=== PATIENT | female | born 1945 | race Hispanic/Latino ===

== ENCOUNTER 2018-08-26 23:28 | Inpatient (IN) | payer MEDICARE ==
[~2018-08-26] VITALS: Ht 152.4 cm; Wt 86.6 kg
[~2018-08-26 23:28] MED LIST: ASPIRIN81 M1 PO; HUMULIN R100 UNIT/2; HYDROCHLOROTHIA25 MG PO; LISINOPRIL-HCT1 EAC2; LISINOPRIL5 MG PO; MECLIZINE HCL12.5 MG PO; METFORMIN HCL1000 MG PO; NOVOLIN N100 UNIT/1 SQ; ONDANSETRON HCL4 MG PO; PRAVASTATIN SOD20 MG PO
--- OUTSIDE RECORDS SUMMARY | 2018-08-26 23:30 | XMS REPORT ---
Author Author [facility] Address Unknown Phone Unavailable Care Team Providers Care Pipe Wrapping Machine Operator Name Role Phone Unavailable Unavailable Problems This patient has no known problems. Allergies, Adverse Reactions, Alerts This patient has no known allergies or adverse reactions. Medications This patient has no known medications. Encounters Start Date/Time End Date/Time Encounter Type Admission Type Attending [facility] Care Department Encounter ID 2018-02-21 00:00:00 2018-02-21 00:00:00 Outpatient [facility] [id number] 2017-11-13 00:00:00 2017-11-13 00:00:00 Outpatient [facility] [id number] 2017-11-13 00:00:00 2017-11-13 00:00:00 Outpatient [facility] [id number] 2017-11-02 13:10:04 2017-11-02 13:10:04 Outpatient [facility] [id number] 2017-11-02 00:00:00 2017-11-02 00:00:00 Outpatient [facility] [id number] 2017-10-31 00:00:00 2017-10-31 00:00:00 Outpatient [facility] [id number] 2017-10-04 08:34:33 2017-10-04 08:34:33 Outpatient [facility] [id number] 2017-08-04 16:00:12 2017-08-04 16:00:12 Outpatient [facility] [id number] 2017-08-04 14:48:53 2017-08-04 14:48:53 Outpatient [facility] [id number] 2017-08-01 14:47:07 2017-08-01 14:47:07 Outpatient [facility] [id number] 2017-06-13 07:26:45 2017-06-13 07:26:45 Outpatient [facility] [id number] 2017-06-05 00:00:00 2017-06-05 00:00:00 Outpatient [facility] [id number] 2017-05-24 14:46:34 2017-05-24 14:46:34 Outpatient [facility] [id number] 2017-05-15 08:37:45 2017-05-15 08:37:45 Outpatient [facility] [id number] 2017-05-04 14:36:07 2017-05-04 14:36:07 Outpatient [facility] [id number]
[2018-08-26 23:57] LABS: BASOPHILS % 0.2 % (0.0-1.0); EOSINOPHILS # (AUTO) 0.1 (0.0-0.4); EOSINOPHILS % 0.6 % (0.0-6.0); HEMATOCRIT 37.4 % (34.2-44.1); HEMOGLOBIN 12.4 g/dL (12.0-16.0); LYMPHOCYTES # (AUTO) 2.2 (1.0-3.2); LYMPHOCYTES % 10.4 % (18.0-39.1); MEAN CORPUSCULAR HEMOGLOBIN 27.4 pg (28-32); MEAN CORPUSCULAR HGB CONC 33.2 g/dL (31-35); MEAN CORPUSCULAR VOLUME 82.6 fL (81-99); MONOCYTES # (AUTO) 1.4 (0.2-0.8); MONOCYTES % 6.7 % (4.4-11.3); NEUTROPHILS % 81.5 % (38.7-80.0); PLATELET COUNT 267 x10e3/uL (140-360); RED BLOOD COUNT 4.53 x10e6/uL (3.6-5.1); RED CELL DISTRIBUTION WIDTH 14.4 % (11.7-14.4)
[2018-08-27] VITALS (11 sets, daily range): BP systolic 94–187; BP diastolic 54–75
[2018-08-27] MEDS ORDERED: SODIUM CHLORIDE 0.9% 1000ML 1,000 ML IV ONE (00:15)
[2018-08-27] MEDS ORDERED: ONDANSETRON HCL INJ 2MG/ML 2ML 2 MG/ML VIAL IV STA (00:15)
[2018-08-27] MEDS ORDERED: SODIUM CHLORIDE 0.9% 1000ML 1,000 ML ONE (00:19)
[2018-08-27 00:22] LABS: ALBUMIN 3.5 g/dL (3.5-5.0); ALBUMIN/GLOBULIN RATIO 0.7 (0.8-2.0); ANION GAP 15.1 mmol/L (8-16); CREATININE, SERUM 1.23 mg/dL (0.57-1.11); POTASSIUM 4.1 mmol/L (3.5-5.1)
[2018-08-27 00:31] LABS: CALCIUM 9.6 mg/dL (8.4-10.2)
[2018-08-27] MEDS ORDERED: SODIUM CHLORIDE 0.9% 50ML 50 ML ONE (00:57)
[2018-08-27] MEDS ORDERED: IOPAMIDOL 370 MG/ML 200 ML INFUS..BTL INJ ONE (00:58)
[2018-08-27] MEDS ORDERED: CEFTRIAXONE SOD 1 GM/NS 50 ML 50 ML IV SCH (01:15)
[2018-08-27 01:53] LABS: BILIRUBIN,URINE NEGATIVE (NEGATIVE); CLARITY,URINE CLEAR (CLEAR); COLOR,URINE YELLOW (YELLOW); KETONES,URINE NEGATIVE (NEGATIVE); LEUKOCYTE ESTERASE ,URINE TRACE (NEGATIVE); NITRITE,URINE NEGATIVE (NEGATIVE); PROTEIN,URINE DIPSTICK NEGATIVE (NEGATIVE); URINE UROBILINOGEN 0.2 mg/dL (0.2 - 1)
--- NOTE | 2018-08-27 02:06 | Diagnostic Imaging Report ---
EXAM: CT Abdomen and Pelvis WITH contrast INDICATION: ^diarrhea, abd pain COMPARISON: None. TECHNIQUE: Abdomen and pelvis were scanned utilizing a multidetector helical scanner from the lung base to the pubic symphysis after administration of IV contrast. Coronal and sagittal reformations were obtained. Routine protocol was performed. Scan was performed when during portal venous phase. IV CONTRAST: 100 mL of Isovue-370 ORAL CONTRAST: Water RADIATION DOSE: Total DLP: 675 mGy*cm Estimated effective dose: (DLP x 0.015 x size factor) mSv COMPLICATIONS: None FINDINGS: LINES and TUBES: None. LOWER THORAX: Unremarkable HEPATOBILIARY: No focal hepatic lesions. No biliary ductal dilation. GALLBLADDER: No radio-opaque stones or sludge. No wall thickening. SPLEEN: No splenomegaly. PANCREAS: No focal masses or ductal dilatation. ADRENALS: No adrenal nodules KIDNEYS/URETERS: Kidneys enhance symmetrically. No hydronephrosis. No cystic or solid mass lesions. No stones. Bilateral extrarenal pelvis. GI TRACT: No abnormal distention, wall thickening, or evidence of bowel obstruction. Diffuse diverticulosis throughout the sigmoid colon with associated moderate inflammatory changes surrounding the distal sigmoid and wall thickening and enhancement consistent with acute diverticulitis. This is better seen on coronal image 48. Appendix is normal. PELVIC ORGANS/BLADDER: Unremarkable. LYMPH NODES: No lymphadenopathy. VESSELS: Moderate stenosis of the proximal SMA and mild stenosis of the proximal celiac trunk due to calcified plaques. Mild scattered atherosclerotic calcifications of the abdominal aorta without aneurysm. PERITONEUM / RETROPERITONEUM: No free air or fluid. BONES: Mild degenerative changes of the lower thoracic spine. SOFT TISSUES: Unremarkable. IMPRESSION: Diverticulosis of the sigmoid colon with associated acute diverticulitis. No perforation or abscess. Signed by: Dr. Terri Giles M.D. on 08/27/2018 2:03 AM
[2018-08-27 02:08] LABS: BACTERIA,URINE FEW /HPF; EPITHELIAL CELLS,URINE FEW /LPF; MUCUS,URINE FEW (RARE); WBC,URINE (MAN) 21-50 /HPF (0-5)
[2018-08-27] MEDS ORDERED: CIPROFLOXACIN 400 MG/D5W 200ML 200 ML IV SCH (02:15)
[2018-08-27] MEDS ORDERED: ONDANSETRON HCL INJ 2MG/ML 2ML 2 MG/ML VIAL IV PRN (02:15)
[2018-08-27] MEDS ORDERED: METRONIDAZOLE 500MG/NS 100ML 100 ML IV SCH (02:15)
[2018-08-27] MEDS ORDERED: ATORVASTATIN CA40 MG PO (02:43)
[2018-08-27] MEDS ORDERED: TYLENOL # 31 EA PO (02:45)
[2018-08-27] MEDS ORDERED: BENZONATATE100 MG PO (02:45)
[2018-08-27] MEDS ORDERED: GLIMEPIRIDE4 MG PO (02:45)
[2018-08-27] MEDS ORDERED: HUMULIN N100 UNITS/ SQ ×2 (02:46)
--- NOTE | 2018-08-27 02:50 | NUR ---
Pt received from ER. Pt A&O and in no apparent distress. Pt daughter at bedside. Pt on room air and tele. All safety measures ensured, bed alarm on, and pt call del rosario near. Pt encouraged to use call del rosario for assistance.
[2018-08-27] MEDS ORDERED: SODIUM CHLORIDE 0.9% 250ML 250 ML ONE (03:05)
--- NOTE | 2018-08-27 06:51 | NUR ---
H&P cc; N/V/D and fever HPI: 73yoF, PCP ??, with hx diverticulitis, now with N/V/D and fever, found to have acute diverticulitis, acute pancreatitis and UTI. no abdominal pain. PMH: diverticulosis, DM2 PShx; allergies; see emr fh/SH: no illicits/etoh; . meds; see MAR ROS: no cp/sob/NELSON/vision changes/skin rash/back pain v/s; revd PE tired appearing anicteric ns1s2 mod bs soft nd; minimal tenderness left lower abdomen skin dry n. affect a&ox3 kelley labs/meds; revd A/P: 73yoF Acute diverticulitis Acute pancreatitis PELON DM2 Morbid obesity BMI 35.4 UTI PLAN NPO IV abx IVF lipids/hba1c SCD/pepcid dispo; will need colonoscopy in 6-8 weeks Kris Clement MD, Phd.
[2018-08-27] MEDS ORDERED: DEXTROSE 50% SYRINGE 50 ML IV PRN (07:00)
--- NOTE | 2018-08-27 07:19 | NUR ---
Bedside report and walking rounds complete.
[2018-08-27] MEDS: SODIUM CHLORIDE 0.9% 1000ML 1,000 ML IV SCH ×2 (08:24→18:11)
[2018-08-27] MEDS: FAMOTIDINE 20 MG/2 ML VIAL IV SCH ×2 (08:44→17:53)
[2018-08-27] MEDS: INSULIN REGULAR, HUMAN 100 UNIT/1 ML 3ML VIAL SQ SCH ×4 (08:56→21:32)
[2018-08-27 09:19] LABS: CHOL/HDL RATIO 2.8 (3.0-3.6)
[2018-08-27] MEDS: METRONIDAZOLE 500MG/NS 100ML 100 ML IV SCH ×3 (12:07→21:31)
--- NOTE | 2018-08-27 18:11 | NUR ---
Pt in bed, no c/o pain. A&O x4, resp WNL. New IV to L hand, patent, no swelling or redness to insertion site. IV fluids being administered. Able to ambulate with walker provided by home. Tele monitor in place. Call light within reach, bed in lowest position.
--- NOTE | 2018-08-27 19:15 | NUR ---
Patient complain of headache. Dr Clement notified new orders received.
[2018-08-27] MEDS: ACETAMINOPHEN 1000 MG/100 ML IV PRN (19:47)
[2018-08-28] MEDS: SODIUM CHLORIDE 0.9% 1000ML 1,000 ML IV SCH ×3 (03:09→23:00)
[2018-08-28] MEDS: CIPROFLOXACIN 400 MG/D5W 200ML 200 ML IV SCH ×2 (03:09→11:42)
[2018-08-28 04:38] VITALS: BP 137/62
[2018-08-28] MEDS: ACETAMINOPHEN 1000 MG/100 ML IV PRN (04:40)
[2018-08-28] MEDS: METRONIDAZOLE 500MG/NS 100ML 100 ML IV SCH ×3 (05:28→21:49)
[2018-08-28 05:34] LABS: BASOPHILS % 0.2 % (0.0-1.0); EOSINOPHILS # (AUTO) 0.2 (0.0-0.4); EOSINOPHILS % 1.5 % (0.0-6.0); HEMOGLOBIN 10.6 g/dL (12.0-16.0); LYMPHOCYTES # (AUTO) 1.9 (1.0-3.2); LYMPHOCYTES % 17.4 % (18.0-39.1); MEAN CORPUSCULAR HEMOGLOBIN 27.5 pg (28-32); MEAN CORPUSCULAR HGB CONC 33.1 g/dL (31-35); MEAN CORPUSCULAR VOLUME 83.1 fL (81-99); MONOCYTES # (AUTO) 0.8 (0.2-0.8); MONOCYTES % 7.4 % (4.4-11.3); NEUTROPHILS # (AUTO) 7.7 (2.1-6.9); NEUTROPHILS % 72.8 % (38.7-80.0); PLATELET COUNT 193 x10e3/uL (140-360); RED BLOOD COUNT 3.85 x10e6/uL (3.6-5.1); RED CELL DISTRIBUTION WIDTH 14.6 % (11.7-14.4)
[2018-08-28 05:58] LABS: ANION GAP 9.7 mmol/L (8-16); CALCIUM 8.3 mg/dL (8.4-10.2); CREATININE, SERUM 1.01 mg/dL (0.57-1.11); MAGNESIUM 1.7 MG/DL (1.3-2.1); POTASSIUM 3.7 mmol/L (3.5-5.1)
--- NOTE | 2018-08-28 06:21 | NUR ---
DR. CHANCE NOTIFIED OF HGB RESULT NO NEW ORDERS.
[2018-08-28 07:25] VITALS: BP 144/64
[2018-08-28] MEDS: FAMOTIDINE 20 MG/2 ML VIAL IV SCH ×2 (07:48→17:11)
--- NOTE | 2018-08-28 08:02 | NUR ---
IM- progress note O/N; no events ROS: no cp/sob/NELSON/vision changes/skin rash/back pain v/s; revd PE tired appearing anicteric ns1s2 mod bs soft nd; minimal tenderness left lower abdomen skin dry n. affect a&ox3 kelley labs/meds; revd A/P: 73yoF Acute diverticulitis Acute pancreatitis PELON DM2 Morbid obesity BMI 35.4 UTI PLAN NPO IV abx IVF lipids/hba1c SCD/pepcid dispo; will need colonoscopy in 6-8 weeks 08/28/18 cont care; advance to CLD. Kris Clement MD, Phd.
[2018-08-28] MEDS: INSULIN REGULAR, HUMAN 100 UNIT/1 ML 3ML VIAL SQ SCH ×4 (08:05→20:45)
--- NOTE | 2018-08-28 08:48 | NUR ---
Pt at bedside, advanced diet, tolerating well. C/o pain / to ABD. IV patent, no s/s of infiltration. Able to ambulate with assistance and use of a cane. A&O x3. Resp WNL. Call light within reach, bed in lowest position.
[2018-08-28 09:55] VITALS: BP 144/64
[2018-08-28 11:14] VITALS: BP 146/65
[2018-08-28 15:26] VITALS: BP 152/73
--- NOTE | 2018-08-28 18:52 | NUR ---
Received report from previous nurse. Call light within reach. Patient in bed. Family at bedside
[2018-08-28 19:25] VITALS: BP 147/66
[2018-08-29] VITALS (8 sets, daily range): BP systolic 132–187; BP diastolic 62–71
[2018-08-29] MEDS: METRONIDAZOLE 500MG/NS 100ML 100 ML IV SCH ×3 (06:14→22:20)
--- NOTE | 2018-08-29 07:03 | NUR ---
Gave report to oncoming nurse. Call light within reach. Patient in the bathroom. daughter at bedside
[2018-08-29] MEDS: INSULIN REGULAR, HUMAN 100 UNIT/1 ML 3ML VIAL SQ SCH ×4 (08:05→21:30)
[2018-08-29] MEDS: FAMOTIDINE 20 MG/2 ML VIAL IV SCH ×2 (08:10→16:51)
[2018-08-29] MEDS ORDERED: DOCUSATE SODIUM 100 MG CAP PO PRN (08:30)
[2018-08-29 08:39] LABS: BASOPHILS % 0.2 % (0.0-1.0); EOSINOPHILS # (AUTO) 0.2 (0.0-0.4); EOSINOPHILS % 1.3 % (0.0-6.0); HEMATOCRIT 33.7 % (34.2-44.1); LYMPHOCYTES # (AUTO) 2.6 (1.0-3.2); LYMPHOCYTES % 21.2 % (18.0-39.1); MEAN CORPUSCULAR HGB CONC 32.6 g/dL (31-35); MEAN CORPUSCULAR VOLUME 82.8 fL (81-99); MONOCYTES # (AUTO) 0.8 (0.2-0.8); MONOCYTES % 6.8 % (4.4-11.3); NEUTROPHILS # (AUTO) 8.7 (2.1-6.9); NEUTROPHILS % 69.9 % (38.7-80.0); PLATELET COUNT 242 x10e3/uL (140-360); RED BLOOD COUNT 4.07 x10e6/uL (3.6-5.1); RED CELL DISTRIBUTION WIDTH 14.5 % (11.7-14.4)
[2018-08-29] MEDS: LABETALOL HCL 5 MG/ML 20ML VIAL IV PRN (09:00)
[2018-08-29] MEDS: SODIUM CHLORIDE 0.9% 1000ML 1,000 ML IV SCH ×2 (09:00→19:00)
[2018-08-29] MEDS: CIPROFLOXACIN 400 MG/D5W 200ML 200 ML IV SCH (09:00)
[2018-08-29 09:04] LABS: ANION GAP 10.7 mmol/L (8-16); BLOOD UREA NITROGEN 7 mg/dL (7-26); BUN/CREATININE RATIO 8 (6-25); CALCIUM 8.6 mg/dL (8.4-10.2); CARBON DIOXIDE 23 mmol/L (22-29); CHLORIDE 102 mmol/L (98-107); CREATININE, SERUM 0.86 mg/dL (0.57-1.11); EST GLOMERULAR FILTRATION RATE > 60 ML/MIN (60-); GLUCOSE 201 mg/dL (74-118); MAGNESIUM 1.4 MG/DL (1.3-2.1); POTASSIUM 3.7 mmol/L (3.5-5.1); SODIUM 132 mmol/L (136-145)
--- NOTE | 2018-08-29 18:49 | NUR ---
walking rounds made with shift superintendent caustic cresylate nurse, patient aware of change and in no distress. call del rosario within reach and bed in lowest position.
--- NOTE | 2018-08-29 19:16 | NUR ---
Received patient in bed watching tv with family at bedside. Resp even and unlabored. Denies n/v or pain at this time. Call light within reach and instructed to call for assistance.
--- NOTE | 2018-08-29 20:26 | NUR ---
Report called to Summer ROSAS. AAOX3. No resp distress. Denies n/v or pain at this time. All belongings with patient. No complaints.
--- NOTE | 2018-08-29 20:39 | NUR ---
RECEIVED PT FROM OBSERVATION VIA WHEEL CHAIR.PT AAO X 3.RESPIRATIONS EVEN/NON LABORED.NO S/S OF DISTRESS NOTED.PT DENIES ANY PAIN AT THIS TIME.DAUGHTER AT BEDSIDE.INSTRUCTED PT TO CALL FOR ASSISTANCE NEEDED BY USING CALL LIGHT.PT VERBALIZED UNDERSTANDING.CALL LIGHT WITHIN EASY REACH.
--- NOTE | 2018-08-29 21:58 | NUR ---
IM- progress note O/N; no events ROS: no cp/sob/NELSON/vision changes/skin rash/back pain v/s; revd PE tired appearing anicteric ns1s2 mod bs soft nd; minimal tenderness left lower abdomen skin dry n. affect a&ox3 kelley labs/meds; revd A/P: 73yoF Acute diverticulitis Acute pancreatitis PELON DM2 Morbid obesity BMI 35.4 UTI PLAN NPO IV abx IVF lipids/hba1c SCD/pepcid dispo; will need colonoscopy in 6-8 weeks 08/28/18 cont care; advance to CLD. 08/29 at 715am: Cultures negative; PT consult; CLD; check labs; Kris Clement MD, Phd.
[2018-08-30] VITALS (7 sets, daily range): BP systolic 137–189; BP diastolic 58–77
[2018-08-30] MEDS: SODIUM CHLORIDE 0.9% 1000ML 1,000 ML IV SCH ×2 (05:59→17:29)
[2018-08-30] MEDS: METRONIDAZOLE 500MG/NS 100ML 100 ML IV SCH ×3 (06:06→21:40)
[2018-08-30] MEDS: METOPROLOL TARTRATE 25 MG TAB PO SCH ×2 (06:55→17:15)
--- NOTE | 2018-08-30 07:15 | NUR ---
pt alert resp even and unlabored at this time no distress noted, pt able to make needs known. call light in reach.
--- NOTE | 2018-08-30 07:31 | NUR ---
REPORT GIVEN TO ONCOMING NURSE,WALKING ROUNDS MADE.PT RESTING IN BED WITH NO S/S OF DISTRESS.
[2018-08-30 07:50] LABS: BASOPHILS % 0.3 % (0.0-1.0); EOSINOPHILS # (AUTO) 0.2 (0.0-0.4); EOSINOPHILS % 2.4 % (0.0-6.0); HEMATOCRIT 31.1 % (34.2-44.1); HEMOGLOBIN 10.1 g/dL (12.0-16.0); LYMPHOCYTES # (AUTO) 2.6 (1.0-3.2); LYMPHOCYTES % 27.7 % (18.0-39.1); MEAN CORPUSCULAR HEMOGLOBIN 27.2 pg (28-32); MEAN CORPUSCULAR HGB CONC 32.5 g/dL (31-35); MEAN CORPUSCULAR VOLUME 83.8 fL (81-99); MONOCYTES # (AUTO) 0.7 (0.2-0.8); MONOCYTES % 7.9 % (4.4-11.3); NEUTROPHILS # (AUTO) 5.7 (2.1-6.9); NEUTROPHILS % 61.3 % (38.7-80.0); PLATELET COUNT 248 x10e3/uL (140-360); RED BLOOD COUNT 3.71 x10e6/uL (3.6-5.1); RED CELL DISTRIBUTION WIDTH 14.5 % (11.7-14.4)
[2018-08-30 08:11] LABS: ANION GAP 10.8 mmol/L (8-16); BLOOD UREA NITROGEN 6 mg/dL (7-26); BUN/CREATININE RATIO 7 (6-25); CALCIUM 8.7 mg/dL (8.4-10.2); CARBON DIOXIDE 23 mmol/L (22-29); CHLORIDE 105 mmol/L (98-107); CREATININE, SERUM 0.83 mg/dL (0.57-1.11); EST GLOMERULAR FILTRATION RATE > 60 ML/MIN (60-); GLUCOSE 133 mg/dL (74-118); POTASSIUM 3.8 mmol/L (3.5-5.1); SODIUM 135 mmol/L (136-145)
[2018-08-30] MEDS ORDERED: NON-FORMULARY MEDICATION (Lisinopril 10 MG) PO SCH (09:00)
[2018-08-30] MEDS: INSULIN REGULAR, HUMAN 100 UNIT/1 ML 3ML VIAL SQ SCH ×4 (09:24→21:05)
[2018-08-30] MEDS: FAMOTIDINE 20 MG/2 ML VIAL IV SCH ×2 (09:34→17:11)
[2018-08-30] MEDS: CIPROFLOXACIN 400 MG/D5W 200ML 200 ML IV SCH (09:34)
[2018-08-30] MEDS: LISINOPRIL 10 MG TAB PO SCH (09:35)
--- NOTE | 2018-08-30 11:02 | NUR ---
IM- progress note O/N; no events ROS: no cp/sob/NELSON/vision changes/skin rash/back pain v/s; revd PE tired appearing anicteric ns1s2 mod bs soft nd; minimal tenderness left lower abdomen skin dry n. affect a&ox3 kelley labs/meds; revd A/P: 73yoF Acute diverticulitis Acute pancreatitis PELON DM2 Morbid obesity BMI 35.4 UTI PLAN NPO IV abx IVF lipids/hba1c SCD/pepcid dispo; will need colonoscopy in 6-8 weeks 08/28/18 cont care; advance to CLD. 08/29 at 715am: Cultures negative; PT consult; CLD; check labs; 08/30 check labs; Full liq diet; adjust medications for BP. Kris Clement MD, Phd.
[2018-08-30] MEDS: LABETALOL HCL 5 MG/ML 20ML VIAL IV PRN (17:15)
--- NOTE | 2018-08-30 19:22 | NUR ---
report given to to oncoming nurse, for continued care.
[2018-08-30] MEDS ORDERED: NON-FORMULARY MEDICATION (Atorvastatin Calcium 40 MG) PO SCH (21:00)
[2018-08-30] MEDS: ATORVASTATIN 40 MG TAB PO SCH (21:05)
[2018-08-31] VITALS (8 sets, daily range): BP systolic 136–191; BP diastolic 60–76
[2018-08-31] MEDS: SODIUM CHLORIDE 0.9% 1000ML 1,000 ML IV SCH ×3 (01:00→21:23)
[2018-08-31] MEDS: METRONIDAZOLE 500MG/NS 100ML 100 ML IV SCH ×3 (06:00→21:23)
--- NOTE | 2018-08-31 07:00 | NUR ---
RECEIVED AM REPORT FROM NURSE. PT IS AWAKE SITTING IN BEDSIDE CHAIR, NO S/S OF DISTRESS. CALL LIGHT WITHIN REACH. FAMILY AT THE BEDSIDE.
[2018-08-31] MEDS: CIPROFLOXACIN 400 MG/D5W 200ML 200 ML IV SCH (09:20)
[2018-08-31] MEDS: METOPROLOL TARTRATE 25 MG TAB PO SCH ×2 (09:20→18:03)
[2018-08-31] MEDS: LISINOPRIL 10 MG TAB PO SCH (09:20)
[2018-08-31] MEDS: FAMOTIDINE 20 MG/2 ML VIAL IV SCH (09:20)
[2018-08-31] MEDS: INSULIN REGULAR, HUMAN 100 UNIT/1 ML 3ML VIAL SQ SCH ×4 (10:30→21:22)
--- NOTE | 2018-08-31 12:12 | NUR ---
IMM letter delivered and explained to pt. She verbalized understanding. Signed copy placed in chart. Copy to pt's transition of care folder. CM business card left for any questions/concerns. CM information also written on white board.
[2018-08-31] MEDS ORDERED: ONDANSETRON HCL 4 MG ORAL DISINTEGRATING TAB PO PRN (16:30)
[2018-08-31] MEDS: FAMOTIDINE 20 MG TAB PO SCH (18:03)
--- NOTE | 2018-08-31 18:07 | NUR ---
PT IS SITTING IN THE RECLINER, NO S/S OF DISTRESS. DAUGHTER IS AT THE BEDSIDE.
[2018-08-31] MEDS: ATORVASTATIN 40 MG TAB PO SCH (21:23)
[2018-08-31] MEDS: BENZONATATE 100 MG CAP PO PRN (22:11)
[2018-09-01 00:17] VITALS: BP 158/71
[2018-09-01 04:00] VITALS: BP 170/70
[2018-09-01] MEDS: METRONIDAZOLE 500MG/NS 100ML 100 ML IV SCH (05:23)
--- NOTE | 2018-09-01 06:56 | NUR ---
Report given to oncoming nurse,walking round done.
--- NOTE | 2018-09-01 07:00 | NUR ---
RECEIVED AM REPORT FROM RN. PT IS AWAKE SITTING IN BEDSIDE CHAIR, NO S/S OF DISTRESS. DAUGHTER IS AT THE BEDSIDE. CALL LIGHT IS WITHIN REACH.
[2018-09-01 08:05] VITALS: BP 180/77
[2018-09-01] MEDS: FAMOTIDINE 20 MG TAB PO SCH (08:37)
[2018-09-01 08:38] VITALS: BP 180/77
[2018-09-01] MEDS: METOPROLOL TARTRATE 25 MG TAB PO SCH (08:38)
[2018-09-01] MEDS: LISINOPRIL 10 MG TAB PO SCH (08:38)
[2018-09-01] MEDS: SODIUM CHLORIDE 0.9% 1000ML 1,000 ML IV SCH (09:30)
--- NOTE | 2018-09-01 10:09 | NUR ---
dos: 08/31/18 AT 8PM IM- progress note O/N; no events ROS: no cp/sob/NELSON/vision changes/skin rash/back pain v/s; revd PE tired appearing anicteric ns1s2 mod bs soft nd; minimal tenderness left lower abdomen skin dry n. affect a&ox3 kelley labs/meds; revd A/P: 73yoF Acute diverticulitis Acute pancreatitis PELON DM2 Morbid obesity BMI 35.4 UTI PLAN NPO IV abx IVF lipids/hba1c SCD/pepcid dispo; will need colonoscopy in 6-8 weeks 08/28/18 cont care; advance to CLD. 08/29 at 715am: Cultures negative; PT consult; CLD; check labs; 08/30 check labs; Full liq diet; adjust medications for BP. 08/31 improving; cont care; advance diet Kris Clement MD, Phd.
--- NOTE | 2018-09-01 10:09 | NUR ---
D/C summary Principal Dx; Acute diverticulitis Acute pancreatitis PELON UTI with pseudomonas secondary Dx: DM2 Morbid obesity BMI 35.4 PLAN NPO IV abx IVF lipids/hba1c SCD/pepcid dispo; will need colonoscopy in 6-8 weeks 08/28/18 cont care; advance to CLD. 08/29 at 715am: Cultures negative; PT consult; CLD; check labs; 08/30 check labs; Full liq diet; adjust medications for BP. 08/31 improving; cont care; advance diet 09/01 control BP; pseudomonas UTI- sen to keflex and cipro d/c home f/u pcp 1 week Must have Colonoscopy in 6 - 8 weeks stable d/c>35mins Kris Clement MD, Phd.
[2018-09-01] MEDS ORDERED: KEFLEX500 MG PO (10:13)
[2018-09-01] MEDS ORDERED: FAMOTIDINE20 MG PO (10:13)
[2018-09-01] MEDS ORDERED: HYDRALAZINE HCL25 MG PO (10:13)
[2018-09-01] MEDS: CIPROFLOXACIN 400 MG/D5W 200ML 200 ML IV SCH (10:20)
[2018-09-01] MEDS ORDERED: CIPRO500 MG PO (10:26)
[2018-09-01] MEDS ORDERED: FLAGYL500 MG PO (10:26)
[2018-09-01] MEDS: INSULIN REGULAR, HUMAN 100 UNIT/1 ML 3ML VIAL SQ SCH ×2 (10:32→12:00)
[2018-09-01] MEDS ORDERED: HYDRALAZINE HCL 20 MG/ML VIAL IV NR ×2 (10:45→14:00)
[2018-09-01 12:00] VITALS: BP 178/73
[2018-09-01] MEDS: HYDRALAZINE HCL 25 MG TAB PO SCH ×2 (12:00→14:18)
[2018-09-01] MEDS: BENZONATATE 100 MG CAP PO PRN (13:55)
--- NOTE | 2018-09-01 14:18 | NUR ---
BLOOD PRESSURE IS STILL ELEVATED (174/71), CONTACTED DR. CHANCE AND RECEIVED X1 ORDER FOR HYDRALAZINE 5MG IVP. WILL RE-ASSESS BP IN 30 MIN. PT PENDING DISCHARGE UNTIL BP DECREASES.
--- NOTE | 2018-09-01 14:32 | NUR ---
Nutrition Screen Note RD Recommendation for Physician: Advance diet as tolerated to an 1800 ADA diet Plan of Care: RD following, monitoring for tolerance and adequacy Nutrition reason for involvement: LOS Primary Diagnose(s):Diverticulitis PMH: T2DM, Ht: 60in Wt:191lb BMI:37.3 kg/m2 IBW:100lb RD Assessment: (09/01/2018) Chart reviewed. Labs and meds reviewed. Initial encounter with patient. Pt denies any known food allergies, but typically avoids meat. Pt denies any difficulty chewing or swallowing, nausea, vomiting, or diarrhea. Good Po intake since diet was initiated. No wt changes. Current Diet: GI soft Malnutrition Evaluation (09/01/2018) The patient does not meet criteria for a specified degree of malnutrition at this time. Will re-evaluate at follow-up as appropriate. Diet Education Needs Assessment: Diet education not indicated. Nutrition Care Level: low Signed: Kevin Anders RD, LD, [facility]
--- NOTE | 2018-09-01 14:56 | NUR ---
RECHECKED PT'S BP: 147/67
== END 2018-09-01 15:31 | disposition home or self-care (01) | DRG 391 ==
LOC: ER 23:28 → ERHOLD 08-27 02:32 → IMCU 08-27 02:56 → OBSVTOIN 08-27 06:58 → MED/SURG2 08-29 21:03
PROVIDERS: ADMIT Internal Medicine; ATTEND Internal Medicine
DX: K57.92 Diverticulitis of intestine, part unspecified, without perforation or abscess without bleeding (principal); K85.90 Acute pancreatitis without necrosis or infection, unspecified; N39.0 Urinary tract infection, site not specified; N17.9 Acute kidney failure, unspecified; E11.9 Type 2 diabetes mellitus without complications; E66.01 Morbid (severe) obesity due to excess calories; Z68.35 Body mass index [BMI] 35.0-35.9, adult
CPT/HCPCS: 36415; 74177; 80048; 80053; 80061; 81001; 82150; 82948; 83036; 83690; 83735; 85025; 87086; 87186; 96361; 96372; 96374; 97139; 99284; J0360; J0696; J2405; J7030; J7050; Q9967

== ENCOUNTER 2018-09-02 15:44 | Emergency (ER) | payer MEDICARE ==
[~2018-09-02] VITALS: Ht 152.4 cm; Wt 86.6 kg
[~2018-09-02 15:44] MED LIST changes: +ATORVASTATIN CA40 MG PO; +BENZONATATE100 MG PO; +CIPRO500 MG PO; +FAMOTIDINE20 MG PO; +FLAGYL500 MG PO; +GLIMEPIRIDE4 MG PO; +HUMULIN N100 UNITS/ SQ; +HYDRALAZINE HCL25 MG PO; +KEFLEX500 MG PO; +TYLENOL # 31 EA PO
[2018-09-02] MEDS ORDERED: LORAZEPAM INJ 2 MG/ML VIAL IV NR (16:15)
[2018-09-02 16:25] LABS: BASOPHILS % 0.2 % (0.0-1.0); EOSINOPHILS # (AUTO) 0.1 (0.0-0.4); EOSINOPHILS % 0.4 % (0.0-6.0); HEMATOCRIT 34.8 % (34.2-44.1); HEMOGLOBIN 11.7 g/dL (12.0-16.0); LYMPHOCYTES # (AUTO) 2.5 (1.0-3.2); LYMPHOCYTES % 17.8 % (18.0-39.1); MEAN CORPUSCULAR HEMOGLOBIN 27.5 pg (28-32); MEAN CORPUSCULAR HGB CONC 33.6 g/dL (31-35); MEAN CORPUSCULAR VOLUME 81.7 fL (81-99); MONOCYTES % 7.4 % (4.4-11.3); NEUTROPHILS # (AUTO) 10.1 (2.1-6.9); NEUTROPHILS % 73.6 % (38.7-80.0); PLATELET COUNT 315 x10e3/uL (140-360); RED BLOOD COUNT 4.26 x10e6/uL (3.6-5.1)
--- NOTE | 2018-09-02 16:45 | Diagnostic Imaging Report ---
History:Headaches Comparison studies: None Technique: Axial images were obtained from the skull base to the vertex. Coronal and sagittal images reconstructed from the axial data. Dose modulation, iterative reconstruction, and/or weight based adjustment of the mA/kV was utilized to reduce the radiation dose to as low as reasonably achievable. Intravenous contrast: None Findings: Scalp/skull: No abnormalities. Extra-axial spaces: No masses. No fluid collections. Brain sulci: Mildly prominent. Ventricles: Mild compensatory dilatation. No hydrocephalus. Parenchyma: Confluent hypodensities throughout the deep and subcortical supratentorial white matter are small vessel ischemic changes. No masses, hemorrhage, acute or chronic cortical vascular insults. Sellar/suprasellar region: No abnormalities. Craniocervical junction: Patent foramen magnum. No Chiari one malformation. Incidental findings: Atherosclerotic calcifications in the carotid siphons . Diffuse chronic inflammatory opacification of the right sphenoid sinus. Impression: No acute abnormalities. Chronic findings: 1. Mild generalized volume loss. 2. Moderate supratentorial white matter small vessel ischemic changes. Signed by: Dr. Reuben Gavin M.D. on 09/02/2018 4:42 PM
[2018-09-02 16:46] LABS: ANION GAP 16.3 mmol/L (8-16); CALCIUM 9.2 mg/dL (8.4-10.2); CREATININE, SERUM 1.01 mg/dL (0.57-1.11); POTASSIUM 3.3 mmol/L (3.5-5.1)
[2018-09-02 17:28] LABS: BILIRUBIN,URINE NEGATIVE (NEGATIVE); CLARITY,URINE SL CLOUDY (CLEAR); COLOR,URINE YELLOW (YELLOW); KETONES,URINE TRACE (NEGATIVE); LEUKOCYTE ESTERASE ,URINE MODERATE (NEGATIVE); NITRITE,URINE NEGATIVE (NEGATIVE); PROTEIN,URINE DIPSTICK NEGATIVE (NEGATIVE); URINE UROBILINOGEN 0.2 mg/dL (0.2 - 1)
[2018-09-02] MEDS ORDERED: ONDANSETRON HCL 4 MG ORAL DISINTEGRATING TAB PO ONE (17:30)
[2018-09-02] MEDS ORDERED: LORAZEPAM 1 MG TAB PO NR (17:30)
[2018-09-02] MEDS ORDERED: ONDANSETRON HCL 4 MG ORAL DISINTEGRATING TAB PO NR (17:30)
[2018-09-02 17:33] LABS: BACTERIA,URINE FEW /HPF; EPITHELIAL CELLS,URINE MANY /LPF; RBC,URINE 0-5 /HPF (0-5); WBC,URINE (MAN) 0-5 /HPF (0-5)
[2018-09-02 18:59] VITALS: BP 142/84
== END 2018-09-02 19:20 | disposition home or self-care (01) ==
LOC: ER 15:44
DX: R06.00 Dyspnea, unspecified (principal); G44.211 Episodic tension-type headache, intractable; F41.1 Generalized anxiety disorder; I10 Essential (primary) hypertension; E11.9 Type 2 diabetes mellitus without complications
CPT/HCPCS: 36415; 70450; 80048; 81001; 85025; 99284; Q0162

== ENCOUNTER 2019-02-20 23:33 | Inpatient (IN) | payer MEDICARE ==
[~2019-02-20] VITALS: Ht 152.4 cm; Wt 86.6 kg
[2019-02-20] MEDS ORDERED: ONDANSETRON HCL INJ 2MG/ML 2ML 2 MG/ML VIAL IV STA (23:44)
[2019-02-20] MEDS ORDERED: SODIUM CHLORIDE 0.9% 1000ML 1,000 ML IV ONE (23:45)
[2019-02-20] MEDS ORDERED: DIATRIZOATE MEGL/DIATRIZOA SOD 30 ML BTL PO ONE (23:57)
[2019-02-21 00:39] LABS: BASOPHILS % 0.2 % (0.0-1.0); EOSINOPHILS # (AUTO) 0.1 (0.0-0.4); EOSINOPHILS % 0.5 % (0.0-6.0); HEMATOCRIT 35.5 % (34.2-44.1); HEMOGLOBIN 11.6 g/dL (12.0-16.0); LYMPHOCYTES # (AUTO) 2.5 (1.0-3.2); LYMPHOCYTES % 19.8 % (18.0-39.1); MEAN CORPUSCULAR HEMOGLOBIN 26.9 pg (28-32); MEAN CORPUSCULAR HGB CONC 32.7 g/dL (31-35); MEAN CORPUSCULAR VOLUME 82.4 fL (81-99); MONOCYTES # (AUTO) 0.8 (0.2-0.8); MONOCYTES % 6.7 % (4.4-11.3); NEUTROPHILS % 72.3 % (38.7-80.0); PLATELET COUNT 288 x10e3/uL (140-360); RED BLOOD COUNT 4.31 x10e6/uL (3.6-5.1); RED CELL DISTRIBUTION WIDTH 13.5 % (11.7-14.4)
[2019-02-21 00:47] LABS: AMYLASE 245 U/L (25-125); LIPASE 366 U/L (8-78)
[2019-02-21 00:57] LABS: ALBUMIN 3.5 g/dL (3.5-5.0); ALBUMIN/GLOBULIN RATIO 0.7 (0.8-2.0); ANION GAP 15.3 mmol/L (8-16); CALCIUM 9.3 mg/dL (8.4-10.2); CREATININE, SERUM 1.25 mg/dL (0.57-1.11); POTASSIUM 4.3 mmol/L (3.5-5.1)
[2019-02-21 00:59] LABS: BILIRUBIN,URINE NEGATIVE (NEGATIVE); CLARITY,URINE SL CLOUDY (CLEAR); COLOR,URINE YELLOW (YELLOW); KETONES,URINE NEGATIVE (NEGATIVE); LEUKOCYTE ESTERASE ,URINE TRACE (NEGATIVE); NITRITE,URINE NEGATIVE (NEGATIVE); PROTEIN,URINE DIPSTICK TRACE (NEGATIVE); URINE UROBILINOGEN 0.2 mg/dL (0.2 - 1)
[2019-02-21 01:13] LABS: BACTERIA,URINE MODERATE /HPF; EPITHELIAL CELLS,URINE MODERATE /LPF
--- NOTE | 2019-02-21 02:09 | Diagnostic Imaging Report ---
EXAM: CT Abdomen and Pelvis WITH contrast INDICATION: Left-sided abdominal pain, diarrhea. COMPARISON: CT abdomen/pelvis 08/27/2018. TECHNIQUE: Abdomen and pelvis were scanned utilizing a multidetector helical scanner from the lung base to the pubic symphysis after administration of IV contrast. Coronal and sagittal reformations were obtained. Routine protocol was performed. Scan was performed when during portal venous phase. IV CONTRAST: 100 mL of Isovue-370 ORAL CONTRAST: Gastrografin RADIATION DOSE: Total DLP: 721.1 mGy*cm Estimated effective dose: (DLP x 0.015 x size factor) mSv COMPLICATIONS: None FINDINGS: LINES and TUBES: None. LOWER THORAX: Unremarkable HEPATOBILIARY: Diffuse mild hepatic steatosis. No focal hepatic lesions. There is intra- and extra- hepatic biliary dilation likely post cholecystectomy reservoir effect. GALLBLADDER: Status post cholecystectomy. SPLEEN: No splenomegaly. PANCREAS: No focal masses or ductal dilatation. ADRENALS: No adrenal nodules KIDNEYS/URETERS: No evidence of mass, hydronephrosis, or stone. GI TRACT: No evidence of bowel obstruction. There is sigmoid diverticulosis with mild wall thickening and surrounding inflammatory changes (coronal image 41). Degree of inflammatory changes are decreased compared to CT on 08/27/2018. Appendix is normal. There is wall thickening within a short segment of small bowel in the jejunum, as seen on series 2, image 55. There is a possible jejunojejunal intussusception on series 2, image 50. PELVIC ORGANS/BLADDER: Unremarkable. LYMPH NODES: No lymphadenopathy. VESSELS: Mild scattered atherosclerotic calcifications of the abdominal aorta without aneurysm. PERITONEUM / RETROPERITONEUM: No free air or fluid. BONES: No acute osseous abnormality. Mild degenerative changes of the visualized spine. SOFT TISSUES: Unremarkable. IMPRESSION: Acute sigmoid diverticulitis with mild inflammatory changes. No evidence of perforation or abscess. Mild wall thickening within a short segment jejunal loop could represent focal enteritis. Possible small jejunojejunal intussusception. Signed by: Dr. Juan De MD on 02/21/2019 2:04 AM
--- NOTE | 2019-02-21 02:20 | NUR ---
SEE CHART FOR NURSES NOTES.
[2019-02-21] MEDS ORDERED: HYDROMORPHONE 1MG/1ML INJ IV PRN (02:30)
[2019-02-21] MEDS ORDERED: HYDRALAZINE HCL 20 MG/ML VIAL IV PRN (02:30)
[2019-02-21] MEDS ORDERED: ONDANSETRON HCL INJ 2MG/ML 2ML 2 MG/ML VIAL IV PRN (02:30)
[2019-02-21] MEDS ORDERED: DEXTROSE 50% SYRINGE 50 ML IV PRN (02:30)
--- NOTE | 2019-02-21 03:15 | NUR ---
Pt admitted to room 201 via stretcher, able to transfer to bed with minimal assist. Alert and orient to name, hospital, time, and diagnosis: Pancreatitis, Vomiting, and Diverticulitis. Pt c/o x1 day n/v/d. c/o mild lower abd pain, refuses pain medication at this time. Last vomiting is more than 3 hours. Brown loose stools noted. Skin warm, dry, and intact. 22g IV right FA, flushed and started NS @125ml/hr. Oriented to room. Call del rosario within reach. Bed low and locked. Daughter at bedside. Will continue to monitor.
[2019-02-21] MEDS ORDERED: TRAZODONE HCL50 MG PO (03:31)
--- NOTE | 2019-02-21 03:36 | NUR ---
H&P cc; abdominal pain HPI: 73yoF, PCP ??, developed abdominal pain, N/V/D. No fever. PMH: diverticulosis, DM2, acute pancreatitis, UTI with pseudomonas, PELON PShx; unknown allergies; see emr fh/SH: no illicits/etoh; . meds; see MAR ROS: no cp/sob/NELSON/vision changes/skin rash/back pain v/s; revd PE tired appearing anicteric ns1s2 mod bs soft nd; Moderate tenderness lower abdomen; no guarding. skin dry n. affect a&ox3 kelley labs/meds; revd A/P: 73yoF Acute diverticulitis Acute pancreatitis Hyponatremia UTI PELON DM2 Morbid obesity BMI 35.4 ??Intussusception?? PLAN NPO; IV abx; IVF; GI consult lipids/hba1c SCD/pepcid dispo; will need colonoscopy in 6-8 weeks Kris Clement MD, Phd.
[2019-02-21] MEDS: LEVOFLOXACIN 500MG/D5W 100ML IV SCH (03:45)
[2019-02-21] MEDS: SODIUM CHLORIDE 0.9% 1000ML 1,000 ML IV SCH ×3 (03:45→18:03)
[2019-02-21 05:57] LABS: CHOL/HDL RATIO 3.6 (3.0-3.6)
[2019-02-21] MEDS: METRONIDAZOLE 500MG/NS 100ML IV SCH ×4 (06:30→23:10)
--- NOTE | 2019-02-21 07:00 | NUR ---
BEDSIDE SHIFT REPORT RECEIVED FROM THE REVENUE CYCLE ADMINISTRATOR RN. EDUCATED PT ABOUT FALL PRECAUTIONS. CALL LIGHT WITH IN EASY REACH. INSTRUCTED PT TO USE CALL LIGHT FOR ALL THE NEEDS. PT VERBALIZED UNDERSTANDING. BED ALARM IS ON. BED IS LOW AND LOCKED. SIDE RAILS X2. PT DAUGHTER AT BEDSIDE. PT DENIES NEEDS AT THIS TIME.
[2019-02-21] MEDS: INSULIN REGULAR, HUMAN 100 UNIT/1 ML 3ML VIAL SQ SCH ×4 (07:30→20:38)
[2019-02-21 08:01] VITALS: BP 140/68
[2019-02-21 08:24] VITALS: BP 160/68
[2019-02-21] MEDS: PANTOPRAZOLE 40 MG 10ML VIAL IV SCH (09:32)
--- NOTE | 2019-02-21 10:00 | NUR ---
PAGED DR. CHANCE REGARDING PT HOME MEDS. WAITING FOR THE RESPONSE.
--- NOTE | 2019-02-21 11:35 | NUR ---
PAGED DR. CHANCE AND REPORTED PT BLOOD SUGAR.
--- NOTE | 2019-02-21 11:50 | NUR ---
OKAY TO START CLEAR LIQUIDS PER DR. CHANCE. 8 FL OZ APPLE JUICE GIVEN. PT IS ALERT. NO DISTRESS NOTED. PT DAUGHTER AT BEDSIDE.
[2019-02-21 11:58] VITALS: BP 144/62
[2019-02-21] MEDS ORDERED: SODIUM CHLORIDE 0.9% 50ML 50 ML ONE (14:07)
[2019-02-21] MEDS ORDERED: IOPAMIDOL 370 MG/ML 200 ML INFUS..BTL INJ ONE (14:07)
[2019-02-21] MEDS: HYDRALAZINE HCL 25 MG TAB PO SCH ×2 (16:00→21:45)
[2019-02-21 16:16] VITALS: BP 149/65
--- NOTE | 2019-02-21 19:00 | NUR ---
BEDSIDE SHIFT REPORT GIVEN TO THE SPINNERET PERSON RN. PT DENIED FURTHER NEEDS
[2019-02-21 20:00] VITALS: BP 128/58
[2019-02-21 21:00] VITALS: BP 128/58
[2019-02-22] VITALS (8 sets, daily range): BP systolic 121–164; BP diastolic 56–73
[2019-02-22] MEDS: LEVOFLOXACIN 500MG/D5W 100ML IV SCH (03:00)
[2019-02-22] MEDS: SODIUM CHLORIDE 0.9% 1000ML 1,000 ML IV SCH ×3 (03:00→21:16)
[2019-02-22 05:12] LABS: BASOPHILS % 0.4 % (0.0-1.0); EOSINOPHILS # (AUTO) 0.1 (0.0-0.4); EOSINOPHILS % 1.3 % (0.0-6.0); HEMATOCRIT 30.5 % (34.2-44.1); LYMPHOCYTES # (AUTO) 2.3 (1.0-3.2); LYMPHOCYTES % 27.9 % (18.0-39.1); MEAN CORPUSCULAR HGB CONC 32.8 g/dL (31-35); MEAN CORPUSCULAR VOLUME 82.4 fL (81-99); MONOCYTES # (AUTO) 0.7 (0.2-0.8); MONOCYTES % 8.8 % (4.4-11.3); NEUTROPHILS # (AUTO) 5.1 (2.1-6.9); NEUTROPHILS % 61.2 % (38.7-80.0); PLATELET COUNT 242 x10e3/uL (140-360); RED CELL DISTRIBUTION WIDTH 13.8 % (11.7-14.4)
[2019-02-22] MEDS: METRONIDAZOLE 500MG/NS 100ML IV SCH ×4 (05:31→23:47)
[2019-02-22 05:35] LABS: ALANINE AMINOTRANSFERASE 12 IU/L (0-55); ALBUMIN 2.7 g/dL (3.5-5.0); ALBUMIN/GLOBULIN RATIO 0.7 (0.8-2.0); ALKALINE PHOSPHATASE 67 IU/L (40-150); AMYLASE 51 U/L (25-125); BLOOD UREA NITROGEN 7 mg/dL (7-26); BUN/CREATININE RATIO 8 (6-25); CALCIUM 8.3 mg/dL (8.4-10.2); CARBON DIOXIDE 21 mmol/L (22-29); CHLORIDE 101 mmol/L (98-107); EST GLOMERULAR FILTRATION RATE > 60 ML/MIN (60-); GLUCOSE 108 mg/dL (74-118); LIPASE 15 U/L (8-78); SODIUM 130 mmol/L (136-145)
--- NOTE | 2019-02-22 07:12 | NUR ---
pt alert resp even and unlabored no c/o SOB at this time no distress noted, pt easily aroused, no c/o pain when asked,family member at bedside, call light in reach.
[2019-02-22] MEDS: HYDRALAZINE HCL 25 MG TAB PO SCH ×3 (08:32→21:15)
[2019-02-22] MEDS: PANTOPRAZOLE 40 MG 10ML VIAL IV SCH (08:33)
[2019-02-22] MEDS: INSULIN REGULAR, HUMAN 100 UNIT/1 ML 3ML VIAL SQ SCH ×4 (08:37→21:00)
--- NOTE | 2019-02-22 15:46 | Progress Note ---
DATE: Medicine Progress Note I am covering for Dr. Kris Clement. SUBJECTIVE: The patient was admitted for underlying diverticulitis, nausea and vomiting. She is currently doing much better. She is on full liquid diet. White count has improved. She is afebrile with no other complaints. PHYSICAL EXAMINATION: VITAL SIGNS: Temperature is 97.6, pulse 71, respirations 20, blood pressure 145/63, pulse ox 96% on room air. GENERAL: Not in acute distress. Alert and oriented x3. Cooperative on examination. HEENT: Head; normocephalic, atraumatic. Eyes; pupils are equal, round, and reactive to light bilaterally. Extraocular movements are intact bilaterally. Throat; no evidence of erythema or exudates in the posterior pharynx. Has poor dentition. NECK: Supple. Good range of motion. PULMONARY: Clear to auscultation bilaterally. No wheezing, no rales, no rhonchi, no crackles appreciated. CARDIOVASCULAR: Positive S1 and S2. No murmurs, rubs, or gallops appreciated. ABDOMEN: Soft, nondistended, and nontender to palpation. Bowel sounds present. MUSCULOSKELETAL: Strength is 5/5 throughout. No evidence of any muscle deficits on examination. No weakness appreciated. NEUROLOGIC: Cranial nerves II through XII grossly intact. No evidence of any neurological deficits on exam. SKIN: Intact. Warm to touch. Good cap refill. PSYCHIATRIC: Normal affect and mood. EXTREMITIES: No edema. Good range of motion throughout. LABORATORY FINDINGS: Show white count was 8.2, hemoglobin 10, hematocrit 31, platelets of 242. Chemistry; sodium 130, potassium 4, chloride 101, bicarb 21, anion gap of 12, BUN 7, creatinine 0.7, glucose is 108, calcium is 8.3. LFTs within normal range. Albumin was 2.7. Amylase is 51, lipase is 15. Urinalysis noted. MICROBIOLOGY: None. IMAGING DATA: CT abdomen and pelvis shows acute sigmoid diverticulitis with mild inflammatory changes. No evidence of perforation or abscess. There is mild wall thickening within a short segment of jejunal loops, could represent focal enteritis. Possible small jejunojejunal intussusception. IMPRESSION: 1. Acute diverticulitis. 2. Acute pancreatitis-resolved. 3. Acute kidney injury secondary to dehydration. 4. Type 2 diabetes. 5. Mild hyponatremia. PLAN: At this time, diet has been advanced to full liquids. Continue advancement to regular diet if tolerated. Continue with IV antibiotics. GI was consulted for evaluation and treatment. Decrease IV fluids to 75 mL/h. Lipase level is back to normal. Get repeat labs in the morning. Await final recommendations by GI. Put on Lovenox for DVT prophylaxis. MD GURU Recio/MANJINDER /[id number]
[2019-02-22] MEDS ORDERED: ENOXAPARIN 30 MG/0.3 ML SYR SC SCH (17:00)
--- NOTE | 2019-02-22 19:43 | NUR ---
Report given to oncoming nurse. pt stable at this time.
--- NOTE | 2019-02-22 21:15 | NUR ---
PATIENT IS RESTING IN BED BOTH EYES CLOSED, NO SIGNS OF DISTRESS NOTED. FLUIDS AND ANTIBIOTICS ARE RUNNING AT ORDERED RATE, AND PATIENT VOICES NO PAIN AT THIS TIME. BED IS IN LOW POSITION, BOTH SIDE RAILS ARE UP, CALL LIGHT WITHIN EASY REACH, WILL CONTINUE TO MONITOR.
[2019-02-23 00:31] VITALS: BP 141/66
[2019-02-23] MEDS: LEVOFLOXACIN 500MG/D5W 100ML IV SCH (03:20)
[2019-02-23 04:00] VITALS: BP 168/73
[2019-02-23 05:33] LABS: BASOPHILS % 0.4 % (0.0-1.0); EOSINOPHILS # (AUTO) 0.1 (0.0-0.4); EOSINOPHILS % 1.2 % (0.0-6.0); HEMATOCRIT 30.4 % (34.2-44.1); HEMOGLOBIN 9.9 g/dL (12.0-16.0); LYMPHOCYTES # (AUTO) 2.2 (1.0-3.2); LYMPHOCYTES % 28.8 % (18.0-39.1); MEAN CORPUSCULAR HEMOGLOBIN 26.7 pg (28-32); MEAN CORPUSCULAR HGB CONC 32.6 g/dL (31-35); MEAN CORPUSCULAR VOLUME 81.9 fL (81-99); MONOCYTES # (AUTO) 0.6 (0.2-0.8); MONOCYTES % 8.1 % (4.4-11.3); NEUTROPHILS # (AUTO) 4.6 (2.1-6.9); PLATELET COUNT 246 x10e3/uL (140-360); RED BLOOD COUNT 3.71 x10e6/uL (3.6-5.1); RED CELL DISTRIBUTION WIDTH 13.9 % (11.7-14.4)
[2019-02-23 05:56] LABS: ANION GAP 10.8 mmol/L (8-16); BLOOD UREA NITROGEN 7 mg/dL (7-26); BUN/CREATININE RATIO 8 (6-25); CALCIUM 8.4 mg/dL (8.4-10.2); CARBON DIOXIDE 21 mmol/L (22-29); CHLORIDE 102 mmol/L (98-107); CREATININE, SERUM 0.85 mg/dL (0.57-1.11); EST GLOMERULAR FILTRATION RATE > 60 ML/MIN (60-); GLUCOSE 155 mg/dL (74-118); POTASSIUM 3.8 mmol/L (3.5-5.1); SODIUM 130 mmol/L (136-145)
[2019-02-23] MEDS: METRONIDAZOLE 500MG/NS 100ML IV SCH ×2 (06:52→13:15)
--- NOTE | 2019-02-23 06:55 | NUR ---
Received patient lying in bed with eyes open. Denies pain at this time. Respiration even and unlabored without SOB. Call light in reach.
[2019-02-23] MEDS: INSULIN REGULAR, HUMAN 100 UNIT/1 ML 3ML VIAL SQ SCH ×2 (08:15→11:56)
[2019-02-23 08:25] VITALS: BP 184/77
[2019-02-23 08:52] VITALS: BP 184/77
[2019-02-23] MEDS: HYDRALAZINE HCL 25 MG TAB PO SCH ×2 (09:11→14:49)
[2019-02-23] MEDS: PANTOPRAZOLE 40 MG 10ML VIAL IV SCH (09:11)
[2019-02-23] MEDS: SODIUM CHLORIDE 0.9% 1000ML 1,000 ML IV SCH (09:17)
[2019-02-23 12:02] VITALS: BP 171/75
[2019-02-23] MEDS ORDERED: LISINOPRIL 20 MG TAB PO NR (14:30)
--- NOTE | 2019-02-23 15:20 | NUR ---
Transported patient to private vehicle via wheelchair at this time. All personal belongings are carried by the daughter.
[2019-02-23 16:34] VITALS: BP 154/65
--- NOTE | 2019-02-23 17:13 | NUR ---
Nutrition Screen Note RD Recommendation for Physician: Continue diet as ordered Plan of Care: RD following, monitoring for tolerance and adequacy Nutrition reason for involvement: Nutrition Risk Trigger - MST Primary Diagnose(s): Diverticulitis, Pancreatitis, COPD PMH: T2DM Ht: 60in Wt:191lb BMI:37.3 kg/m2 IBW:100lb +/-10% RD Assessment: (02/23/2019) Chart reviewed. Labs and meds reviewed. Initial encounter with patient. Pt is well known. Pt is eating well and denies any N,V,D nor has any difficulty chewing or swallowing. No wt changes. Current Diet: ADA Malnutrition Evaluation (02/23/2019) The patient does not meet criteria for a specified degree of malnutrition at this time. Will re-evaluate at follow-up as appropriate. Diet Education Needs Assessment: Diet education not indicated. Nutrition Care Level: Low Signed: Kevin Anders RD, LD, [facility]
--- NOTE | 2019-02-23 17:44 | NUR ---
PIV to left FA discontinued, catheter tip intact, no bleeding noted. Patient is to be discharge to home today.
--- NOTE | 2019-02-24 11:44 | Discharge Summary ---
FINAL DISCHARGE DIAGNOSES: 1. Acute diverticulitis. 2. Acute pancreatitis, resolved. 3. Acute kidney injury secondary to dehydration, resolved. 4. Type 2 diabetes. 5. Mild hyponatremia, resolved. HEALTH MANAGEMENT CONSULTANT: FUENTES. PHYSICAL EXAMINATION: VITAL SIGNS: Temperature is 97.3, pulse 85, respiratory rate is 18, blood pressure stable, and oxygen saturation 98% on room air. LABORATORY FINDINGS: Show white count 7.5, hemoglobin 9.9, hematocrit 30, and platelets of 246. Chemistry; sodium 130, potassium 3.8, chloride 102, bicarb 21, anion gap of 10, BUN is 7, creatinine is 0.85, glucose 155, calcium is 8.4, LDL is 86, and lipase is now 50. Urinalysis, seemed cloudy, leukocyte esterase trace, wbc's 6-10, some moderate bacteria. Microbiology, none was sent. IMAGING STUDIES: CT of the abdomen and pelvis show acute sigmoid diverticulitis with mild inflammatory changes, no evidence of perforation or abscess. There is mild wall thickening within short segment of jejunal loop, could represent focal enteritis. They comment there is a jejunojejunal intussusception. I discussed this with GI and it is also written in his note that the patient can be discharged with outpatient follow with small bowel follow-through at a later date as currently she is asymptomatic and has no issues. HOSPITAL COURSE: This lady is a 73-year-old female, who came into the ED with complaints of abdominal pain, nausea, and decreased oral intake. CT imaging was consistent with acute sigmoid diverticulitis. She was also found to have mild elevation of lipase level, being treated for acute pancreatitis. She was also dehydrated and being treated for acute kidney injury. At this time, GI was consulted for further management and care. Recommended IV antibiotic therapy, clear liquids, advance to regular food when she tolerates it well. As her lipase level is back to normal, she does need a full workup as an outpatient in terms of having a colonoscopy and an EGD for further management and care, post diverticulitis treatment. She also had a questionable small jejunojejunal intussusception, but according to GI, this is less likely and the patient is asymptomatic and recommends outpatient SBS (small bowel series) at a later date as an outpatient in his office. She was advised to follow up in his office in 1-2 weeks' time. On discharge, the patient was doing well with no other complaints. On the day of discharge, vital signs were stable, labs reviewed and stable. The patient is seen and evaluated, examined thoroughly on the day of discharge, no other complaints. The patient verbalized understanding and agrees with plan of care to follow up accordingly as an outpatient with primary care physician in 1 week and GI specialist in 1-2 weeks' time. MEDICATIONS: See med reconciliation form including Flagyl and Levaquin for 10 more days and lisinopril was increased to 20 mg b.i.d. DISPOSITION: Home. CONDITION: Stable. DIET: Heart-healthy. In the event of any worsening symptoms, the patient was advised to come back to the ED for further evaluation. Discharge summary took greater than 35 minutes. MD GURU Recio/MANJINDER /[id number]
== END 2019-02-23 17:47 | disposition home or self-care (01) | DRG 391 ==
LOC: ER 23:33 → ERHOLD 02-21 02:25 → MED/SURG2 02-21 03:12
PROVIDERS: ADMIT Internal Medicine; ATTEND Internal Medicine
DX: K57.32 Diverticulitis of large intestine without perforation or abscess without bleeding (principal); K85.90 Acute pancreatitis without necrosis or infection, unspecified; E87.1 Hypo-osmolality and hyponatremia; N39.0 Urinary tract infection, site not specified; N17.9 Acute kidney failure, unspecified; E11.9 Type 2 diabetes mellitus without complications; Z68.35 Body mass index [BMI] 35.0-35.9, adult; E86.0 Dehydration; Z79.4 Long term (current) use of insulin
CPT/HCPCS: 36415; 74177; 80048; 80053; 80061; 81001; 82150; 82948; 83036; 83690; 85025; 99284; J1650; J1956; J2405; J7030; Q9967

== ENCOUNTER 2019-06-07 12:31 | Observation (INO) | payer MEDICARE ==
[~2019-06-07] VITALS: Ht 152.4 cm; Wt 86.6 kg
[~2019-06-07 12:31] MED LIST changes: +TRAZODONE HCL50 MG PO
[2019-06-07] MEDS ORDERED: SODIUM CHLORIDE 0.9% 1000ML 1,000 ML IV STA (13:07)
[2019-06-07 14:46] LABS: BASOPHILS % 0.1 % (0.0-1.0); EOSINOPHILS % 0.1 % (0.0-6.0); HEMATOCRIT 38.1 % (34.2-44.1); HEMOGLOBIN 12.2 g/dL (12.0-16.0); LYMPHOCYTES # (AUTO) 1.5 (1.0-3.2); LYMPHOCYTES % 10.5 % (18.0-39.1); MEAN CORPUSCULAR HEMOGLOBIN 26.9 pg (28-32); MEAN CORPUSCULAR VOLUME 83.9 fL (81-99); MONOCYTES # (AUTO) 0.8 (0.2-0.8); MONOCYTES % 5.7 % (4.4-11.3); NEUTROPHILS # (AUTO) 11.5 (2.1-6.9); NEUTROPHILS % 83.1 % (38.7-80.0); PLATELET COUNT 253 x10e3/uL (140-360); RED BLOOD COUNT 4.54 x10e6/uL (3.6-5.1); RED CELL DISTRIBUTION WIDTH 14.2 % (11.7-14.4)
--- NOTE | 2019-06-07 14:52 | Diagnostic Imaging Report ---
EXAMINATION: CHEST 2 VIEWS INDICATION: Chest pain COMPARISON: None FINDINGS: LINES/TUBES:None LUNGS:The lungs are well-inflated. No focal consolidation or pulmonary edema. PLEURA:No pleural effusion or pneumothorax. MEDIASTINUM:The cardiomediastinal silhouette appears normal in size and shape. Atherosclerotic calcifications of the thoracic aorta. BONES/SOFT TISSUES:No acute osseous injury. ABDOMEN:No free air under the diaphragm. IMPRESSION: No focal pneumonia or pulmonary edema. Signed by: Maira Elkins MD on 06/07/2019 2:49 PM
[2019-06-07 14:54] LABS: ALBUMIN 3.4 g/dL (3.5-5.0); ALBUMIN/GLOBULIN RATIO 0.7 (0.8-2.0); ANION GAP 10.9 mmol/L (8-16); CALCIUM 9.4 mg/dL (8.4-10.2); CREATININE, SERUM 1.3 mg/dL (0.57-1.11); POTASSIUM 4.9 mmol/L (3.5-5.1)
[2019-06-07 15:00] LABS: CREATINE KINASE MB 0.7 ng/mL (0-5.0)
--- NOTE | 2019-06-07 15:03 | Diagnostic Imaging Report ---
Examination: CT head without contrast Clinical Indication: Weakness. Technique: Transaxial noncontrast images from the skull base through the vertex were obtained. Sagittal and coronal reformatted images were done. Dose modulation, iterative reconstruction, and/or weight based adjustment of the mA/kV was utilized to reduce the radiation dose to as low as reasonably achievable. Comparison: Head CT performed September 03, 1999. Findings: Scalp: No abnormalities. Bones: Intact. No fractures. No blastic or lytic lesions. Brain sulci: Mild volume loss for patient's age. Ventricles: No hydrocephalus. . Extra-axial space: No abnormalities. Parenchyma: Again demonstrated are patchy and confluent areas of low-attenuation within subcortical and periventricular white matter, nonspecific, but could represent microvascular ischemic disease. No masses, hemorrhage, or acute or chronic cortical based vascular insults. Suprasellar region: No abnormalities. Craniocervical junction: The foramen magnum is patent. No Chiari one malformation. Incidental findings: Atherosclerotic calcification of the cavernous and supraclinoid internal carotid arteries. Unchanged sphenoid sinusitis. Impression: 1. No acute intracranial finding. No change from prior head CT dated 09/02/2018. 2. Unchanged chronic microvascular ischemic change and volume loss. Signed by: Dr. Comfort Fitzgerald M.D. on 06/07/2019 3:00 PM
[2019-06-07 15:54] LABS: CLARITY,URINE HAZY (CLEAR); COLOR,URINE YELLOW (YELLOW)
[2019-06-07 15:55] LABS: BILIRUBIN,URINE NEGATIVE (NEGATIVE); KETONES,URINE 1+ (NEGATIVE); LEUKOCYTE ESTERASE ,URINE TRACE (NEGATIVE); NITRITE,URINE POSITIVE (NEGATIVE); PROTEIN,URINE DIPSTICK 1+ (NEGATIVE); URINE UROBILINOGEN 0.2 mg/dL (0.2 - 1)
[2019-06-07 16:10] LABS: BACTERIA,URINE MANY /HPF; WBC,URINE (MAN) 0-5 /HPF (0-5)
[2019-06-07] MEDS ORDERED: SODIUM CHLORIDE FLUSH 10 ML SYR INJ PRN (16:15)
[2019-06-07 19:15] VITALS: BP 157/69
--- NOTE | 2019-06-07 19:20 | NUR ---
patient is a new admit that arrived from the ER. patient is awake and talking. patient has been assisted into the bed. bed is in the lowest position and call light is within reach. will continue to monitor patient.
[2019-06-07 20:00] VITALS: BP 157/69
[2019-06-07] MEDS: SODIUM CHLORIDE 0.9% 1000ML 1,000 ML IV SCH (21:02)
[2019-06-07] MEDS ORDERED: ACETAMINOPHEN 325 MG TAB PO PRN (21:15)
[2019-06-07] MEDS ORDERED: DEXTROSE 50% SYRINGE 50 ML IV PRN (21:15)
--- NOTE | 2019-06-07 22:00 | Consultation ---
DATE OF CONSULTATION: 06/07/2019 Cardiology Consultation. REQUESTING PHYSICIAN: Dr. Kris Clement MD REASON FOR CONSULTATION: Dizziness and left bundle-branch block. HISTORY OF PRESENT ILLNESS: This is a 73-year-old women with history of hypertension, diabetes mellitus, and chronic bronchitis who presents with complaints of dizziness. The patient reports that she had been fasting in preparation for her physician appointment this morning. She was taking a shower when she began to feel dizzy and leaned against the side of the shower. She was unable to support her way and slid down to the ground. She denied any loss of consciousness, denies any vision changes, chest pain or palpitations. She denies any edema, orthopnea, PND, or shortness of breath. REVIEW OF SYSTEMS: Negative except as per HPI. PAST MEDICAL HISTORY: 1. Hypertension. 2. Diabetes mellitus. 3. Chronic bronchitis. PAST SURGICAL HISTORY: 1. Cholecystectomy. 2. section. ALLERGIES: ASPIRIN. MEDICATIONS: Please see medication list. SOCIAL HISTORY: Denies tobacco, alcohol, or illicit drugs. FAMILY HISTORY: Brother with coronary artery disease with angioplasty per description. PHYSICAL EXAMINATION: VITAL SIGNS: Temperature 97.8 degrees, pulse 87, respiratory rate 16, blood pressure 148/62, oxygen saturation 98%. GENERAL: Well-developed, well-nourished woman, in no acute distress. Obese. HEENT: Normocephalic, atraumatic. Pupils equal. No scleral icterus. NECK: Supple. No thyromegaly or cervical lymphadenopathy. No carotid bruits. LUNGS: Clear to auscultation bilaterally. No wheezes or crackles. CARDIOVASCULAR: Normal rate. Regular rhythm. No murmur. Normal S1, S2. ABDOMEN: Soft, nontender. EXTREMITIES: No edema. NEUROLOGIC: Nonfocal exam. LABORATORY DATA: WBC 13.79, hemoglobin 12.2, hematocrit 38.1, platelets 253. Sodium 132, potassium 4.9, chloride 99, CO2 27, BUN 14, and creatinine 1.3. EKG, sinus rhythm with sinus arrhythmia, left bundle-branch block. Chest x-ray, no focal pneumonia or pulmonary edema. IMPRESSION: 1. Dizziness. 2. Left bundle-branch block. 3. Hypertension. 4. Diabetes mellitus. RECOMMENDATIONS: Check orthostatic vitals. Monitor the patient on telemetry. Obtain echocardiogram. Trend cardiac enzymes to rule out myocardial infarction. The patient will need ischemic evaluation given her left bundle-branch block, but this can be done as an outpatient if the above testing is unremarkable. Thank you for this consult. We will continue to follow. Akilah Mitchell MD ABS/MODL /[id number]
[2019-06-07] MEDS: CEFTRIAXONE SOD 1 GM/NS 50 ML 50 ML IV SCH (22:01)
[2019-06-08] VITALS (8 sets, daily range): BP systolic 114–146; BP diastolic 53–63
[2019-06-08 00:27] LABS: CREATINE KINASE MB 0.6 ng/mL (0-5.0)
[2019-06-08] MEDS: SODIUM CHLORIDE 0.9% 1000ML 1,000 ML IV SCH ×2 (05:09→15:20)
[2019-06-08 05:38] LABS: BASOPHILS % 0.2 % (0.0-1.0); EOSINOPHILS # (AUTO) 0.1 (0.0-0.4); EOSINOPHILS % 1.1 % (0.0-6.0); HEMATOCRIT 33.1 % (34.2-44.1); HEMOGLOBIN 10.5 g/dL (12.0-16.0); LYMPHOCYTES % 30.2 % (18.0-39.1); MEAN CORPUSCULAR HGB CONC 31.7 g/dL (31-35); MEAN CORPUSCULAR VOLUME 85.1 fL (81-99); MONOCYTES % 10.3 % (4.4-11.3); NEUTROPHILS # (AUTO) 5.8 (2.1-6.9); NEUTROPHILS % 57.9 % (38.7-80.0); PLATELET COUNT 239 x10e3/uL (140-360); RED BLOOD COUNT 3.89 x10e6/uL (3.6-5.1); RED CELL DISTRIBUTION WIDTH 14.3 % (11.7-14.4)
[2019-06-08 05:56] LABS: ALANINE AMINOTRANSFERASE 14 IU/L (0-55); ALBUMIN 2.7 g/dL (3.5-5.0); ALBUMIN/GLOBULIN RATIO 0.7 (0.8-2.0); ALKALINE PHOSPHATASE 93 IU/L (40-150); ANION GAP 7.1 mmol/L (8-16); BLOOD UREA NITROGEN 11 mg/dL (7-26); BUN/CREATININE RATIO 12 (6-25); CALCIUM 8.5 mg/dL (8.4-10.2); CARBON DIOXIDE 25 mmol/L (22-29); CHLORIDE 105 mmol/L (98-107); CREATININE, SERUM 0.91 mg/dL (0.57-1.11); EST GLOMERULAR FILTRATION RATE > 60 ML/MIN (60-); GLUCOSE 130 mg/dL (74-118); POTASSIUM 4.1 mmol/L (3.5-5.1); SODIUM 133 mmol/L (136-145)
--- NOTE | 2019-06-08 07:18 | NUR ---
report given to day nurse. patient is resting comfortably in bed. bed is in lowest position and call light is within reach.
[2019-06-08] MEDS: INSULIN REGULAR, HUMAN 100 UNIT/1 ML 3ML VIAL SQ SCH ×4 (07:30→21:00)
[2019-06-08 07:48] LABS: CREATINE KINASE MB 0.8 ng/mL (0-5.0)
[2019-06-08] MEDS ORDERED: LISINOPRIL 20 MG TAB PO SCH (09:00)
[2019-06-08] MEDS: HYDRALAZINE HCL 25 MG TAB PO SCH ×3 (10:01→21:29)
--- NOTE | 2019-06-08 10:46 | NUR ---
H&P cc; abdominal pain HPI: 73yoF, PCP , developed fatigue and almost passed out, found to have LBBB. PMH: diverticulosis, DM2, acute pancreatitis, UTI with pseudomonas, PELON, diverticulitis, hyponatremia, HTN, gait dysfunction using walker. PShx; unknown allergies; see emr fh/SH: no illicits/etoh; . meds; see MAR ROS: no cp/sob/NELSON/vision changes/skin rash/back pain v/s; revd PE tired appearing anicteric ns1s2 mod bs soft nd; skin dry n. affect a&ox3 kelley labs/meds; revd A/P: 73yoF Presyncope- echo and U/S carotids normal; PT eval Malaise/Fatigue- f/u carotid; PT consult. LBBB- ischemic w-up outpt PELON-ivf UTI- iv abx DM2- check hba1c/Lipids Abnormal gait- uses walker; PT consult Morbid obesity- caloric restriction important BMI 37.3 Prop: lovenox DIspo: reduce fluids; d/c planning; Kris Clement MD, Phd.
[2019-06-08] MEDS ORDERED: ENOXAPARIN SOD INJ 40 MG/0.4 ML SYR SC SCH (17:00)
--- NOTE | 2019-06-08 18:47 | NUR ---
patient ambulating to restroom with walker, no distress noted, Dr Clement had rounds , no new orders
--- NOTE | 2019-06-08 19:28 | Progress Note ---
DATE: 06/08/2019 Cardiology Progress Note SUBJECTIVE: The patient denies chest pain or shortness of breath. She denies any further dizziness. OBJECTIVE: VITAL SIGNS: Temperature 98.4 degrees, pulse 75, respiratory rate 18, blood pressure 130/59, and oxygen saturation 98% on room air. GENERAL: Awake, alert, in no acute distress. LUNGS: Clear to auscultation bilaterally. No wheezes or crackles. CARDIOVASCULAR: Normal rate, regular rhythm. No murmur. Normal S1, S2. ABDOMEN: Soft, nontender. EXTREMITIES: No edema. CARDIAC MEDICATIONS: None. LABORATORY DATA: WBC 10.08, hemoglobin 10.5, hematocrit 33.1, platelets 239. Sodium 133, potassium 4.1, chloride 105, CO2 of 25, BUN 11, creatinine 0.91. Telemetry was personally reviewed and interpreted revealing normal sinus rhythm. IMPRESSION: 1. Dizziness. 2. Left bundle-branch block. 3. Hypertension. 4. Diabetes mellitus. RECOMMENDATIONS: Monitor the patient on telemetry. No arrhythmias have been seen thus far. No evidence of myocardial infarction. Echocardiogram with normal LV systolic function. Carotid Doppler without hemodynamically significant stenosis. She will require ischemic evaluation for her left bundle-branch block, but this can be done as an outpatient. The patient is to be otherwise discharged. Thank you for this consult. We will continue to follow. Akilah Mitchell MD ABS/MODL /[id number]
--- NOTE | 2019-06-08 19:40 | NUR ---
RECEIVED REPORT FROM DAY NURSE. PATIENT IS RESTING COMFORTABLY IN BED. BED IS IN LOWEST POSITION AND CALL LIGHT IS WITHIN REACH. WILL CONTINUE TO MONITOR PATIENT.
[2019-06-08] MEDS: CEFTRIAXONE SOD 1 GM/NS 50 ML 50 ML IV SCH (21:29)
[2019-06-09] VITALS: BP 155/70
[2019-06-09 04:00] VITALS: BP 158/71
[2019-06-09] MEDS ORDERED: KEFLEX500 MG PO (04:34)
--- NOTE | 2019-06-09 04:36 | NUR ---
D/C summary Principal Dx: Presyncope- echo and U/S carotids normal; PT eval Malaise/Fatigue- f/u carotid; PT consult. LBBB- ischemic w-up outpt PELON-ivf UTI- iv abx Secondary dx: DM2- check hba1c/Lipids Abnormal gait- uses walker; PT consult Morbid obesity- caloric restriction important BMI 37.3 Prop: lovenox DIspo: reduce fluids; d/c planning; d/c home with PT f/u pcp 1 week and 2-4 days stable d/c>35mins Kris Clement MD, Phd.
[2019-06-09] MEDS: SODIUM CHLORIDE 0.9% 1000ML 1,000 ML IV SCH ×2 (06:00→08:55)
--- NOTE | 2019-06-09 07:01 | NUR ---
REPORT GIVEN TO DAY NURSE. PATIENT IS RESTING COMFORTABLY IN BED. BED IS IN LOWEST POSITION AND CALL LIGHT IS WITHIN REACH.
[2019-06-09] MEDS: INSULIN REGULAR, HUMAN 100 UNIT/1 ML 3ML VIAL SQ SCH ×2 (07:30→11:30)
--- NOTE | 2019-06-09 07:30 | NUR ---
Received patient, a/ox3, no distress, OOB on chair, call light within reach, no distress, will monitor.
[2019-06-09 07:56] VITALS: BP 132/59
[2019-06-09] MEDS: HYDRALAZINE HCL 25 MG TAB PO SCH (08:36)
[2019-06-09 08:38] VITALS: BP 132/59
--- NOTE | 2019-06-09 10:25 | NUR ---
ORDERS REC'D FOR HOME HEALTH SKILLED NURSE AND PT/OT MET WITH PT AND GAVE HER LIST OF 3 HOME HEALTH COMPANIES IN NETWORK WITH [facility] PH: [phone] FAX: [phone] COPY OF CHOICE LETTER WITH PHONE NUMBER FOR [facility] AND MY BUSINESS CARD GIVEN TO PT FAXED CLINICALS TO ABOVE NUMBER; CONFIRMATION REC'D VERIFIED WITH PT ADDRESS AND PHONE NUMBER ARE CORRECT
[2019-06-09 11:38] VITALS: BP 141/66
--- NOTE | 2019-06-09 12:01 | NUR ---
Patient a/ox3, cleared for discharge, provided with discharge summary and prescriptions provided, contacts provided for f/u appointment. IV line removed, cath tip in place, dressing applied, home health set up by CM and confirmed.
== END 2019-06-09 12:05 | disposition home or self-care (01) ==
LOC: ER 12:31 → ERHOLD 16:05 → MED/SURG2 18:37
PROVIDERS: ADMIT Internal Medicine; ATTEND Internal Medicine
DX: R42 Dizziness and giddiness (principal); I44.7 Left bundle-branch block, unspecified; R55 Syncope and collapse; N28.9 Disorder of kidney and ureter, unspecified; N30.01 Acute cystitis with hematuria; Z88.8 Allergy status to other drugs, medicaments and biological substances; I10 Essential (primary) hypertension; E11.9 Type 2 diabetes mellitus without complications; J42 Unspecified chronic bronchitis; Z90.49 Acquired absence of other specified parts of digestive tract; N17.9 Acute kidney failure, unspecified; R26.9 Unspecified abnormalities of gait and mobility; E66.01 Morbid (severe) obesity due to excess calories; Z68.37 Body mass index [BMI] 37.0-37.9, adult; Z79.84 Long term (current) use of oral hypoglycemic drugs
CPT/HCPCS: 36415 ×3; 70450; 71046; 80053 ×2; 81001; 82550 ×2; 82553 ×2; 82948 ×3; 83880; 84484 ×2; 85025 ×2; 87040; 93005; 93306; 93880; 97116; 97162; 97530; 99284; G0378 ×3; J0696 ×2; J1650; J1817; J7030 ×2

== ENCOUNTER 2019-12-30 06:18 | Emergency (ER) | payer MEDICARE ==
[~2019-12-30] VITALS: Ht 152.4 cm; Wt 86.6 kg
[2019-12-30] MEDS ORDERED: SODIUM CHLORIDE 0.9% 1000ML 1,000 ML IV STA (06:21)
--- NOTE | 2019-12-30 06:25 | Emergency Department Note ---
History of Present Illnes History of Present Illness History of Present Illness This is a 74 year old female presents to the ED for one day h/o weakness. Denies myalgias, CP, Fevers, dyspnea or cough . Historian: Patient Arrival Mode: Car Onset (how long ago): day(s) (1) Severity: moderate Duration (how long): day(s) (1) Progression: worsening Chronicity: new Context: Denies recent illness, Denies recent surgery, Denies recent immobilization, Denies recent travel, Denies trauma/injury, Denies new medications, Denies hx of DVT/PE, Denies non-compliance w/ medications, Denies other Relieving factors: none Exacerbating factors: none Associated symptoms: Reports weakness (LO WADE DO) History of Present Illness ALSO DIZZINESS (COLLEEN MASTERS MD) Past Medical/Family History Physician Review I have reviewed the patient's past medical and family history. Any updates have been documented here. (LO WADE DO) Past Medical History Recent Fever: No Clinical Suspicion of Infectio: No New/Unexplained Change in Ment: No Past Medical History: Hypertension, Diabetes, Hyperlipedemia Other Medical History: DIVERTICULITIS GOUT PANCREATITIS Past Surgical History: Cholecysctectomy, Tubal Ligation, Other Surgery: C-SECTIONS (LO WADE DO) Social History Smoking Cessation: Never Smoker Alcohol Use: None Any Illegal Drug Use: No (LO WADE DO) Other Last Tetanus: UTD (LO WADE DO) Review of Systems Review of Systems Constitutional: Reports weakness EENTM: Reports no symptoms Cardiovascular: Denies chest pain Respiratory: Denies dyspnea Gastrointestinal: Reports no symptoms Genitourinary: Reports no symptoms Musculoskeletal: Reports no symptoms Integumentary: Reports no symptoms Neurological: Reports no symptoms Psychological: Reports no symptoms Endocrine: Reports no symptoms Hematological/Lymphatic: Reports no symptoms (LO WADE DO) Constitutional: Reports as per HPI EENTM: Reports no symptoms Cardiovascular: Reports no symptoms Respiratory: Reports no symptoms Gastrointestinal: Reports no symptoms Genitourinary: Reports no symptoms Musculoskeletal: Reports no symptoms Integumentary: Reports no symptoms Neurological: Reports as per HPI Psychological: Reports no symptoms Endocrine: Reports no symptoms Hematological/Lymphatic: Reports no symptoms (COLLEEN MASTERS MD) Physical Exam Related Data Allergies: Coded Allergies: aspirin (Verified Allergy, Severe, 12/30/19) RASH caffeine (Verified Allergy, Severe, 12/30/19) RASH Vital signs reviewed: Yes (LO WADE DO) Vital signs reviewed: Yes (COLLEEN MASTERS MD) Physical Exam CONSTITUTIONAL Constitutional: Present ill appearing HENT EYES NECK PULMONARY CARDIOVASCULAR Cardiovascular: Present heart sounds normal, Present tachycardia GASTROINTESTINAL GENITOURINARY SKIN MUSCULOSKELETAL NEUROLOGICAL PSYCHOLOGICAL (LO WADE DO) Constitutional: Present well-developed, Present well-nourished HENT: Present normocephalic, Present atraumatic, Present oropharynx clear/moist, Present nose normal HENT L/R: Present left ext ear normal, Present right ext ear normal Eyes: Reports PERRL, Reports conjunctivae normal Neck: Present ROM normal, Present supple; Absent thyromegaly, Absent tracheal deviation, Absent stridor, Absent JVD, Absent cervical adenopathy, Absent carotid bruit, Absent other Pulmonary: Present effort normal, Present breath sounds normal; Absent respiratory distress, Absent rales, Absent rhonchi, Absent chest tenderness, Absent other Cardiovascular: Present regular rhythm, Present heart sounds normal, Present capillary refill normal, Present normal rate; Absent irregular rhythm, Absent intact distal pulses, Absent tachycardia, Absent bradycardia, Absent murmur, Absent gallop, Absent friction rub, Absent palpable pulses, Absent strong pulses, Absent weak pulses, Absent LLE edema, Absent RLE edema, Absent other Abdominal: Present soft, Present nontender, Present bowel sounds normal; Absent distension, Absent tender, Absent guarding, Absent mass, Absent rebound, Absent hernia, Absent left CVA tenderness, Absent right CVA tenderness, Absent other Genitourinary: Present exam deferred Skin: Present warm, Present dry; Absent erythema, Absent pale, Absent rash, Absent jaundiced, Absent bruising, Absent lesion, Absent other Musculoskeletal: Present ROM normal Neurological: Present alert, Present oriented x 3, Present no gross motor or sensory deficits Psychological: Present mood/affect normal, Present judgement normal (COLLEEN MASTERS MD) Results Laboratory Lab results reviewed: Yes (COLLEEN MASTERS MD) Imaging Imaging results reviewed: Yes (COLLEEN MASTERS MD) Procedures 12 Lead ECG Interpretation ECG Interpretation : ECG: ECG 1 Propagator: Interpreted by ED physician Date: Dec 30, 2019 Time: 06:44 Prior ECG tracings: reviewed Rhythm: sinus rhythm Rate: normal BPM: 92 QRS axis: normal Conduction: left bundle branch block ST segments normal: Yes T waves normal: Yes Clinical Impression: abnormal ECG (LO WADE DO) ECG Interpretation : ECG: ECG 1 Propagator: Interpreted by ED physician (COLLEEN MASTERS MD) Assessment & Plan Medical Decision Making MDM Diff Dx : Sepsis, COVID -19 uri, PNA, UTI, ACS, CVA (LO WADE DO) Reassessment Reassessment time: 10:13 Reassessment BETTER, WANTS TO GOHOME, DISCUSSED WITH THE PATIENT ALL THE RISKA (COLLEEN MASTERS MD) Assessment & Plan Final Impression: (1) Dizziness (2) LBBB (left bundle branch block) (COLLEEN MASTERS MD) Depart Disposition: HOME, SELF-[facility] Meds Active Scripts Cephalexin Monohydrate (KEFLEX) 500 Mg Capsule, 500 MG PO Q12H, #10 Prov:AMAIRANI CHANCE MD 06/09/19 Hydralazine Hcl (HYDRALAZINE HCL) 25 Mg Tab, 50 MG PO TID for 30 Days, TAB Prov:AMAIRANI CHANCE MD 09/01/18 Famotidine (FAMOTIDINE) 20 Mg Tab, 20 MG PO BIDAC for 30 Days, TAB Prov:AMAIRANI CHANCE MD 09/01/18 Reported Medications Trazodone Hcl (TRAZODONE HCL) 50 Mg Tablet, 50 MG PO HS, #30 TAB 02/21/19 Insulin Human Nph (HUMULIN N) 100 Units/Ml Ml, 70 UNITS SQ DAILY 08/27/18 Insulin Human Nph (HUMULIN N) 100 Units/Ml Ml, 50 UNITS SQ HS 08/27/18 Glimepiride (GLIMEPIRIDE) 4 Mg Tablet, 4 MG PO DAILY 08/27/18 Benzonatate (BENZONATATE) 100 Mg Capsule, 100 MG PO Q12H PRN for COUGH 08/27/18 Atorvastatin Calcium (ATORVASTATIN CALCIUM) 40 Mg Tablet, 40 MG PO HS, #30 TAB 08/27/18 Metformin Hcl (METFORMIN HCL) 1,000 Mg Tablet, 1000 MG PO BID 01/28/12 Lisinopril (LISINOPRIL) 5 Mg Tablet, 20 MG PO BID 01/28/12 Medications in the ED Sodium Chloride 1,000 ml @ 0 mls/hr Q0M STAT IV ; Start 12/30/19 at 06:21; Stop 12/30/19 at 06:23; Status DC (LO WADE DO) LO WADE DO Dec 30, 2019 06:25 COLLEEN MASTERS MD Dec 30, 2019 10:14
--- OUTSIDE RECORDS SUMMARY | 2019-12-30 06:36 | XMS REPORT | Clinical Summary ---
Author Author [facility] Organization [facility] Address Unknown Phone Unavailable Care Team Providers Care Sterile Tech Name Role Phone Sabra Foley MD PCP Pcp, No PCP Unavailable Allergies No Known Allergies Medications End Date Status Medication Sig Dispensed Refills Start Date Active blood glucose Use as 1 Kit 0 meterIndications: DM directed. 6 (diabetes mellitus) Active insulin NPH (NOVOLIN N Inject 70 110 mL 3 NPH U-100 INSULIN) 100 units under 8 unit/mL injection the skin in the morning and 60 units in the evening after meal. Active lisinopril-hydrochlorothi Take 1 tablet 90 tablet 1 azide (ZESTORETIC) by mouth 8 20-12.5 mg per daily. tabletIndications: Essential hypertension Active atorvastatin (LIPITOR) 40 Take 1 tablet 90 tablet 1 mg tabletIndications: by mouth at 8 Hyperlipidemia, bedtime unspecified nightly. hyperlipidemia type Active blood glucose test strips Check blood 200 Each glucose 2 8 times daily. Active lancets 28 gauge by 200 Each MISCELLANEOUS 8 route 2 times daily. Active INSULIN SYRINGE 1mL Use to inject 300 Syringe 03/28 30GX5/16" (MONOJECT medication 2 8 ULTRACOMFORT INSULIN SYR times daily. 1ML 30GX5/16") Use a new syringe-needleIndications syringe each : Inadequately controlled time. diabetes mellitus Active ergocalciferol (VITAMIN Take 1 12 capsule 0 D2) 50,000 unit capsule by 8 capsuleIndications: mouth weekly. Vitamin D deficiency Active metFORMIN (GLUCOPHAGE) Take 2 360 tablet 1 500 mg tabletIndications: tablets by 8 Inadequately controlled mouth 2 times diabetes mellitus daily (with meals). Active insulin aspart U-100 Inject 4 6 mL 0 11/02 (NOVOLOG FLEXPEN U-100 Units under 8 INSULIN) 100 unit/mL the skin penIndications: daily before Uncontrolled type 2 lunch. diabetes mellitus without complication, with long-term current use of insulin Active pen needle, diabetic Inject under 1 Box 11 (TRUEPLUS PEN NEEDLE) 31 the skin 8 gauge x 3/16" daily. needlesIndications: Uncontrolled type 2 diabetes mellitus without complication, with long-term current use of insulin Active Problems Problem Noted Date History of colonoscopy 03/201711/29/2017 Overview: No further colonoscopy desired by rizwan urban. Inadequately controlled diabetes mellitus 08/30/2016 History of diverticulitis 07/07/2016 Essential hypertension: on meds /poor control: low sa lt diet and exercise05/24/2016 f/u with PCP in 2 wk 05/13 Poorly controlled diabetes mellitus 10/01/2015 Fall 03/04/2014 NS (nuclear sclerosis) 11/29/2013 Diabetes mellitus type 2 without retinopathy 014 Hyperopia with astigmatism and presbyopia 11/29/2013 Uncontrolled type II diabetes mellitus 05/12/2009 Hyperlipidemia LDL goal < 100 12/23/2008 Screening 12/23/2008 HTN (hypertension) 03/25/2008 Family history of diabetes mellitus 02/05/2008 Elevated LFT's 02/05/2008 Diverticulitis 09/05/2007 Diverticuloses 09/05/2007 Immunizations Name Administration Dates Next Due Herpes Zoster Vaccine In 07/07/2016 Clinic Influenza Vaccine 02/25/2016, 02/12/2015, , 01/20/2009 Influenza Vaccine, 04/19/2017 (Deferred: Rizwan urban already had this Seasonal, Injectable immunization - 01/10/17), 1 PPV 23 Pneumococcal 12/23/2008 Polysaccaride Pneumococcal 13-valent 02/25/2016 conj 0.5 mL injection Tdap Tetanus, diphtheria, 05/15/2014 acellular pertussis Vaccine Family History Medical History Relation Name Comments Stroke Brother Stroke Brother Diabetes Mother Heart Mother NO CANCER Hypertension Mother Relation Name Status Comments Brother Alive Brother Alive Brother Alive Brother Alive Brother (Age 70) Brother (Age 70) Brother Brother Father pneumonia (Age 45) Mother dm (Age 72) Social History Date Tobacco Use Types Packs/Day Years Used Never Smoker Smokeless Tobacco: Never Used Tobacco Cessation: Counseling Given: Yes Drinks/Week oz/Week Comments Alcohol Use 0 Standard drinks or equivalent 0.0 No Food Insecurity Answer Date Recorded Within the past 12 months, you worried that your Never didier e 11/02/2017 food would run out before you got money to buy more. Within the past 12 months, the food you bought Never true 11/02/2017 just didn't last and you didn't have mo usha to get more. Sex Assigned at Date Recorded Not on file Industry Job Start Date Occupation Not on file Not on file Not on file Travel End Travel History Travel Start No recent travel history available. Last Filed Vital Signs Not on file Plan of Treatment Health Maintenance Due Date Last Done Comments Colorectal Cancer Scrn 04/07/2018 04/07/2017, Annual (FIT/FOBT) Age 50 04/07/2016, to 75 03/07/2008 DM Retinal Exam (Yearly) 04/19/2018 04/19/2017, 04/07/2016, 07/15/2013, Additional history exists Breast Cancer Scrn 05/04/2018 05/04/2017, (Yearly) 03/08/2016, 08/05/2013, Additional history exists DM HGBA1C (Yearly) 10/04/2018 10/04/2017, 05/15/2017, 01/03/2017, Additional history exists DM Foot Exam (Yearly) 11/02/2018 11/02/2017, 04/19/2017, 05/24/2016, Additional history exists IMM Pneumococcal Age 65 Completed 12/23/2008 and Up Goals Goal Patient Associated Recent Progress Patient-Stat Aut hor Goal Type Problems ed? Eat Healthy Lifestyle No Ted, Dakota Yates, ALISON Eat Healthy-Reduce portion Lifestyle No Jesus Manuel thibodeaux, sizes and Follow meal plan Dakota Yates RN Results Not on fileafter 12/29/2018 Advance Directives Patient Information Technology Specialist Explanation Type Date Recorded Advance Directives 07/15/2013 7:49 AM and Living Will Advance Directives 07/15/2013 8:15 AM and Living Will
--- OUTSIDE RECORDS SUMMARY | 2019-12-30 06:36 | XMS REPORT | Continuity of Care Document ---
Author Author Amado Malcolm Unified Inbox Stacy VIDA [facility] Organization [facility] Address Unknown Phone Unavailable Care Team Providers Care Cryogenics Engineer Name Role Phone Montage Talent Information Jianshu Unavailable Un available Problems Problem Status Onset Date Classification Date Reported Comments Source DX: K57.30=DIVERTICULOSIS OF LARGE INTES Active 06/03/2019 [facility] R05 - COUGH Active 02/15/2019 [facility] Encounter for screening mammogram for ma lignant neoplasm of breast 03/07/2018 09/19/2018 [facility] Z12.31 - ENCNTR SCREEN MAMMOGRAM FOR MA Active 02/06/2018 [facility] Encounter for preprocedural cardiovascular examination 12/16/2017 06/30/2018 [facility] V72.83 - PRE-OP EXAM NEC Active 12/08/2017 [facility] Medications No Data Provided for This Section Allergies, Adverse Reactions, Alerts No Known Medication Allergies Immunizations No Data Provided for This Section Results No Data Provided for This Section Pathology Reports No Data Provided for This Section Diagnostic Reports Report Value Date Source Hip 2/3 views uni w pelvis DX Exam: Hip 2/3 views right w pelvis DX Reason for Exam: - right hip pain Comparison Exam: None Discussion: No acute bony abnormalities identified. 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 SI joints and pubic symphysis are unremarkable. No suspicious osteoblastic or osteolytic lesions seen to suggest pathologic involvement. No evidence seen for avascular necrosis involving the femoral heads. Impression: 1. 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 09/26/2019 [facility] Barium enema air contrast DX R eport was faxed. Receipt of fax was verified by Keke in the office of Martinez Koenig at 06/07/2019 9:59 AM CDT. Ced Canchola MD On 06/07/2019 09:59:14; [id number] PROCEDURE INFORMATION: Exam: FL Colon Air Contrast Enema Exam date and time: 06/07/2019 8:07 AM Age: 73 years old Clinical indication: Diverticulosis of large intestine without perforation or abscess without bleeding; Additional info: /k57.30 diverticulosis of large intestine without perforation or abscess without bleeding. K57.92 diverticulitis of intestine, part unspecified, without perforation or abscess without bleeding TECHNIQUE: Imaging protocol: Radiologic examination, colon contrast, air contrast with specific high density barium, with or without glucagon. Guided with fluoroscopy. The interpreting radiologist was present during the examination. COMPARISON: No relevant prior studies available. FINDINGS: Grease Machine Worker: Air-filled loops of colon and small bowel. Procedure summary: Double contrast enema was performed, however, contrast was not able to pass beyond the distal sigmoid colon. Severe diverticulosis is noted in this region. Fluoroscopy time: 80 seconds Number of fluoro spot images: 18 Reference Air Kerma: 81.11 mGy IMPRESSION: Inability to pass contrast beyond in sigmoid colon which may be secondary to severe diverticulosis/diverticulitis. The possibility of an underlying mass is not excluded. Correlation with a CT scan of the abdomen pelvis with IV and oral contrast is recommended as well as possible surgical consult. Ced Canchola MD On 06/07/2019 09:34:59; [id number] 06/07/2019 [facility] Bone Density DXA Dual Energy MA BONE DENSITY ASSESSMENT: 10/31/2018 CLINICAL DATA: Post menopausal and clinical risk for osteoporosis. Disorder Of Bone, Unspecified/M89.9 DISEASE HISTORY: Rheumatoid arthritis and type 1 diabetes. FINDINGS: Bone density evaluation was performed 10/31/2018 on the right femur neck using a Hologic unit. The BMD average for the exam is 0.727 g/cm2. The T-score is -1.10 and the Z-score is 0.70. This matches the World Health Organization's criteria for osteopenia and places the patient at a medium risk for fracture. An additional bone density evaluation was performed 10/31/2018 on the left femur neck using a Hologic unit. The BMD average for the exam is 0.792 g/cm2. The T- score is -0.50 and the Z-score is 1.30. This matches the World Health Organization's criteria for normal bone density and places the patient within normal limits of fracture risk. An additional bone density evaluation was performed 10/31/2018 on the right hip using a Hologic unit. The BMD average for the exam is 0.926 g/cm2. The T-score is -0.10 and the Z-score is -1.40. This matches the World Health Organization's criteria for normal bone density and places the patient within normal limits of fracture risk. An additional bone density evaluation was performed 10/31/2018 on the left hip using a Hologic unit. The BMD average for the exam is 0.853 g/cm2. The T-score is -0.70 and the Z-score is 0.90. This matches the World Health Organization's criteria for normal bone density and places the patient within normal limits of fracture risk. An additional bone density evaluation was performed 10/31/2018 on the AP L1-L4 region of spine using a Hologic unit. The BMD average for the exam is 1.010 g/cm2. The T-score is -0.30 and the Z-score is 2.00. This matches the World Health Organization's criteria for normal bone density and places the patient within normal limits of fracture risk. FRAX 10 year probability of major osteoporotic fracture is 6.1% and hip fracture is 0.7%. IMPRESSION: OSTEOPENIA Patient is at medium risk for fracture. Patient consult w/primary care provider is recommended. This exam was interpreted at [id number] for SUHA Chopra. Thu Hewitt M.D., ms/terri:10/31/2018 10:54:20 Sprinkler Worker(s): Kristina ZAMBRANO(Stephanie)(M), [facility] [place] [facility] JESSICA incl CAD MA BILATERAL DIGITAL SCREENING MAMMOGRAM WITH CAD: 03/01/2018 CLINICAL: Encounter For Screening Mammogram For Malignant Neoplasm Of Breast/Z12.31. Current study was evaluated with a Computer Aided Detection (CAD) system. COMPARISON:No previous mammograms available for comparison at time of image interpretation. These have been requested. TECHNIQUE: Mammographic views were obtained using digital acquisition. Current study was also evaluated with a Computer Aided Detection (CAD) system. FINDINGS: There are scattered fibroglandular densities in both breasts. There are scattered and occasionally grouped bilateral benign-appearing and similar-appearing calcifications. No significant masses, calcifications, or other findings are seen in either breast. IMPRESSION: BENIGN RECOMMENDATION: There is no mammographic evidence of malignancy. A 1 year screening mammogram is recommended.(03/02/2019) In the absence of previous mammograms, a screening mammogram is recommended in one year. Should previous mammograms become available for comparison, an addendum comparison will be generated at no charge to the patient. Professional services are provided by the [facility] Diagnostic [facility]. Servando Carlos M.D. magda/:03/19/2018 08:19:36 Sprinkler Worker(s): Kristina Lui RT(R)(M), [facility] letter sent: BI-RADS 1/2 Mammogram BI-RADS: 2 Benign 03/01/2018 [facility] Chest 2 views DX EXAM: Chest 2 views DX HISTORY: - surgery clearance oral surgery COMPARISON: None The heart size is normal. The lungs are clear. There is no pleural effusion or pneumothorax. No acute skeletal abnormality. IMPRESSION: No acute abnormality. 12/11/2017 [facility] Consultation Notes No Data Provided for This Section Discharge Summaries No Data Provided for This Section History and Physicals No Data Provided for This Section Vital Signs No Data Provided for This Section Encounters Location Location Details Encounter Type Encounter Number Reason For Visit Attending Provider ADM Date DC Date Status Source [facility] [place] [facility] [id number] Arleen Boccardo-Philip 12/11/2017 12/12/2017 [facility] [place] [facility] [id number] Arleen Boccardo-Philip 03/01/2018 03/02/2018 [facility] [place] [facility] [id number] Arleen Boccardo-Philip 10/31/2018 11/01/2018 [facility] Out[facility] [id number] Martinez Koenig 06/07/2019 06/08/2019 [facility] [place] [facility] [id number] 05 Arleen Boccardo-Philip 09/26/2019 09/27/2019 [facility] Procedures No Data Provided for This Section Assessment and Plan No Data Provided for This Section Plan of Care No Data Provided for This Section Social History Social History Date Source Social History TypeResponse 09/27/2019 [facility] Social History TypeResponse 06/08/2019 [facility] Family History No Data Provided for This Section Advance Directives No Data Provided for This Section Functional Status No Data Provided for This Section
--- OUTSIDE RECORDS SUMMARY | 2019-12-30 06:37 | XMS REPORT | Continuity of Care Document ---
Author Author [facility] t Organization [facility] t Address [address] [place] [address] Phone Unavailable Care Team Providers Care Lubrication Technician Name Role Phone SONNY LEO MD PCP Sonny Loo Attphys LO WADE Attphys Unavailable Rhoda Koenig Attphys Chase VILLANUEVA Attphys Unavailable Nicole IRWIN Attphys Unavailable Rhoda CARDOSO Attphys Unavailable Payers Payer Name Policy Type Policy Number Effective Date Expiration Date Rhoda Smith [facility] [id number] 2019 00:00:00 [facility] [employer] [place] [facility] [id number] 2016 00:00:00 [facility] Medicare A & B [id number] [facility] Problems Condition Name Condition Details Condition Category Status Onset Date Resolution Date Last Treatment Date Treating Clinician Comments Source DX: K57.30=DIVERTICULOSIS OF LARGE INTES DX: K57.30=DIVERTICULOSIS OF LARGE INTES Active 06/03/2019 [facility] Active 2019-06-03 00:00:00 2019-06-07 06:51:00 Amado Fowler R05 - COUGH R05 - COUGH Active 02/15/2019 OPID [facility] Diagnosis Active 2019-02-15 00:01:00 2019-05-09 18:30:00 Amado Fowler Z12.31 - ENCNTR SCREEN MAMMOGRAM FOR MA Z12.31 - ENCNTR SCREEN MAMMOGRAM FOR MA Active 02/06/2018 MH OPID [facility] Diagnosis Active 2018-02-06 00:01:00 2018-07-06 16:51:00 M vianey Fowler V72.83 - PRE-OP EXAM NEC V72. 83 - PRE-OP EXAM NEC Active 12/08/2017 SUHA Dumont Diagnosis Active 2017-12-08 00:01:00 2017-12-11 09:33:00 Amado Fowler History of colonoscopy 03/2017 History of colonoscopy 03/2017 Disease Active 2017-11-29 00:00:00 Overview: No further colonoscopy desired by patient. [facility] Inadequately controlled diabetes mellitus Inadequately controlled diabetes mellitus Disease Active 2016-08-30 00:00:00 [facility] History of diverticulitis History of diverticulitis Disease Ac tive 2016-07-07 00:00:00 [facility] Essential hypertension: on meds /poor co ntrol: low salt diet and exercise// f/u with PCP in 2 wk 05/13 Essential hypertension: on meds /poor co ntrol: low salt diet and exercise// f/u with PCP in 2 wk 05/13 Disease Active 2016-05-24 00:00:00 [facility] Poorly controlled diabetes mellitus Poorly controlled diabetes m ellitus Disease Active 2015-10-01 00:00:00 [facility] Fall Fall Disease Active 2014-03-04 00:00:00 [facility] NS (nuclear sclerosis) NS (nuclear sclerosis) Disease Active 2013-11-29 00:00:00 [facility] Diabetes mellitus type 2 without retinopathy Diabetes mellitus type 2 without retinopathy Disease Active 2013-11-29 00:00:00 [facility] Hyperopia with astigmatism and presbyopia Hyperopia wi th astigmatism and presbyopia Disease Active 2013-11-29 00:00:00 Hydrocapsule Uncontrolled type II diabetes mellitus Uncontrolled type II diabetes mellitus Disease Active 2009-05-12 00:00:00 [facility] Hyperlipidemia LDL goal < 100 Hyperlipidemia LDL goal < 100 Disease Active 2008-12-23 00:00:00 [facility] ealth Screening Screening Disease Active 2008-12-23 00:00:00 [facility] HTN (hypertension) HTN (hypertension) Disease Active 2008-03-25 00:00:0 0 [facility] Family history of diabetes mellitus Family history of diabetes m ellitus Disease Active 2008-02-05 00:00:00 [facility] Elevated LFT's Elevated LFT's Disease Active 2008-02-05 00:00:00 [facility] Diverticulitis Diverticulitis Disease Active 2007-09-05 00:00:00 [facility] Diverticuloses Diverticuloses Disease Active 2007-09-05 00:00:00 [facility] Pancreatitis Pancreatitis Problem Active [facility] Vomiting Vomiting Problem Active [facility] Encounter for screening mammogram for malignant neopla sm of breast Encounter for screening mammogram for malignant neoplasm of breast 03/07/2018 09/19/2018 SUHA Dumont Problem 2018-03-07 05: 57:28 2018-09-19 11:41:05 2018-09-19 11:41:05 Amado mustafa Encounter for preprocedural cardiovascular examination Encounter for preprocedural cardiovascular examination 12/16/2017 06/30/2018 SUHA Dumont Problem 2017-12-16 04:56:02 2018-06-30 13:11:01 2018-06-30 13:11:01 Amado Fowler Allergies, Adverse Reactions, Alerts Allergy Name Allergy Type Status Severity Reaction(s) Onset Date Inacti ve Date Treating Clinician Comments Source Aspirin Allergy to Substance Active 2016-04-18 00:00:00 [facility] Family History Family Member Diagnosis Comments Start Date Stop Date Source Natural brother Stroke [facility] alth Natural mother Diabetes [place] [facility] Natural mother Heart [facility] Natural mother Hypertension [facility] Social History Social Habit Start Date Stop Date Quantity Comments Source Sex Assigned At [facility] Alcohol intake 2018-08-29 00:00:00 2018-08-29 00:00:00 Current non-drinker of alcohol (finding) [facility] SDOH Food Worry 2017-11-02 00:00:00 2017-11-02 00:00:00 1 [facility] SDDC Food Scarcity 2017-11-02 00:00:00 2017-11-02 00:00:00 1 [facility] Smoking Status Start Date Stop Date Source Never smoker [facility] Medications Ordered Medication Name Filled Medication Name Start Date Stop Da te Current Medication? Ordering Clinician Indication Dosage Frequency Signature (SIG) Comments Components Source Cephalexin Monohydrate (Keflex) 500 Mg Capsule Cephale janette Monohydrate (Keflex) 500 Mg Capsule 2019 00:00:00 Yes Kris Clement Md 500 Every 12 Hours [facility] Famotidine 20 Mg Tab Famotidine 20 Mg Tab 2018-09-01 00:00:00 Yes Kris Clement Md 20 Twice Daily Before Meals [facility] Hydralazine Hcl 25 Mg Tab Hydralazine Hcl 25 Mg Tab 2018-09-01 00:00: 00 Yes Kris Clement Md 50 Three Times A Day [facility] Ciprofloxacin Hcl (Cipro) 500 Mg Tablet, 500 Mg Oral C iprofloxacin Hcl (Cipro) 500 Mg Tablet, 500 Mg Oral 2018-09-01 00:00:00 2019-02-21 00:00:00 No Kris Clement Md 500 Every 12 Hours [facility] Metronidazole (Flagyl) 500 Mg Tablet, 500 Mg Oral Metr onidazole (Flagyl) 500 Mg Tablet, 500 Mg Oral 2018-09-01 00:00:00 2019-02-21 00:00:00 No Kris mcgregor Md 500 Three Times A Day [facility] insulin aspart U-100 (NOVOLOG FLEXPEN U-100 INSULIN) 100 uni t/mL pen 2017-11-02 00:00:00 Yes Uncontrolled type 2 diabetes mellitus without complication, with long-term current use of insulin 4U Inject 4 Units under the skin daily before lunch. [facility] pen needle, diabetic (TRUEPLUS PEN NEEDLE) 31 gauge x 3/16" needles 2017-11-02 00:00:00 Yes Uncontrolled typ e 2 diabetes mellitus without complication, with long-term current use of insulin QD Inject under the ski n daily. [facility] metFORMIN (GLUCOPHAGE) 500 mg tablet 2017-08-04 00:00:00 Yes Inadequately controlled diabetes mellitus 1000mg Take 2 tabl ets by mouth 2 times daily (with meals). [facility] ergocalciferol (VITAMIN D2) 50,000 unit capsule 2017-05-26 0 0:00:00 Yes Vitamin D deficiency 33172T Take 1 capsule by mouth weekly. [facility] insulin NPH (NOVOLIN N NPH U-100 INSULIN) 100 unit/mL inject ion 2017-04-19 00:00:00 Yes Inject 70 units under the skin in the morning and 60 units in the evening after meal. [facility] lisinopril-hydrochlorothiazide (ZESTORETIC) 20-12.5 mg per t ablet 2017-04-19 00:00:00 Yes Essential hypertension 1{tbl} QD Take 1 t ablet by mouth daily. [facility] atorvastatin (LIPITOR) 40 mg tablet 2017-04-19 00:00:00 Yes Hyperlipidemia, unspecified hyperlipidemia type 40mg Take 1 tablet by mouth at bedtime nightly. [facility] blood glucose test strips 2017-04-19 00:00:00 Yes 1{each} Q.5D Check blood glucose 2 times daily. [facility] th lancets 28 gauge 2017-04-19 00:00:00 Yes Q.5D by MISCELLANEOUS route 2 times daily. [facility] INSULIN SYRINGE 1mL 30GX5/16" (MONOJECT ULTRACOMFORT INSULIN SYR 1ML 30GX5/16") syringe-needle 2017-04-19 00:00:00 Yes I nadequately controlled diabetes mellitus Q.5D Use to inject medica tion 2 times daily. Use a new syringe each time. [facility] blood glucose meter 2015-10-16 00:00:00 Yes DM (d iabetes mellitus) Use as directed. [facility] Atorvastatin Calcium 40 Mg Tablet Atorvastatin Calcium 40 Mg Tablet Yes 40 Bedtime [facility] Benzonatate 100 Mg Capsule Benzonatate 100 Mg Capsule Yes 100 Every 12 Hours as needed for Cough [facility] Glimepiride 4 Mg Tablet Glimepiride 4 Mg Tablet Yes 4 Daily [facility] Insulin Human Nph (Humulin N) 100 Units/Ml Ml Insulin Human Nph (Humulin N) 100 Units/Ml Ml Yes 50 Bedtime [facility] Insulin Human Nph (Humulin N) 100 Units/Ml Ml Insulin Human Nph (Humulin N) 100 Units/Ml Ml Yes 70 Daily [facility] Lisinopril 5 Mg Tablet Lisinopril 5 Mg Tablet Yes 20 Twice A Day [facility] Metformin Hcl 1,000 Mg Tablet Metformin Hcl 1,000 Mg Tablet Yes 1000 Twice A Day [facility] Trazodone Hcl 50 Mg Tablet Trazodone Hcl 50 Mg Tablet Yes 50 Bedtime [facility] Acetaminophen/Codeine Phosphate (Tylenol # 3*) 1 Ea Ta b, 1 Tab Oral Acetaminophen/Codeine Phosphate (Tylenol # 3*) 1 Ea Tab, 1 Tab Oral 2019-02-21 00:00:00 No 1 Every 6 Hours as needed for Mod erate Pain (4-6) [facility] Ondansetron Hcl 4 Mg Tablet, 4 Mg Oral Ondansetron Hcl 4 Mg Tabl et, 4 Mg Oral 2019-02-21 00:00:00 No 4 Every 6 Ho urs as needed for Nausea And Vomiting [facility] Aspirin 81 Mg Tablet, 81 Mg Oral Aspirin 81 Mg Tablet, 81 Mg Ora l 2018-08-27 00:00:00 No 81 Daily [facility] Insulin Regular, Human (Humulin R) 100 Unit/1 Ml Vial, Insulin Regular, Human (Humulin R) 100 Unit/1 Ml Vial, 2018-08-27 00:00:00 No [facility] Meclizine Hcl 12.5 Mg Tablet, 25 Mg Oral Meclizine Hcl 12.5 Mg Tablet, 25 Mg Oral 2018-08-27 00:00:00 No 25 Ever y 6 Hours as needed for Nausea And Vomiting [facility] Nph, Human Insulin Isophane (Novolin N) 100 Unit/1 Ml Vial, 50 Units Sub-Q Nph, Human Insulin Isophane (Novolin N) 100 Unit/1 Ml Vial, 50 Units Sub-Q 2018-08-27 00:00:00 No 50 Twice A Day [facility] Lisinopril/Hydrochlorothiazide (Lisinopril-Hctz 10-12. 5 Mg Tab) 1 Each Tablet, Lisinopril/Hydrochlorothiazide (Lisinopril-Hctz 10-12.5 Mg Tab) 1 Each Tablet, 2016-04-20 00:00:00 No [facility] Hydrochlorothiazide 25 Mg Tablet, 25 Mg Oral Hydrochlo rothiazide 25 Mg Tablet, 25 Mg Oral 2014-03-04 00:00:00 No 25 Daily [facility] Pravastatin Sodium 20 Mg Tablet, 20 Mg Oral Pravastati n Sodium 20 Mg Tablet, 20 Mg Oral 2014-03-04 00:00:00 No 20 Daily [facility] Immunizations Ordered Immunization Name Filled Immunization Name Date Status Comments Source Influenza Vaccine, Seasonal, Injectable 2017-01-10 00:00:0 0 Completed [facility] Herpes Zoster Vaccine In Clinic 2016-07-07 00:00:00 Anuradha mcbride [facility] Pneumococcal 13-valent conj 0.5 mL injection 2016-02-25 00 :00:00 Completed [facility] Influenza Vaccine 2016-02-25 00:00:00 Completed [facility] Influenza Vaccine 2015-02-12 00:00:00 [facility] Tdap Tetanus, diphtheria, acellular pertussis Vaccine 2014-05-15 00:00:00 Completed [facility] Influenza Vaccine 2014-01-22 00:00:00 Completed [facility] Influenza Vaccine 2009-01-20 00:00:00 [facility] PPV 23 Pneumococcal Polysaccaride 2008-12-23 00:00:00 Comp leted [facility] Procedures Procedure Date / Time Performed Performing Clinician Sour e Computed tomography of brain without radiopaque contrast 202 00:00:00 LO WADE [facility] X-ray of chest, two views 2019-06-07 00:00:00 LO WADE CH I [facility] Computed tomography of abdomen and pelvis with contrast 2018 00:00:00 MIRNA VILLANUEVA [facility] Computed tomography of brain without radiopaque contrast 201 11-30-08 00:00:00 NI IRWIN [facility] Computed tomography of abdomen and pelvis with contrast 2018 00:00:00 DESIRE MCCLOUD [facility] Plan of Care Planned Activity Planned Date Details Comments Source Future Scheduled Test 2018-11-02 00:00:00 DM Foot Exam (Year ly) [code = DM Foot Exam (Yearly)] [facility] Scheduled Test 2018-10-04 00:00:00 Hemoglobin A1c aurora surement (procedure) [code = 59026070] [facility] Scheduled Test 2018-05-04 00:00:00 Breast Cancer Scrn (Yearly) [code = Breast Cancer Scrn (Yearly)] [facility] Scheduled Test 2018-04-19 00:00:00 DM Retinal Exam (Y early) [code = DM Retinal Exam (Yearly)] [facility] Future Scheduled Test 2018-04-07 00:00:00 Screening for david gnant neoplasm of colon (procedure) [code = 702412474] [facility] Encounters Start Date/Time End Date/Time Encounter Type Admission Type [facility] Care Department Encounter ID Source 2019-09-26 13:22:00 2019-09-26 23:59:00 Outpatient Sonny Metcalf [facility] [id number] 2019-06-07 16:05:00 2019 12:05:00 Discharged Inpatient (obs) 1 LO WADE [facility] [id number] [facility] 2019-06-07 06:39:00 2019-06-07 23:59:00 Outpatient Martinez Koenig [facility] [id number] 2019-06-07 06:39:00 2019-06-07 06:39:[address] 2019-02-21 02:25:00 2019-02-23 17:47:00 Discharged Inpatient 1 MIRNA VILLANUEVA [facility] [id number] [facility] 2018-10-31 07:57:00 2018-10-31 23:59:00 Outpatient Sonny Metcalf [facility] [id number] 2018-09-02 15:44:00 2018-09-02 19:20:00 Departed Emergency Room 1 NI IRWIN [facility] [id number] [facility] 2018-08-27 06:58:00 2018-09-01 15:31:00 Discharged Inpatient 1 DESIRE CARDOSO [facility] [id number] [facility] 2018-03-01 08:04:00 2018-03-01 23:59:00 Outpatient Sonny Metcalf [facility] [id number] 2018-02-21 00:00:00 2018-02-21 00:00:00 Outpatient [facility] [id number] [facility] 2017-12-11 09:23:00 2017-12-11 23:59:00 Outpatient Riki magdalenoPhilipSonny [facility] [id number] 2017-11-13 00:00:00 2017-11-13 00:00:00 Outpatient [facility] [id number] [facility] 2017-11-13 00:00:00 2017-11-13 00:00:00 Outpatient [facility] [id number] [facility] 2017-11-02 13:10:04 2017-11-02 13:10:04 Outpatient [facility] [id number] [facility] 2017-11-02 00:00:00 2017-11-02 00:00:00 Outpatient [facility] [id number] [facility] 2017-10-31 00:00:00 2017-10-31 00:00:00 Outpatient [facility] [id number] [facility] 2017-10-04 08:34:33 2017-10-04 08:34:33 Outpatient [facility] [id number] [facility] 2017-08-04 16:00:12 2017-08-04 16:00:12 Outpatient [facility] [id number] [facility] 2017-08-04 14:48:53 2017-08-04 14:48:53 Outpatient [facility] [id number] [facility] 2017-08-01 14:47:07 2017-08-01 14:47:07 Outpatient [facility] [id number] [facility] 2017-06-13 07:26:45 2017-06-13 07:26:45 Outpatient [facility] [id number] [facility] 2017-06-05 00:00:00 2017-06-05 00:00:00 Outpatient [facility] [id number] [facility] 2017-05-24 14:46:34 2017-05-24 14:46:34 Outpatient [facility] [id number] [facility] 2017-05-15 08:37:45 2017-05-15 08:37:45 Outpatient [facility] [id number] [facility] 2017-05-04 14:36:07 2017-05-04 14:36:07 Outpatient [facility] [id number] [facility] Results Test Description Test Time Test Comments Results Result Comments Source Bedside Glucose 2019 11:35:00 Test Item Bedside Glucose (test code = 20614-7) 256 70-120 H Meter ID: [id number] [facility] Culture 2019-06-08 23:54:00* Test Item Value Reference Range Interpretation Comments Blood Culture (test code = 55639433) NO GROWTH AFTER 24 HOURS [facility] Kinase [id number] 07:51:00* Test Item Value Reference Range Interpretation Comments Creatine Kinase MB (test code = 89562-9) 0.80 0-5.0 [facility] CenterTroponin [id number] 07:51:00* Test Item Value Reference Range Interpretation Comments Troponin I (test code = GUH4038) 0.011 0-0.300 [facility] Center[facility] Ghwnbb9454-06-32 07:43:00* Test Item Value Reference Range Interpretation Comments Creatine Kinase (test code = 2157-6) 202 29-168 [facility] [id number] 06:01:00* Test Item Value Reference Range Interpretation Comments Sodium Level (test code = 2951-2) 133 136-145 L [facility]Potassium [id number] 06:01:00* Test Item Value Reference Range Interpretation Comments Potassium Level (test code = 2823-3) 4.1 3.5-5.1 [facility] CenterChloride [id number] 06:01:00* Test Item Value Reference Range Interpretation Comments Chloride Level (test code = 2075-0) 105 98-107 [facility] CenterCarbon Dioxide [id number] 06:01:00* Test Item Value Reference Range Interpretation Comments Carbon Dioxide Level (test code = 2028-9) 25 22-29 [facility] CenterAnion [id number] 06:01:00* Test Item Value Reference Range Interpretation Comments Anion Gap (test code = 55600-8) 7.1 8-16 L [facility] CenterBlood Urea [id number] 06:01:00* Test Item Value Reference Range Interpretation Comments Blood Urea Nitrogen (test code = 3094-0) 11 7-26 [facility] CenterCreatinine2020-03-14 06:01:00* Test Item Value Reference Range Interpretation Comments Creatinine (test code = 2160-0) 0.91 0.57-1.11 [facility] CenterBUN/Creatinine Chfiz1578-20-55 06:01:00* Test Item Value Reference Range Interpretation Comments BUN/Creatinine Ratio (test code = 3097-3) 12 6-25 [facility] CenterEstimat Glomerular Filtration Rate 2019-06-08 06:01:00* Test Item Value Reference Range Interpretation Comments Estimat Glomerular Filtration Rate (test code = 817424326) > 60 >60 Ranges were taken from the National Kidney Disease Education Program and the [facility] Kidney Foundation literature.Reference ranges:60 or greater: Nlwjxp27-49 ( for 3 consecutive months): Chronic kidney disease 15 or less: Kidney failureP[facility] CenterGlucose Obzum2701-56-88 06:01:00* Test Item Value Reference Range Interpretation Comments Glucose Level (test code = FXN0431) 130 74-118 H [facility] CenterCalcium Sxvcx6218-03-15 06:01:00* Test Item Value Reference Range Interpretation Comments Calcium Level (test code = 35574-2) 8.5 8.4-10.2 [facility] CenterTotal Hzxwcowgu2669-14-29 06:01:00* Test Item Value Reference Range Interpretation Comments Total Bilirubin (test code = 1975-2) 0.6 0.2-1.2 [facility] CenterAspartate Amino Transf (AST/SGOT) 2019-06-08 06:01:00* Test Item Value Reference Range Interpretation Comments Aspartate Amino Transf (AST/SGOT) (test code = Aspartate Amino Transf (AST/SGOT)) 24 5-34 [facility] CenterAlanine Aminotransferase (ALT/SGPT) 2019-06-08 06:01:00* Test Item Value Reference Range Interpretation Comments Alanine Aminotransferase (ALT/SGPT) (test code = 1742-6) 14 0-55 [facility] CenterTotal Gvxxikb4329-39-85 06:01:00* Test Item Value Reference Range Interpretation Comments Total Protein (test code = 2885-2) 6.7 6.5-8.1 [facility] CenterAlbumin2020-03-14 06:01:00* Test Item Value Reference Range Interpretation Comments Albumin (test code = 1751-7) 2.7 3.5-5.0 L [facility] CenterGlobulin2020-03-14 06:01:00* Test Item Value Reference Range Interpretation Comments Globulin (test code = 16156-0) 4.0 2.3-3.5 H [facility] CenterAlbumin/Globulin [id number] 06:01:00 * Test Item Value Reference Range Interpretation Comments Albumin/Globulin Ratio (test code = 1759-0) 0.7 0.8-2.0 L [facility] CenterAlkaline Zkqnxqoirui7905-03-87 06:01:00* Test Item Value Reference Range Interpretation Comments Alkaline Phosphatase (test code = 6768-6) 93 40-150 [facility] CenterWhite Blood Svnde7319-57-95 05:40:00* Test Item Value Reference Range Interpretation Comments White Blood Count (test code = 6690-2) 10.08 4.8-10.8 [facility] CenterRed Blood [id number] 05:40:00* Test Item Value Reference Range Interpretation Comments Red Blood Count (test code = 789-8) 3.89 3.6-5.1 [facility] CenterHemoglobin2020-03-14 05:40:00* Test Item Value Reference Range Interpretation Comments Hemoglobin (test code = 44421-8) 10.5 12.0-16.0 L [facility] CenterHematocrit2020-03-14 05:40:00* Test Item Value Reference Range Interpretation Comments Hematocrit (test code = 4544-3) 33.1 34.2-44.1 L [facility] CenterMean Corpuscular Jbjrpa9361-82-21 05:40:00* Test Item Value Reference Range Interpretation Comments Mean Corpuscular Volume (test code = 787-2) 85.1 81-99 [facility] CenterMean Corpuscular Nkqbqphpkm2200-14-80 05:40:00* Test Item Value Reference Range Interpretation Comments Mean Corpuscular Hemoglobin (test code = 785-6) 27.0 28-32 L [facility] CenterMean Corpuscular Hemoglobin Concent 2019-06-08 05:40:00* Test Item Value Reference Range Interpretation Comments Mean Corpuscular Hemoglobin Concent (test code = 786-4) 31.7 31-35 [facility] CenterRed Cell Distribution Mlqvw7674-13-25 05:40:00* Test Item Value Reference Range Interpretation Comments Red Cell Distribution Width (test code = 97427-7) 14.3 11.7 -14.4 [facility] CenterPlatelet Tpfar8141-16-07 05:40:00* Test Item Value Reference Range Interpretation Comments Platelet Count (test code = 777-3) 239 140-360 [facility] CenterNeutrophils (%) (Auto)2019-06-08 05:40:00 * Test Item Value Reference Range Interpretation Comments Neutrophils (%) (Auto) (test code = 17690-9) 57.9 38.7-80.0 [facility] CenterLymphocytes (%) (Auto)2019-06-08 05:40:00 * Test Item Value Reference Range Interpretation Comments Lymphocytes (%) (Auto) (test code = 736-9) 30.2 18.0-39.1 [facility] CenterMonocytes (%) (Auto)2019-06-08 05:40:00* Test Item Value Reference Range Interpretation Comments Monocytes (%) (Auto) (test code = 5905-5) 10.3 4.4-11.3 [facility] CenterEosinophils (%) (Auto)2019-06-08 05:40:00 * Test Item Value Reference Range Interpretation Comments Eosinophils (%) (Auto) (test code = 713-8) 1.1 0.0-6.0 [facility] CenterBasophils (%) (Auto)2019-06-08 05:40:00* Test Item Value Reference Range Interpretation Comments Basophils (%) (Auto) (test code = 706-2) 0.2 0.0-1.0 [facility] CenterIM GRANULOCYTES %2019-06-08 05:40:00* Test Item Value Reference Range Interpretation Comments IM GRANULOCYTES % (test code = IM GRANULOCYTES %) 0.3 0.0- 1.0 [facility] CenterNeutrophils # (Auto)2019-06-08 05:40:00* Test Item Value Reference Range Interpretation Comments Neutrophils # (Auto) (test code = 751-8) 5.8 2.1-6.9 [facility] CenterLymphocytes # (Auto)2019-06-08 05:40:00* Test Item Value Reference Range Interpretation Comments Lymphocytes # (Auto) (test code = 63174-8) 3.0 1.0-3.2 [facility] CenterMonocytes # (Auto)2019-06-08 05:40:00* Test Item Value Reference Range Interpretation Comments Monocytes # (Auto) (test code = 742-7) 1.0 0.2-0.8 [facility] CenterEosinophils # (Auto)2019-06-08 05:40:00* Test Item Value Reference Range Interpretation Comments Eosinophils # (Auto) (test code = 711-2) 0.1 0.0-0.4 [facility]ophils # (Auto)2019-06-08 05:40:00* Test Item Value Reference Range Interpretation Comments Basophils # (Auto) (test code = 704-7) 0.0 0.0-0.1 [facility] CenterAbsolute Immature Granulocyte (auto 2019-06-08 05:40:00* Test Item Value Reference Range Interpretation Comments Absolute Immature Granulocyte (auto (oc t code = Absolute Immature Granulocyte (auto) 0.03 0-0.1 [facility] CenterUrine [id number] 16:10:00* Test Item Value Reference Range Interpretation Comments Urine WBC (test code = 5821-4) 0-5 0-5 [facility] CenterU[facility] WII5749-68-51 16:10:00* Test Item Value Reference Range Interpretation Comments Urine RBC (test code = 19350-2) NONE 0-5 [facility] Center[facility] Dhomdioc2754-26-25 16:10:00* Test Item Value Reference Range Interpretation Comments Urine Bacteria (test code = 72251-0) MANY NONE H [facility] CenterUrine Epithelial Icjnl3138-66-46 16:10:00 * Test Item Value Reference Range Interpretation Comments Urine Epithelial Cells (test code = 36513-4) NONE NONE [facility] CenterU[facility] Ddzua3384-48-74 15:55:00* Test Item Value Reference Range Interpretation Comments Urine Color (test code = 5778-6) YELLOW YELLOW [facility] CenterU[facility] Qkbubqd0833-80-00 15:55:00* Test Item Value Reference Range Interpretation Comments Urine Clarity (test code = 13183-7) HAZY CLEAR [facility] CenterU[facility] Specific Mwjodad2669-29-18 15:55:00 * Test Item Value Reference Range Interpretation Comments Urine Specific [place] (test code = 5811-5) 1.020 1.010-1.02 5 [facility] CenterU[facility] zK2203-44-11 15:55:00* Test Item Value Reference Range Interpretation Comments Urine pH (test code = 98704-5) 5.5 5-7 [facility] CenterU[facility] Leukocyte Xtbgzvgh4563-83-32 15:55:00* Test Item Value Reference Range Interpretation Comments Urine Leukocyte Esterase (test code = 5799-2) TRACE NEGATIVE H [facility] CenterU[facility] Fahphwc8225-74-67 15:55:00* Test Item Value Reference Range Interpretation Comments Urine Nitrite (test code = 07282-0) POSITIVE NEGATIVE [facility] Center[facility] Iycpqcl2386-80-83 15:55:00* Test Item Value Reference Range Interpretation Comments Urine Protein (test code = 5804-0) 1+ NEGATIVE H [facility] CenterUrine Glucose (UA)2019-06-07 15:55:00* Test Item Value Reference Range Interpretation Comments Urine Glucose (UA) (test code = 2349-9) NEGATIVE NEGATIVE [facility] CenterU[facility] Cjrhhui3098-60-69 15:55:00* Test Item Value Reference Range Interpretation Comments Urine Ketones (test code = 28222-7) 1+ NEGATIVE H [facility] CenterU[facility] Qfazlqtrvtfj5314-28-35 15:55:00* Test Item Value Reference Range Interpretation Comments Urine Urobilinogen (test code = 41661-2) 0.2 0.2-1 [facility] Center[facility] Bacqgvirj2395-08-53 15:55:00* Test Item Value Reference Range Interpretation Comments Urine Bilirubin (test code = 1978-6) NEGATIVE NEGATIVE [facility] Center[facility] Nekty0440-53-35 15:55:00* Test Item Value Reference Range Interpretation Comments Urine Blood (test code = 29589-0) TRACE NEGATIVE H [facility] CenterB-Type Natriuretic Agjftxh7173-64-29 15:21:00* Test Item Value Reference Range Interpretation Comments B-Type Natriuretic Peptide (test code = 70189-0) 16.6 0-100 [facility] CenterCT BRAIN TI0118-51-40 14:57:00 [place] [address] Patient Name: VIDA HOBBS MR #: [id number] : 1945 Age/Sex: 73/F Req #: [id number] Adm Physician: Ordered by: LO WADE DO Report #: [id number] Location: ER Room/Bed: Procedure: [id number] CT/C T BRAIN WO Exam Date: 06/07/19 Exam Time: 1415 REPORT STATUS: Signed Examination: CT head without contrast Clinical Indication: Weakness. Technique: Transaxial noncontrast images from the skull base through the vertex were obtained. Sagit zayra and coronal reformatted images were done. Dose modulation, iterative recon struction, and/or weight based adjustment of the mA/kV was utilized to reduce the radiation dose to as low as reasonably achievable. Comparison: Head CT performed September 03, 1999. Findings: Scalp: No abnormalities. Bones: In tact. No fractures. No blastic or lytic lesions. Brain sulci: Mild volume loss for patient's age. Ventricles: No hydrocephalus. . Extra-axial spa ce: No abnormalities. Parenchyma: Again demonstrated are patchy and co nfluent areas of low-attenuation within subcortical and periventricular white matter, nonspecific, but could represent microvascular ischemic disease. No masses, hemorrhage, or acute or chronic cortical based vascular insults. Green prasellar region: No abnormalities. Craniocervical junction: The foramen magnu m is patent. No Chiari one malformation. Incidental findings: Atheros clerotic calcification of the cavernous and supraclinoid internal carotid yasmany jeni. Unchanged sphenoid sinusitis. Impression: 1. No acute intracr anial finding. No change from prior head CT dated 09/02/2018. 2. Unchanged c hronic microvascular ischemic change and volume loss. Signed by: Dr. Carter Fitzgerald M.D. on 06/07/2019 3:00 PM Dictated By: TIFFANIE CAPELLAN MD 1500 T ranscribed By: WALDO on 06/07/19 1500 COPY TO: LO WADE DO CHEST 2 YNQJI9560-82-95 14:48:00 [place] [address] Patient Name: VIDA HOBBS MR #: [id number] : 1945 Age/Sex: 73/F Req #: [id number] Adm Physician: Ordered by: LO WADE DO Report #: [id number] Location: ER Room/Bed: Procedure: [id number] DX/C HEST 2 VIEWS Exam Date: 06/07/19 Exam Time: 1435 REPORT STATUS: Signed EXAMINATION: CHEST 2 VIEWS INDICATION: Chest pain COMPARISON: None F INDINGS: LINES/TUBES:None LUNGS:The lungs are well-inflated. No focal consolidation or pulmonary edema. PLEURA:No pleural effusion or pneumothora x. MEDIASTINUM:The cardiomediastinal silhouette appears normal in size and shape. Atherosclerotic calcifications of the thoracic aorta. BONES/SOFT T ISSUES:No acute osseous injury. ABDOMEN:No free air under the diaphragm. IMPRESSION: No focal pneumonia or pulmonary edema. Signed by: Jen Stanton MD on 06/07/2019 2:49 PM Dictated By: BHAVESH STANTON MD Electronicall y Signed By: BHAVESH STANTON MD on 06/07/191448 Transcribed By: WALDO on 06/07/191448 COPY TO: LO WADE DO Bedside Tjrcmux5630-61-45 16:23:00 * Test Item Value Reference Range Interpretation Comments Bedside Glucose (test code = 85873-0) 146 70-120 H Meter ID: [id number] [facility] 2019-02-23 06:01:00* Test Item Value Reference Range Interpretation Comments Sodium Level (test code = 2951-2) 130 136-145 L [facility] CenterPotassium Svnwi6940-87-13 06:01:00* Test Item Value Reference Range Interpretation Comments Potassium Level (test code = 2823-3) 3.8 3.5-5.1 [facility] CenterChloride Djfpw5428-79-32 06:01:00* Test Item Value Reference Range Interpretation Comments Chloride Level (test code = 2075-0) 102 98-107 [facility] CenterCarbon Dioxide Adzpu9006-41-63 06:01:00* Test Item Value Reference Range Interpretation Comments Carbon Dioxide Level (test code = 2028-9) 21 22-29 L [facility] CenterAnion Kuu2291-98-58 06:01:00* Test Item Value Reference Range Interpretation Comments Anion Gap (test code = 74073-5) 10.8 8-16 [facility] CenterBlood Urea Jonsfybv1015-30-62 06:01:00* Test Item Value Reference Range Interpretation Comments Blood Urea Nitrogen (test code = 3094-0) 7 7-26 [facility] CenterCreatinine2019-11-30 06:01:00* Test Item Value Reference Range Interpretation Comments Creatinine (test code = 2160-0) 0.85 0.57-1.11 [facility] CenterBUN/Creatinine Hdugj4805-30-74 06:01:00* Test Item Value Reference Range Interpretation Comments BUN/Creatinine Ratio (test code = 3097-3) 8 6- [facility] CenterEstimat Glomerular Filtration Rate 2019-02-23 06:01:00* Test Item Value Reference Range Interpretation Comments Estimat Glomerular Filtration Rate (test code = 146386788) > 60 >60 Ranges were taken from the National Kidney Disease Education Program and the [facility] literature.Reference ranges:60 or greater: Rqglvw11-92 ( for 3 consecutive months): Chronic kidney disease 15 or less: Kidney failureP[facility] CenterGlucose Qoxjf1471-93-42 06:01:00* Test Item Value Reference Range Interpretation Comments Glucose Level (test code = MES1358) 155 74-118 H [facility] CenterCalcium Bugdy2920-65-98 06:01:00* Test Item Value Reference Range Interpretation Comments Calcium Level (test code = 61356-3) 8.4 8.4-10.2 [facility] CenterWhite Blood Kaqlu7504-87-07 05:41:00* Test Item Value Reference Range Interpretation Comments White Blood Count (test code = 6690-2) 7.51 4.8-10.8 [facility] CenterRed Blood Jjlwh7007-78-33 05:41:00* Test Item Value Reference Range Interpretation Comments Red Blood Count (test code = 789-8) 3.71 3.6-5.1 [facility] CenterHemoglobin2019-11-30 05:41:00* Test Item Value Reference Range Interpretation Comments Hemoglobin (test code = 01539-1) 9.9 12.0-16.0 L [facility] CenterHematocrit2019-11-30 05:41:00* Test Item Value Reference Range Interpretation Comments Hematocrit (test code = 4544-3) 30.4 34.2-44.1 L [facility] CenterMean Corpuscular Zfcxss8728-61-69 05:41:00* Test Item Value Reference Range Interpretation Comments Mean Corpuscular Volume (test code = 787-2) 81.9 81-99 [facility] CenterMean Corpuscular Jsahabmggz8511-17-85 05:41:00* Test Item Value Reference Range Interpretation Comments Mean Corpuscular Hemoglobin (test code = 785-6) 26.7 28-32 L [facility] Corpuscular Hemoglobin Concent 2019-02-23 05:41:00* Test Item Value Reference Range Interpretation Comments Mean Corpuscular Hemoglobin Concent (test code = 786-4) 32.6 31-35 [facility] CenterRed Cell Distribution Dninn1813-45-69 05:41:00* Test Item Value Reference Range Interpretation Comments Red Cell Distribution Width (test code = 34056-9) 13.9 11.7 -14.4 [facility] CenterPlatelet Fnypr9067-67-91 05:41:00* Test Item Value Reference Range Interpretation Comments Platelet Count (test code = 777-3) 246 140-360 [facility] CenterNeutrophils (%) (Auto)2019-02-23 05:41:00 * Test Item Value Reference Range Interpretation Comments Neutrophils (%) (Auto) (test code = 27373-4) 61.0 38.7-80.0 [facility] CenterLymphocytes (%) (Auto)2019-02-23 05:41:00 * Test Item Value Reference Range Interpretation Comments Lymphocytes (%) (Auto) (test code = 736-9) 28.8 18.0-39.1 [facility] CenterMonocytes (%) (Auto)2019-02-23 05:41:00* Test Item Value Reference Range Interpretation Comments Monocytes (%) (Auto) (test code = 5905-5) 8.1 4.4-11.3 [facility] CenterEosinophils (%) (Auto)2019-02-23 05:41:00 * Test Item Value Reference Range Interpretation Comments Eosinophils (%) (Auto) (test code = 713-8) 1.2 0.0-6.0 [facility] CenterBasophils (%) (Auto)2019-02-23 05:41:00* Test Item Value Reference Range Interpretation Comments Basophils (%) (Auto) (test code = 706-2) 0.4 0.0-1.0 [facility] CenterIM GRANULOCYTES %2019-02-23 05:41:00* Test Item Value Reference Range Interpretation Comments IM GRANULOCYTES % (test code = IM GRANULOCYTES %) 0.5 0.0- 1.0 [facility] CenterNeutrophils # (Auto)2019-02-23 05:41:00* Test Item Value Reference Range Interpretation Comments Neutrophils # (Auto) (test code = 751-8) 4.6 2.1-6.9 [facility] CenterLymphocytes # (Auto)2019-02-23 05:41:00* Test Item Value Reference Range Interpretation Comments Lymphocytes # (Auto) (test code = 61563-8) 2.2 1.0-3.2 [facility] CenterMonocytes # (Auto)2019-02-23 05:41:00* Test Item Value Reference Range Interpretation Comments Monocytes # (Auto) (test code = 742-7) 0.6 0.2-0.8 [facility] CenterEosinophils # (Auto)2019-02-23 05:41:00* Test Item Value Reference Range Interpretation Comments Eosinophils # (Auto) (test code = 711-2) 0.1 0.0-0.4 [facility] CenterBasophils # (Auto)2019-02-23 05:41:00* Test Item Value Reference Range Interpretation Comments Basophils # (Auto) (test code = 704-7) 0.0 0.0-0.[address] [facility] CenterAbsolute Immature Granulocyte (auto 2019-02-23 05:41:00* Test Item Value Reference Range Interpretation Comments Absolute Immature Granulocyte (auto (oc t code = Absolute Immature Granulocyte (auto) 0.04 0-0.1 [facility] CenterTotal Pohyevale1901-91-79 05:39:00* Test Item Value Reference Range Interpretation Comments Total Bilirubin (test code = 1975-2) 0.5 0.2-1.2 [facility] CenterAspartate Amino Transf (AST/SGOT) 2019-02-22 05:39:00* Test Item Value Reference Range Interpretation Comments Aspartate Amino Transf (AST/SGOT) (test code = Aspartate Amino Transf (AST/SGOT)) 17 5-34 [facility] CenterAlanine Aminotransferase (ALT/SGPT) 2019-02-22 05:39:00* Test Item Value Reference Range Interpretation Comments Alanine Aminotransferase (ALT/SGPT) (test code = 1742-6) 12 0-55 [facility] CenterTotal Xgmgakl0643-45-10 05:39:00* Test Item Value Reference Range Interpretation Comments Total Protein (test code = 2885-2) 6.4 6.5-8.1 L [facility] CenterAlbumin2019-11-29 05:39:00* Test Item Value Reference Range Interpretation Comments Albumin (test code = 1751-7) 2.7 3.5-5.0 L [facility] CenterGlobulin2019-11-29 05:39:00* Test Item Value Reference Range Interpretation Comments Globulin (test code = 04347-5) 3.7 2.3-3.5 H [facility] CenterAlbumin/Globulin Hgupw4073-34-87 05:39:00 * Test Item Value Reference Range Interpretation Comments Albumin/Globulin Ratio (test code = 1759-0) 0.7 0.8-2.0 L [facility] CenterAlkaline Pemfrivydjs2678-74-27 05:39:00* Test Item Value Reference Range Interpretation Comments Alkaline Phosphatase (test code = 6768-6) 67 40-150 [facility] CenterAmylase Whgbz4730-00-28 05:39:00* Test Item Value Reference Range Interpretation Comments Amylase Level (test code = 1798-8) 51 25-125 [facility] CenterLipase2019-11-29 05:39:00* Test Item Value Reference Range Interpretation Comments Lipase (test code = 3040-3) 15 78 [facility] CenterAmylase Jbwtf0778-14-07 05:39:00* Test Item Value Reference Range Interpretation Comments Amylase Level (test code = 1798-8) 51 25-125 [facility] CenterLipase2019-11-29 05:39:00* Test Item Value Reference Range Interpretation Comments Lipase (test code = 3040-3) 15 [facility] CenterTriglycerides Ovwii2235-96-09 06:08:00* Test Item Value Reference Range Interpretation Comments Triglycerides Level (test code = 2571-8) 108 0-149 [facility] CenterCholesterol Sldgv3505-87-39 06:08:00* Test Item Value Reference Range Interpretation Comments Cholesterol Level (test code = 2093-3) 150 0-199 Less than 200 mg/dL Low Oxpt044 - 239 mg/dL Borderline Oudo440 m g/dl and greater High Risk [facility] CenterLDL Zattzcegfyg4779-14-27 06:08:00* Test Item Value Reference Range Interpretation Comments LDL Cholesterol (test code = 2089-1) 86 60-130 [facility] CenterHDL Rxyfglwuclf2981-91-55 06:08:00* Test Item Value Reference Range Interpretation Comments HDL Cholesterol (test code = 2085-9) 42 40-60 [facility] CenterCholesterol/HDL Ezykk8792-86-37 06:08:00 * Test Item Value Reference Range Interpretation Comments Cholesterol/HDL Ratio (test code = 9830-1) 3.6 3.0-3.6 [facility] CenterTriglycerides Rsgvv7455-56-82 06:08:00* Test Item Value Reference Range Interpretation Comments Triglycerides Level (test code = 2571-8) 108 0-149 [facility] CenterCholesterol Vpkxa1352-17-66 06:08:00* Test Item Value Reference Range Interpretation Comments Cholesterol Level (test code = 2093-3) 150 0-199 Less than 200 mg/dL Low Mwsg032 - 239 mg/dL Borderline Evcc328 m g/dl and greater High Risk [facility] CenterLDL Zdurpehsnkp6156-95-55 06:08:00* Test Item Value Reference Range Interpretation Comments LDL Cholesterol (test code = 2089-1) 86 60-130 [facility] CenterHDL Lzlpcapxbzs1220-62-47 06:08:00* Test Item Value Reference Range Interpretation Comments HDL Cholesterol (test code = 2085-9) 42 40-60 [facility] CenterCholesterol/HDL Djsyo3738-97-87 06:08:00 * Test Item Value Reference Range Interpretation Comments Cholesterol/HDL Ratio (test code = 9830-1) 3.6 3.0-3.6 [facility] CenterHemoglobin A1c Dkezkfj9645-31-48 05:55:00 * Test Item Value Reference Range Interpretation Comments Hemoglobin A1c Percent (test code = Hemoglobin A1c Percent) 7.6 4.0-7.0 H [facility] CenterHemoglobin A1c Arrltzc6296-47-94 05:55:00 * Test Item Value Reference Range Interpretation Comments Hemoglobin A1c Percent (test code = Hemoglobin A1c Percent) 7.6 4.0-7.0 H [facility] CenterCT ABDOMEN/PELVIS V4020-62-24 01:53:00 [facility] [address] [place] [address] Patient Name: VIDA HOBBS MR #: [id number] : 1945 Age/Sex: 73/F Req #: [id number] Adm Physician: Ordered by: MIRNA VILLANUEVA MD Report #: [id number] Location: ER Room/Bed: Procedure: 1128-[address]/CT ABDOMEN/PELVIS W Exam Date: 02/21/19 Exam Time: 0110 REPORT STATUS: Signed EXAM: CT Abdomen and Pelvis WITH contrast INDICATION: Left-sided abdomin al pain, diarrhea. COMPARISON: CT abdomen/pelvis 08/27/2018. TECHNIQUE: Abd omen and pelvis were scanned utilizing a multidetector helical scanner from th e lung base to the pubic symphysis after administration of IV contrast. [place] l and sagittal reformations were obtained. Routine protocol was performed. Sca n was performed when during portal venous phase. IV CONTRAST: 100 mL of Isovue-370 ORAL CONTRAST: Gastrografin RADIATI ON DOSE: Total DLP: 721.1 mGy*cm Estimated effective dose: (DLP x 0.015 x size factor) mSv COMPLICATIONS: None FINDINGS: LINES and TUBES: None. LOWER THORAX: Unremarkable HEPATOBILIARY: Diff use mild hepatic steatosis. No focal hepatic lesions. There is intra- and ext ra- hepatic biliary dilation likely post cholecystectomy reservoir effect. GALLBLADDER: Status post cholecystectomy. SPLEEN: No splenomegaly. PANCREAS: No focal masses or ductal dilatation. ADRENALS: No adrenal no dules KIDNEYS/URETERS: No evidence of mass, hydronephrosis, or stone. GI TRACT: No evidence of bowel obstruction. There is sigmoid diverticulosis with mild wall thickening and surrounding inflammatory changes (coronal image 41). Degree of inflammatory changes are decreased compared to CT on 08/27/2018. Appendix is normal. There is wall thickening within a short segment of small bowel in the jejunum, as seen on series 2, image 55. There is a possible jejunojejunal intussusception on series 2, image 50. PELVIC ORGANS/BLAD FAMILIA: Unremarkable. LYMPH NODES: No lymphadenopathy. VESSELS: Mild scat tered atherosclerotic calcifications of the abdominal aorta without aneurysm. PERITONEUM / RETROPERITONEUM: No free air or fluid. BONES: No acute os seous abnormality. Mild degenerative changes of the visualized spine. SO FT TISSUES: Unremarkable. IMPRESSION: Acute sigmoid divertic ulitis with mild inflammatory changes. No evidence of perforation or abscess. Mild wall thickening within a short segment jejunal loop could represent f ocal enteritis. Possible small jejunojejunal intussusception. Signed b y: Dr. Tremaine Peñaloza MD on 02/21/2019 2:04 AM Dictated By: TREMAINE PEÑALOZA MD E lectronically Signed By: TREMAINE PEÑALOZA MD on 02/21/19203 Transcribed By: WALDO on 02/21/19203 COPY TO: MIRNA VILLANUEVA MD Urine WBC 2019-02-21 01:13:00* Test Item Value Reference Range Interpretation Comments Urine WBC (test code = 5821-4) 6-10 0-5 H [facility] CenterUrine OTK7396-20-12 01:13:00* Test Item Value Reference Range Interpretation Comments Urine RBC (test code = 75388-4) 6-10 0-5 H [facility] CenterUrine Jnrzhssu7406-54-52 01:13:00* Test Item Value Reference Range Interpretation Comments Urine Bacteria (test code = 65025-8) MODERATE NONE H [facility] CenterUrine Epithelial Dgqdd8292-75-31 01:13:00 * Test Item Value Reference Range Interpretation Comments Urine Epithelial Cells (test code = 08319-2) MODERATE NONE [facility] CenterUrine Devfn4187-94-52 01:12:00* Test Item Value Reference Range Interpretation Comments Urine Color (test code = 5778-6) YELLOW YELLOW [facility] CenterUrine Hrggikm0346-38-55 01:12:00* Test Item Value Reference Range Interpretation Comments Urine Clarity (test code = 90482-9) SL CLOUDY CLEAR [facility] CenterUrine Specific Ifehcxe2539-72-32 01:12:00 * Test Item Value Reference Range Interpretation Comments Urine Specific [place] (test code = 5811-5) 1.015 1.010-1.02 5 [facility] CenterUrine hT4611-34-02 01:12:00* Test Item Value Reference Range Interpretation Comments Urine pH (test code = 98471-8) 6.5 5-7 [facility] CenterU[facility] Leukocyte Nxbyqedu8816-85-14 01:12:00* Test Item Value Reference Range Interpretation Comments Urine Leukocyte Esterase (test code = 87531-4) TRACE NEGATIV E H [facility] CenterUrine Oqtuvvf3542-76-86 01:12:00* Test Item Value Reference Range Interpretation Comments Urine Nitrite (test code = 01362-6) NEGATIVE NEGATIVE [facility] Qlcvnng9539-41-38 01:12:00* Test Item Value Reference Range Interpretation Comments Urine Protein (test code = 51173-0) TRACE NEGATIVE H [facility] Glucose (UA)2019-02-21 01:12:00* Test Item Value Reference Range Interpretation Comments Urine Glucose (UA) (test code = 19231-6) NEGATIVE NEGATIVE [facility] Xcpphmg5497-67-32 01:12:00* Test Item Value Reference Range Interpretation Comments Urine Ketones (test code = 00265-6) NEGATIVE NEGATIVE [facility] Jgxjvvdkavvh9383-14-24 01:12:00* Test Item Value Reference Range Interpretation Comments Urine Urobilinogen (test code = 26934-0) 0.2 0.2-1 [facility] Klcyalztv0897-44-42 01:12:00* Test Item Value Reference Range Interpretation Comments Urine Bilirubin (test code = 1977-8) NEGATIVE NEGATIVE [facility] Ildtn6864-81-88 01:12:00* Test Item Value Reference Range Interpretation Comments Urine Blood (test code = 99950-7) NEGATIVE NEGATIVE [facility] BXX7178-34-80 17:33:00* Test Item Value Reference Range Interpretation Comments Urine WBC (test code = 5821-4) 0-5 0-5 [facility] VYT2490-80-06 17:33:00* Test Item Value Reference Range Interpretation Comments Urine RBC (test code = 71869-8) 0-5 0-5 [facility] Dzxcyjjj3229-52-28 17:33:00* Test Item Value Reference Range Interpretation Comments Urine Bacteria (test code = 50790-8) FEW NONE [facility] Epithelial Ixado3330-00-03 17:33:00 * Test Item Value Reference Range Interpretation Comments Urine Epithelial Cells (test code = 22433-3) MANY NONE [facility] Dwnry0968-49-23 17:28:00* Test Item Value Reference Range Interpretation Comments Urine Color (test code = 5778-6) YELLOW YELLOW [facility] CenterU[facility] Xgrpjew4219-44-00 17:28:00* Test Item Value Reference Range Interpretation Comments Urine Clarity (test code = 90492-9) SL CLOUDY CLEAR [facility] CenterUrine Specific Mwzztph6296-87-88 17:28:00 * Test Item Value Reference Range Interpretation Comments Urine Specific [place] (test code = 5811-5) 1.015 1.010-1.02 5 [facility] CenterU[facility] lW7913-16-10 17:28:00* Test Item Value Reference Range Interpretation Comments Urine pH (test code = 74759-5) 6.5 5-7 [facility] Leukocyte Bzweabzn6598-99-41 17:28:00* Test Item Value Reference Range Interpretation Comments Urine Leukocyte Esterase (test code = 65065-3) MODERATE NEGATIV E [facility] Ulotuqd1517-37-55 17:28:00* Test Item Value Reference Range Interpretation Comments Urine Nitrite (test code = 59825-3) NEGATIVE NEGATIVE [facility] Mpceems0604-67-94 17:28:00* Test Item Value Reference Range Interpretation Comments Urine Protein (test code = 59425-9) NEGATIVE NEGATIVE [facility] Glucose (UA)2018-09-02 17:28:00* Test Item Value Reference Range Interpretation Comments Urine Glucose (UA) (test code = 99800-1) NEGATIVE NEGATIVE [facility] Center[facility] Mbneoyw5450-07-60 17:28:00* Test Item Value Reference Range Interpretation Comments Urine Ketones (test code = 46400-2) TRACE NEGATIVE H [facility] Euqbvecjtxqu8540-74-32 17:28:00* Test Item Value Reference Range Interpretation Comments Urine Urobilinogen (test code = 25700-3) 0.2 0.2-1 [facility] Nxyyyavuv0979-72-46 17:28:00* Test Item Value Reference Range Interpretation Comments Urine Bilirubin (test code = 1977-8) NEGATIVE NEGATIVE [facility] Center[facility] Lnury1969-75-98 17:28:00* Test Item Value Reference Range Interpretation Comments Urine Blood (test code = 39747-8) NEGATIVE [facility]GATIVE [facility] Oowfg2408-54-23 16:53:00* Test Item Value Reference Range Interpretation Comments Sodium Level (test code = 2951-2) 133 136-145 L [facility] CenterPotassium Jlbre8650-39-22 16:53:00* Test Item Value Reference Range Interpretation Comments Potassium Level (test code = 2823-3) 3.3 3.5-5.1 L [facility] CenterChloride Oylmm9647-25-80 16:53:00* Test Item Value Reference Range Interpretation Comments Chloride Level (test code = 2075-0) 98 98-107 [facility] CenterCarbon Dioxide Pmqmo0109-89-96 16:53:00* Test Item Value Reference Range Interpretation Comments Carbon Dioxide Level (test code = 2028-9) 22 22-29 [facility] CenterAnion Vno5935-50-22 16:53:00* Test Item Value Reference Range Interpretation Comments Anion Gap (test code = 48665-6) 16.3 8-16 H [facility] CenterBlood Urea Otkamcnx5541-63-36 16:53:00* Test Item Value Reference Range Interpretation Comments Blood Urea Nitrogen (test code = 3094-0) 7 7-26 [facility] CenterCreatinine2019 16:53:00* Test Item Value Reference Range Interpretation Comments Creatinine (test code = 2160-0) 1.01 0.57-1.11 [facility] CenterBUN/Creatinine Ystdj9565-34-53 16:53:00* Test Item Value Reference Range Interpretation Comments BUN/Creatinine Ratio (test code = 3097-3) 7 6-25 [facility] CenterEstimat Glomerular Filtration Rate 2018-09-02 16:53:00* Test Item Value Reference Range Interpretation Comments Estimat Glomerular Filtration Rate (test code = 542427908) 54 >60 L Ranges were taken from the National Kidney Disease Education Program and the [facility] Kidney Foundation literature.Reference ranges:60 or greater: Gorhuc63-95 ( for 3 consecutive months): Chronic kidney disease 15 or less: Kidney failurePampa Regional Medical CenterGlucose Gkfjb3087-55-31 16:53:00* Test Item Value Reference Range Interpretation Comments Glucose Level (test code = GZS7647) 180 74-118 H [facility] CenterCalcium Ihmgx6260-46-18 16:53:00* Test Item Value Reference Range Interpretation Comments Calcium Level (test code = 98640-6) 9.2 8.4-10.2 [facility] CenterCT BRAIN WU5972-42-45 16:41:00 [facility] [address] [address] Patient Name: VIDA HOBBS MR #: [id number] : 1945 Age/Sex: 73/F Req #: [id number] Adm Physician: Ordered by: NI IRWIN MD Report #: [id number] Location: ER Room/Bed: Procedure: C T/CT BRAIN WO Exam Date: 09/02/18 Exam Time: 1625 REPORT STATUS: Signed History:Head aches Comparison studies: None Technique: Axial images were obtain ed from the skull base to the vertex. Coronal and sagittal images reconstructe d from the axial data. Dose modulation, iterative reconstruction, and/or weigh t based adjustment of the mA/kV was utilized to reduce the radiation dose to as low as reasonably achievable. Intravenous contrast: None Finding s: Scalp/skull: No abnormalities. Extra-axial spaces: No masses. No fluid collections. Brain sulci: Mildly prominent. Ventricles: Mild c ompensatory dilatation. No hydrocephalus. Parenchyma: Confluent hypodens ities throughout the deep and subcortical supratentorial white matter are smal l vessel ischemic changes. No masses, hemorrhage, acute or chronic cortical va scular insults. Sellar/suprasellar region: No abnormalities. Craniocervic al junction: Patent foramen magnum. No Chiari one malformation. Incidental findings: Atherosclerotic calcifications in the carotid siphons . Diffuse c hronic inflammatory opacification of the right sphenoid sinus. Impression: No acute abnormalities. Chronic findings: 1. Mild generalized volume loss. 2. Moderate supratentorial white matter small vessel ischemic changes. Signed by: Dr. Reuben Ray M.D. on 09/02/2018 4:42 PM Dictated By: REUBEN RAY MD, MD 41 Transcribed By: WALDO on 09/02/181641 COPY TO: NI IRWIN MD White Blood Orfgl5640-90-34 16:26:00* Test Item Value Reference Range Interpretation Comments White Blood Count (test code = 6690-2) 13.74 4.8-10.8 H [facility] CenterRed Blood Ovwzs9689-90-46 16:26:00* Test Item Value Reference Range Interpretation Comments Red Blood Count (test code = 789-8) 4.26 3.6-5.1 [facility] CenterHemoglobin2019 16:26:00* Test Item Value Reference Range Interpretation Comments Hemoglobin (test code = 65462-6) 11.7 12.0-16.0 L [facility] CenterHematocrit2019 16:26:00* Test Item Value Reference Range Interpretation Comments Hematocrit (test code = 4544-3) 34.8 34.2-44.1 [facility] CenterMean Corpuscular Tjmfzt4223-77-46 16:26:00* Test Item Value Reference Range Interpretation Comments Mean Corpuscular Volume (test code = 787-2) 81.7 81-99 [facility] CenterMean Corpuscular Zivyuiplsk3278-01-94 16:26:00* Test Item Value Reference Range Interpretation Comments Mean Corpuscular Hemoglobin (test code = 785-6) 27.5 28-32 L [facility] CenterMean Corpuscular Hemoglobin Concent 2018-09-02 16:26:00* Test Item Value Reference Range Interpretation Comments Mean Corpuscular Hemoglobin Concent (test code = 786-4) 33.6 31-35 [facility] CenterRed Cell Distribution Hoftp0222-55-44 16:26:00* Test Item Value Reference Range Interpretation Comments Red Cell Distribution Width (test code = 27370-9) 15.0 11.7 -14.4 H [facility] CenterPlatelet Vlilp0512-49-07 16:26:00* Test Item Value Reference Range Interpretation Comments Platelet Count (test code = 777-3) 315 140-360 [facility] CenterNeutrophils (%) (Auto)2018-09-02 16:26:00 * Test Item Value Reference Range Interpretation Comments Neutrophils (%) (Auto) (test code = 76526-2) 73.6 38.7-80.0 [facility] CenterLymphocytes (%) (Auto)2018-09-02 16:26:00 * Test Item Value Reference Range Interpretation Comments Lymphocytes (%) (Auto) (test code = 736-9) 17.8 18.0-39.1 L [facility] CenterMonocytes (%) (Auto)2018-09-02 16:26:00* Test Item Value Reference Range Interpretation Comments Monocytes (%) (Auto) (test code = 5905-5) 7.4 4.4-11.3 [facility] CenterEosinophils (%) (Auto)2018-09-02 16:26:00 * Test Item Value Reference Range Interpretation Comments Eosinophils (%) (Auto) (test code = 713-8) 0.4 0.0-6.0 [facility] CenterBasophils (%) (Auto)2018-09-02 16:26:00* Test Item Value Reference Range Interpretation Comments Basophils (%) (Auto) (test code = 706-2) 0.2 0.0-1.0 [facility] CenterIM GRANULOCYTES %2018-09-02 16:26:00* Test Item Value Reference Range Interpretation Comments IM GRANULOCYTES % (test code = IM GRANULOCYTES %) 0.6 0.0- 1.0 [facility] CenterNeutrophils # (Auto)2018-09-02 16:26:00* Test Item Value Reference Range Interpretation Comments Neutrophils # (Auto) (test code = 751-8) 10.1 2.1-6.9 H [facility] CenterLymphocytes # (Auto)2018-09-02 16:26:00* Test Item Value Reference Range Interpretation Comments Lymphocytes # (Auto) (test code = 59010-0) 2.5 1.0-3.2 [facility] CenterMonocytes # (Auto)2018-09-02 16:26:00* Test Item Value Reference Range Interpretation Comments Monocytes # (Auto) (test code = 742-7) 1.0 0.2-0.8 H [facility] CenterEosinophils # (Auto)2018-09-02 16:26:00* Test Item Value Reference Range Interpretation Comments Eosinophils # (Auto) (test code = 711-2) 0.1 0.0-0.4 [facility] CenterBasophils # (Auto)2018-09-02 16:26:00* Test Item Value Reference Range Interpretation Comments Basophils # (Auto) (test code = 704-7) 0.0 0.0-0.1 [facility] CenterAbsolute Immature Granulocyte (auto 2018-09-02 16:26:00* Test Item Value Reference Range Interpretation Comments Absolute Immature Granulocyte (auto (oc t code = Absolute Immature Granulocyte (auto) 0.08 0-0.1 [facility] Oscpxea4452-39-98 11:54:00* Test Item Value Reference Range Interpretation Comments Bedside Glucose (test code = 08063-7) 266 70-120 H Meter ID: [id number] [facility] Glucose 2018-09-01 11:54:00* Test Item Value Reference Range Interpretation Comments Bedside Glucose (test code = 37007-5) 266 70-120 H Meter ID: [id number] Regional Medical CenterUrine Culture 2018-08-31 06:53:00* Test Item Value Reference Range Interpretation Comments Urine Culture (test code = 630-4) Organism: PSEUDOMONAS AERUGINOSA [facility] Zlviujd7962-89-54 06:53:00* Test Item Value Reference Range Interpretation Comments Urine Culture (test code = 630-4) Organism: PSEUDOMONAS AERUGINOSA [facility] CenterUrine Ksrkpxy4251-53-33 06:53:00* Test Item Value Reference Range Interpretation Comments Urine Culture (test code = 630-4) No Result Data Provided [facility] Lbomcco9195-21-07 06:53:00* Test Item Value Reference Range Interpretation Comments Urine Culture (test code = 630-4) No Result Data Provided [facility] Hpqbo4716-38-01 08:18:00* Test Item Value Reference Range Interpretation Comments Sodium Level (test code = 2951-2) 135 136-145 L [facility] CenterPotassium Kkfmk4128-22-86 08:18:00* Test Item Value Reference Range Interpretation Comments Potassium Level (test code = 2823-3) 3.8 3.5-5.1 [facility] CenterChloride Pxpoq2343-83-18 08:18:00* Test Item Value Reference Range Interpretation Comments Chloride Level (test code = 2075-0) 105 98-107 [facility] CenterCarbon Dioxide Qymvd1169-97-22 08:18:00* Test Item Value Reference Range Interpretation Comments Carbon Dioxide Level (test code = 2028-9) 23 22-29 [facility] CenterAnion Uzu1410-39-46 08:18:00* Test Item Value Reference Range Interpretation Comments Anion Gap (test code = 60397-0) 10.8 8-16 [facility] CenterBlood Urea Menaojwk3678-86-71 08:18:00* Test Item Value Reference Range Interpretation Comments Blood Urea Nitrogen (test code = 3094-0) 6 7-26 L [facility] CenterCreatinine2019-06-06 08:18:00* Test Item Value Reference Range Interpretation Comments Creatinine (test code = 2160-0) 0.83 0.57-1.11 [facility] CenterBUN/Creatinine Jfdqx1188-39-67 08:18:00* Test Item Value Reference Range Interpretation Comments BUN/Creatinine Ratio (test code = 3097-3) 7 6-25 [facility] CenterEstimat Glomerular Filtration Rate 2018-08-30 08:18:00* Test Item Value Reference Range Interpretation Comments Estimat Glomerular Filtration Rate (test code = 788015819) > 60 >60 Ranges were taken from the National Kidney Disease Education Program and the [facility] Kidney Foundation literature.Reference ranges:60 or greater: Donqon18-18 ( for 3 consecutive months): Chronic kidney disease 15 or less: Kidney failurePampa Regional Medical CenterGlucose Hkqrn2524-55-34 08:18:00* Test Item Value Reference Range Interpretation Comments Glucose Level (test code = JYW2209) 133 74-118 H [facility] CenterCalcium Fyasy1411-43-85 08:18:00* Test Item Value Reference Range Interpretation Comments Calcium Level (test code = 34027-4) 8.7 8.4-10.2 [facility] CenterWhite Blood Kszhi9321-72-86 07:52:00* Test Item Value Reference Range Interpretation Comments White Blood Count (test code = 6690-2) 9.31 4.8-10.8 [facility] CenterRed Blood Ykwme1886-35-33 07:52:00* Test Item Value Reference Range Interpretation Comments Red Blood Count (test code = 789-8) 3.71 3.6-5.1 [facility] CenterHemoglobin2019-06-06 07:52:00* Test Item Value Reference Range Interpretation Comments Hemoglobin (test code = 68004-1) 10.1 12.0-16.0 L [facility] CenterHematocrit2019-06-06 07:52:00* Test Item Value Reference Range Interpretation Comments Hematocrit (test code = 4544-3) 31.1 34.2-44.1 L [facility] CenterMean Corpuscular Frnewl5432-33-38 07:52:00* Test Item Value Reference Range Interpretation Comments Mean Corpuscular Volume (test code = 787-2) 83.8 81-99 [facility] CenterMean Corpuscular Bucojmiaav3491-51-37 07:52:00* Test Item Value Reference Range Interpretation Comments Mean Corpuscular Hemoglobin (test code = 785-6) 27.2 28-32 L [facility] CenterMean Corpuscular Hemoglobin Concent 2018-08-30 07:52:00* Test Item Value Reference Range Interpretation Comments Mean Corpuscular Hemoglobin Concent (test code = 786-4) 32.5 31-35 [facility] CenterRed Cell Distribution Hlyjs7763-39-83 07:52:00* Test Item Value Reference Range Interpretation Comments Red Cell Distribution Width (test code = 54706-4) 14.5 11.7 -14.4 H [facility] CenterPlatelet Stglr7207-70-04 07:52:00* Test Item Value Reference Range Interpretation Comments Platelet Count (test code = 777-3) 248 140-360 [facility] CenterNeutrophils (%) (Auto)2018-08-30 07:52:00 * Test Item Value Reference Range Interpretation Comments Neutrophils (%) (Auto) (test code = 02269-1) 61.3 38.7-80.0 [facility] CenterLymphocytes (%) (Auto)2018-08-30 07:52:00 * Test Item Value Reference Range Interpretation Comments Lymphocytes (%) (Auto) (test code = 736-9) 27.7 18.0-39.1 [facility] CenterMonocytes (%) (Auto)2018-08-30 07:52:00* Test Item Value Reference Range Interpretation Comments Monocytes (%) (Auto) (test code = 5905-5) 7.9 4.4-11.3 [facility] CenterEosinophils (%) (Auto)2018-08-30 07:52:00 * Test Item Value Reference Range Interpretation Comments Eosinophils (%) (Auto) (test code = 713-8) 2.4 0.0-6.0 [facility] CenterBasophils (%) (Auto)2018-08-30 07:52:00* Test Item Value Reference Range Interpretation Comments Basophils (%) (Auto) (test code = 706-2) 0.3 0.0-1.0 [facility] CenterIM GRANULOCYTES %2018-08-30 07:52:00* Test Item Value Reference Range Interpretation Comments IM GRANULOCYTES % (test code = IM GRANULOCYTES %) 0.4 0.0- 1.0 [facility] CenterNeutrophils # (Auto)2018-08-30 07:52:00* Test Item Value Reference Range Interpretation Comments Neutrophils # (Auto) (test code = 751-8) 5.7 2.1-6.9 [facility] CenterLymphocytes # (Auto)2018-08-30 07:52:00* Test Item Value Reference Range Interpretation Comments Lymphocytes # (Auto) (test code = 91435-0) 2.6 1.0-3.2 [facility] CenterMonocytes # (Auto)2018-08-30 07:52:00* Test Item Value Reference Range Interpretation Comments Monocytes # (Auto) (test code = 742-7) 0.7 0.2-0.8 [facility] CenterEosinophils # (Auto)2018-08-30 07:52:00* Test Item Value Reference Range Interpretation Comments Eosinophils # (Auto) (test code = 711-2) 0.2 0.0-0.4 [facility] CenterBasophils # (Auto)2018-08-30 07:52:00* Test Item Value Reference Range Interpretation Comments Basophils # (Auto) (test code = 704-7) 0.0 0.0-0.1 [facility] CenterAbsolute Immature Granulocyte (auto 2018-08-30 07:52:00* Test Item Value Reference Range Interpretation Comments Absolute Immature Granulocyte (auto (oc t code = Absolute Immature Granulocyte (auto) 0.04 0-0.1 [facility] CenterMagnesium Vvyvx2259-54-41 09:27:00* Test Item Value Reference Range Interpretation Comments Magnesium Level (test code = 44521-3) 1.4 1.3-2.1 [facility] CenterMagnesium Jdsaa0350-22-67 09:27:00* Test Item Value Reference Range Interpretation Comments Magnesium Level (test code = 13970-3) 1.4 1.3-2.1 [facility] CenterMagnesium Cparh5297-56-63 09:27:00* Test Item Value Reference Range Interpretation Comments Magnesium Level (test code = 53109-7) 1.4 1.3-2.1 [facility] CenterMagnesium Drxyg1870-29-98 09:27:00* Test Item Value Reference Range Interpretation Comments Magnesium Level (test code = 38692-3) 1.4 1.3-2.1 [facility] CenterLipase2019-06-04 06:22:00* Test Item Value Reference Range Interpretation Comments Lipase (test code = 3040-3) [facility] CenterLipase2019-06-04 06:22:00* Test Item Value Reference Range Interpretation Comments Lipase (test code = 3040-3) 17 [facility] CenterTriglycerides Neelt9300-81-32 09:22:00* Test Item Value Reference Range Interpretation Comments Triglycerides Level (test code = 2571-8) 112 0-149 [facility] CenterCholesterol Wibqa1475-70-67 09:22:00* Test Item Value Reference Range Interpretation Comments Cholesterol Level (test code = 2093-3) 139 0-199 Less than 200 mg/dL Low Guqg467 - 239 mg/dL Borderline Cqyp430 m g/dl and greater High Risk [facility] CenterLDL Mnisfwhylrl9189-11-00 09:22:00* Test Item Value Reference Range Interpretation Comments LDL Cholesterol (test code = 2089-1) 68 60-130 [facility] CenterHDL Yxwgzowkkpd3215-95-02 09:22:00* Test Item Value Reference Range Interpretation Comments HDL Cholesterol (test code = 2085-9) 49 40-60 [facility] CenterCholesterol/HDL Bifrk0218-13-09 09:22:00 * Test Item Value Reference Range Interpretation Comments Cholesterol/HDL Ratio (test code = 9830-1) 2.8 3.0-3.6 L [facility] CenterTriglycerides Ysuhw0284-76-89 09:22:00* Test Item Value Reference Range Interpretation Comments Triglycerides Level (test code = 2571-8) 112 0-149 [facility] CenterCholesterol Fsdfc5679-07-05 09:22:00* Test Item Value Reference Range Interpretation Comments Cholesterol Level (test code = 2093-3) 139 0-199 Less than 200 mg/dL Low Llzh610 - 239 mg/dL Borderline Xflc538 m g/dl and greater High Risk [facility] CenterLDL Zunpmkkvagx8107-34-43 09:22:00* Test Item Value Reference Range Interpretation Comments LDL Cholesterol (test code = 2089-1) 68 60-130 [facility] CenterHDL Aoxplfldxkm5049-24-56 09:22:00* Test Item Value Reference Range Interpretation Comments HDL Cholesterol (test code = 2085-9) 49 40-60 [facility] CenterCholesterol/HDL Jkihi5412-59-43 09:22:00 * Test Item Value Reference Range Interpretation Comments Cholesterol/HDL Ratio (test code = 9830-1) 2.8 3.0-3.6 L [facility] CenterHemoglobin A1c Thbrdaf2221-05-38 09:06:00 * Test Item Value Reference Range Interpretation Comments Hemoglobin A1c Percent (test code = Hemoglobin A1c Percent) 7.7 4.0-7.0 H [facility] CenterHemoglobin A1c Vcbumls2121-59-36 09:06:00 * Test Item Value Reference Range Interpretation Comments Hemoglobin A1c Percent (test code = Hemoglobin A1c Percent) 7.7 4.0-7.0 H [facility] CenterUrine AWB1587-11-81 02:08:00* Test Item Value Reference Range Interpretation Comments Urine WBC (test code = 5821-4) 21-50 0-5 H [facility] CenterUrine ZMR7759-05-17 02:08:00* Test Item Value Reference Range Interpretation Comments Urine RBC (test code = 67457-9) 6-10 0-5 H [facility] CenterUrine Xcyzdoth3141-42-04 02:08:00* Test Item Value Reference Range Interpretation Comments Urine Bacteria (test code = 95305-8) FEW NONE [facility] CenterUrine Epithelial Vrxjb2504-89-93 02:08:00 * Test Item Value Reference Range Interpretation Comments Urine Epithelial Cells (test code = 90568-9) FEW NONE [facility] CenterUrine Zylmq3501-20-59 02:08:00* Test Item Value Reference Range Interpretation Comments Urine Mucus (test code = 8247-9) FEW RARE H [facility] Iebgd8497-96-03 02:08:00* Test Item Value Reference Range Interpretation Comments Urine Mucus (test code = 8247-9) FEW RARE H [facility] Zqfmk1888-26-52 02:08:00* Test Item Value Reference Range Interpretation Comments Urine Mucus (test code = 8247-9) FEW RARE H [facility] Stsfb1737-25-44 02:08:00* Test Item Value Reference Range Interpretation Comments Urine Mucus (test code = 8247-9) FEW RARE H [facility] CenterUrine Qjwyq1642-80-39 02:01:00* Test Item Value Reference Range Interpretation Comments Urine Color (test code = 5778-6) YELLOW YELLOW [facility] Nrhttjn3763-88-40 02:01:00* Test Item Value Reference Range Interpretation Comments Urine Clarity (test code = 52253-0) CLEAR CLEAR [facility] CenterUrine Specific Hlaskjk8689-04-74 02:01:00 * Test Item Value Reference Range Interpretation Comments Urine Specific [place] (test code = 5811-5) <=1.005 1.010-1.02 5 [facility] CenterUrine fD2167-78-44 02:01:00* Test Item Value Reference Range Interpretation Comments Urine pH (test code = 39541-5) 7 5-7 [facility] CenterUrine Leukocyte Iokiecjk4292-46-49 02:01:00* Test Item Value Reference Range Interpretation Comments Urine Leukocyte Esterase (test code = 67955-6) TRACE NEGATIV E H [facility] CenterUrine Erxlybp1767-21-18 02:01:00* Test Item Value Reference Range Interpretation Comments Urine Nitrite (test code = 53816-5) NEGATIVE NEGATIVE [facility] CenterUrine Jnechyw3627-37-80 02:01:00* Test Item Value Reference Range Interpretation Comments Urine Protein (test code = 74887-5) NEGATIVE NEGATIVE [facility] CenterUrine Glucose (UA)2018-08-27 02:01:00* Test Item Value Reference Range Interpretation Comments Urine Glucose (UA) (test code = 95422-2) NEGATIVE NEGATIVE [facility] CenterUrine Xjlxgct9619-63-81 02:01:00* Test Item Value Reference Range Interpretation Comments Urine Ketones (test code = 69675-2) NEGATIVE NEGATIVE [facility] CenterUrine Lielfgbxbbwh6422-49-69 02:01:00* Test Item Value Reference Range Interpretation Comments Urine Urobilinogen (test code = 76615-7) 0.2 0.2-1 [facility] CenterUrine Jxniebmlb7086-69-24 02:01:00* Test Item Value Reference Range Interpretation Comments Urine Bilirubin (test code = 1977-8) NEGATIVE NEGATIVE [facility] CenterUrine Ltjgn3729-68-90 02:01:00* Test Item Value Reference Range Interpretation Comments Urine Blood (test code = 44524-5) NEGATIVE NEGATIVE [facility] CenterCT ABDOMEN/PELVIS C1880-40-18 01:56:00 [address] [address] Patient Name: VIDA HOBBS MR #: [id number] : 1945 Age/Sex: 73/F Req #: [id number] Adm Physician: Ordered by: DESIRE CARDOSO MD Report #: [id number] Location: ER Room/Bed: Procedure: [id number] C T/CT ABDOMEN/PELVIS W Exam Date: Exam Time: REPORT STATUS: Signed EXAM: CT Abdomen and Pelvis WITH contrast INDICATION: diarrhea, abd pain C OMPARISON: None. TECHNIQUE: Abdomen and pelvis were scanned utilizing a multid etector helical scanner from the lung base to the pubic symphysis after admini stration of IV contrast. Coronal and sagittal reformations were obtained. Rout ine protocol was performed. Scan was performed when during portal venous phase . IV CONTRAST: 100 mL of Isovue-370 ORAL CONTRAST: W ater RADIATION DOSE: Total DLP: 675 mGy*cm Estimate d effective dose: (DLP x 0.015 x size factor) mSv COMPLICATIONS: N one FINDINGS: LINES and TUBES: None. LOWER THORAX: Unremarkable HEPATOBILIARY: No focal hepatic lesions. No biliary ductal dilation. GALLBLADDER: No radio-opaque stones or sludge. No wall thickening. SP JUSTINE: No splenomegaly. PANCREAS: No focal masses or ductal dilatation. ADRENALS: No adrenal nodules KIDNEYS/URETERS: Kidneys enhance symme trically. No hydronephrosis. No cystic or solid mass lesions. No stones. [place] ateral extrarenal pelvis. GI TRACT: No abnormal distention, wall thickening , or evidence of bowel obstruction. Diffuse diverticulosis throughout the sig moid colon with associated moderate inflammatory changes surrounding the dista l sigmoid and wall thickening and enhancement consistent with acute diverticul itis. This is better seen on coronal image 48. Appendix is normal. PELVI C ORGANS/BLADDER: Unremarkable. LYMPH NODES: No lymphadenopathy. VESSE LS: Moderate stenosis of the proximal SMA and mild stenosis of the proximal ce liac trunk due to calcified plaques. Mild scattered atherosclerotic calcificat ions of the abdominal aorta without aneurysm. PERITONEUM / RETROPERITONEUM: No free air or fluid. BONES: Mild degenerative changes of the lower thorac ic spine. SOFT TISSUES: Unremarkable. IMPRESSION: Diver ticulosis of the sigmoid colon with associated acute diverticulitis. No perfor ation or abscess. Signed by: Dr. Terri Giles M.D. on 08/27/2018 2:03 AM Dictated By: TERRI GILES MD 2 Transcribed By: WALDO on 202 COPY TO: DESIRE CARDOSO MD Total [id number] 00:31:00* Test Item Value Reference Range Interpretation Comments Total Bilirubin (test code = 1975-2) 0.8 0.2-1.2 [facility]/SGOT[facility] 2018-08-27 00:31:00* Test Item Value Reference Range Interpretation Comments Aspartate Amino Transf (AST/SGOT) (test code = Aspartate Amino Transf (AST/SGOT)) 28 5-34 [facility] (ALT/SGPT) 2018-08-27 00:31:00* Test Item Value Reference Range Interpretation Comments Alanine Aminotransferase (ALT/SGPT) (test code = 1742-6) 21 0-55 [facility] [id number] 00:31:00* Test Item Value Reference Range Interpretation Comments Total Protein (test code = 2885-2) 8.3 6.5-8.1 [facility]2019-06-03 00:31:00* Test Item Value Reference Range Interpretation Comments Albumin (test code = 1751-7) 3.5 3.5-5.0 [facility] 00:31:00* Test Item Value Reference Range Interpretation Comments Globulin (test code = 89272-7) 4.8 2.3-3.5 H [facility]Globulin [id number] 00:31:00 * Test Item Value Reference Range Interpretation Comments Albumin/Globulin Ratio (test code = 1759-0) 0.7 0.8-2.0 L [facility]Al[facility]aline [id number] 00:31:00* Test Item Value Reference Range Interpretation Comments Alkaline Phosphatase (test code = 6768-6) 131 40-150 [facility] [id number] 00:31:00* Test Item Value Reference Range Interpretation Comments Amylase Level (test code = 1798-8) 215 25-125 [facility] [id number] 00:31:00* Test Item Value Reference Range Interpretation Comments Total Bilirubin (test code = 1975-2) 0.8 0.2-1.2 [facility] (AST/SGOT) 2018-08-27 00:31:00* Test Item Value Reference Range Interpretation Comments Aspartate Amino Transf (AST/SGOT) (test code = Aspartate Amino Transf (AST/SGOT)) 28 5-34 [facility] (ALT/SGPT) 2018-08-27 00:31:00* Test Item Value Reference Range Interpretation Comments Alanine Aminotransferase (ALT/SGPT) (test code = 1742-6) 21 0-55 [facility] [id number] 00:31:00* Test Item Value Reference Range Interpretation Comments Total Protein (test code = 2885-2) 8.3 6.5-8.1 [facility]2019-06-03 00:31:00* Test Item Value Reference Range Interpretation Comments Albumin (test code = 1751-7) 3.5 3.5-5.0 [facility]2019-06-03 00:31:00* Test Item Value Reference Range Interpretation Comments Globulin (test code = 30051-8) 4.8 2.3-3.5 H [facility]Globulin [id number] 00:31:00 * Test Item Value Reference Range Interpretation Comments Albumin/Globulin Ratio (test code = 1759-0) 0.7 0.8-2.0 L [facility] CenterAlkaline [id number] 00:31:00* Test Item Value Reference Range Interpretation Comments Alkaline Phosphatase (test code = 6768-6) 131 40-150 [facility] Center[facility] [id number] 00:31:00* Test Item Value Reference Range Interpretation Comments Amylase Level (test code = 1798-8) 215 25-125 [facility]
--- NOTE | 2019-12-30 06:45 | NUR ---
EKG GIVEN TO MD FOR REVIEW
[2019-12-30 07:01] LABS: BASOPHILS % 0.3 % (0.0-1.0); EOSINOPHILS # (AUTO) 0.1 (0.0-0.4); EOSINOPHILS % 1.2 % (0.0-6.0); HEMATOCRIT 32.9 % (34.2-44.1); HEMOGLOBIN 10.5 g/dL (12.0-16.0); LYMPHOCYTES # (AUTO) 2.4 (1.0-3.2); LYMPHOCYTES % 23.3 % (18.0-39.1); MEAN CORPUSCULAR HEMOGLOBIN 26.5 pg (28-32); MEAN CORPUSCULAR HGB CONC 31.9 g/dL (31-35); MEAN CORPUSCULAR VOLUME 83.1 fL (81-99); MONOCYTES # (AUTO) 0.6 (0.2-0.8); MONOCYTES % 6.3 % (4.4-11.3); NEUTROPHILS % 68.3 % (38.7-80.0); PLATELET COUNT 299 x10e3/uL (140-360); RED BLOOD COUNT 3.96 x10e6/uL (3.6-5.1); RED CELL DISTRIBUTION WIDTH 14.2 % (11.7-14.4)
--- NOTE | 2019-12-30 07:20 | Diagnostic Imaging Report ---
Exam: Head CT without contrast History: Weakness Comparison studies: Head CTs of 06/07/2019 20/12/2018. Technique: Axial images were obtained from the skull base to the vertex. Coronal and sagittal images reconstructed from the axial data. Dose modulation, iterative reconstruction, and/or weight based adjustment of the mA/kV was utilized to reduce the radiation dose to as low as reasonably achievable. Radiation dose: Total DLP: 947 mGy*cm. Estimated effective dose: DLP x 0.015 Intravenous contrast: None Findings: Scalp: No abnormalities. Bones: No fractures, blastic or lytic lesions. Brain sulci: Sylvian fissures are mildly prominent. Remaining sulci are of appropriate size for the patient's age. Ventricles: Mild compensatory dilatation. No hydrocephalus. Extra-axial spaces: No masses, no fluid collection. Parenchyma: No mass, acute hemorrhage or acute cortical vascular insult. Ill-defined and confluent hypodensities in the supratentorial white matter are nonspecific but are most compatible with chronic microvascular ischemic changes. Ill-defined hypodensities in the thalami are also nonspecific but may be chronic ischemic changes which are also unchanged. Sellar/suprasellar region: No abnormalities. Craniocervical junction: Patent foramen magnum. No Chiari one malformation. Included paranasal sinuses: Chronic inflammatory changes in the right sphenoid sinus which is opacified with peripheral chronic mucoperiosteal thickening and central calcifications. Left sphenoid sinus is partially opacified and contain secretions, similar to the 06/07/[address] Incidental findings: Atherosclerotic calcifications in the carotid siphons. IMPRESSION: No acute intracranial abnormalities. Chronic findings: 1. Mild generalized parenchymal volume loss. 2. Moderate microvascular ischemic changes. Signed by: Dr. Jared Chin M.D. on 12/30/2019 7:17 AM
[2019-12-30 07:26] LABS: ALBUMIN 3.3 g/dL (3.5-5.0); ALBUMIN/GLOBULIN RATIO 0.7 (0.8-2.0); ANION GAP 14.1 mmol/L (8-16); CALCIUM 8.9 mg/dL (8.4-10.2); CREATININE, SERUM 0.98 mg/dL (0.57-1.11); POTASSIUM 4.1 mmol/L (3.5-5.1)
[2019-12-30 07:29] LABS: CREATINE KINASE 39 IU/L (29-168)
[2019-12-30 07:49] LABS: CLARITY,URINE CLEAR (CLEAR); COLOR,URINE YELLOW (YELLOW)
[2019-12-30 07:50] LABS: LEUKOCYTE ESTERASE ,URINE SMALL (NEGATIVE)
--- NOTE | 2019-12-30 07:50 | Diagnostic Imaging Report ---
EXAMINATION: CHEST SINGLE (PORTABLE) INDICATION: Weakness COMPARISON: Chest x-ray 06/07/2019 FINDINGS: TUBES and LINES: None. LUNGS: Normal lung volumes. Lungs are clear. No consolidations. PLEURA: No pleural effusion or pneumothorax. HEART AND MEDIASTINUM: Cardiac size is mildly enlarged. Aortic calcifications. BONES AND SOFT TISSUES: No acute osseous lesion. Soft tissues are unremarkable. Degenerative changes UPPER ABDOMEN: No free air under the diaphragm. IMPRESSION: Mild cardiomegaly. Signed by: Henry Daly DO on 12/30/2019 7:46 AM
[2019-12-30 07:51] LABS: BILIRUBIN,URINE NEGATIVE (NEGATIVE); KETONES,URINE NEGATIVE (NEGATIVE); NITRITE,URINE NEGATIVE (NEGATIVE); PROTEIN,URINE DIPSTICK TRACE (NEGATIVE); URINE UROBILINOGEN 0.2 mg/dL (0.2 - 1)
[2019-12-30 07:52] LABS: BACTERIA,URINE RARE /HPF; EPITHELIAL CELLS,URINE FEW /LPF
--- NOTE | 2019-12-30 09:11 | Diagnostic Imaging Report ---
Exam: Head CT without contrast History: Dizziness, weakness Comparison studies: Same-day head CT 12/30/2019 at 7:03 AM and head CTs of 06/07/2019 and 09/02/2018. Technique: Axial images were obtained from the skull base to the vertex. Coronal and sagittal images reconstructed from the axial data. Dose modulation, iterative reconstruction, and/or weight based adjustment of the mA/kV was utilized to reduce the radiation dose to as low as reasonably achievable. Radiation dose: Total DLP: 921.4 mGy*cm. Estimated effective dose: DLP x 0.015 Intravenous contrast: None Findings: Scalp: No abnormalities. Bones: No fractures, blastic or lytic lesions. Brain sulci: Sylvian fissures are mildly prominent. Remaining sulci are of appropriate size for the patient's age. Ventricles: Mild compensatory dilatation. No hydrocephalus. Extra-axial spaces: No masses, no fluid collection. Parenchyma: No mass, acute hemorrhage or acute cortical vascular insult. Ill-defined and confluent hypodensities in the supratentorial white matter are nonspecific but are most compatible with chronic microvascular ischemic changes. Ill-defined hypodensities in the thalami are also nonspecific but may be chronic ischemic changes and/or also unchanged. Sellar/suprasellar region: No abnormalities. Craniocervical junction: Patent foramen magnum. No Chiari one malformation. Included paranasal sinuses: Chronic inflammatory changes in the right sphenoid sinus which is opacified with peripheral mucoperiosteal thickening and contains central calcifications. Left sphenoid sinus is partially opacified and contains secretions, similar to the 06/07/[address] Chronic mucoperiosteal thickening present in the partially imaged right maxillary sinus. Mild scattered nonspecific mucosal thickening present in the right ethmoid air cells. Incidental findings: Atherosclerotic calcifications in the carotid siphons and in the proximal basilar artery. IMPRESSION: No acute intracranial abnormalities or changes from the prior head CT on 12/30/2019 at 7:03 AM. Chronic findings: 1. Mild generalized parenchymal volume loss. 2. Moderate microvascular ischemic changes. Signed by: Dr. Jared Chin M.D. on 12/30/2019 9:08 AM
[2019-12-30] MEDS ORDERED: MECLIZINE HCL25 MG PO (10:17)
[2019-12-30] MEDS ORDERED: MACROBID 100 M100 MG PO (10:23)
[2019-12-30 10:50] VITALS: BP 158/75
== END 2019-12-30 10:59 | disposition home or self-care (01) ==
LOC: ER 06:23
DX: R42 Dizziness and giddiness (principal); I44.7 Left bundle-branch block, unspecified; R53.1 Weakness; R94.31 Abnormal electrocardiogram [ECG] [EKG]
CPT/HCPCS: 36415; 70450; 71045; 80053; 81001; 82550; 82553; 83690; 83880; 84484; 85025; 93005; 99284

== ENCOUNTER 2020-01-28 18:58 | Emergency (ER) | payer MEDICARE ==
[~2020-01-28] VITALS: Ht 152.4 cm; Wt 86.6 kg
[~2020-01-28 18:58] MED LIST changes: +MACROBID 100 M100 MG PO; +MECLIZINE HCL25 MG PO
--- NOTE | 2020-01-28 19:38 | Emergency Department Note ---
History of Present Illnes History of Present Illness Chief Complaint: Hypertension History of Present Illness This is a 74 year old female Chief Complaint Comment 74 Y/O FEMALE PT AAXO3 PRESENTS TO THE ER C/O ELEVATED BP ; PT STATES SHE TOOK HER BP AT HOME WITH SYSTOLIC READING "185"; PT STATES SHE TOOK 50MG OF HYDRALAZINE AT 1700 AND THEN ANOTHER 50MG AT 1800; NO NEURO DEFICITS NOTED; PT DENIES CP OR SOB; DENIES TINNITUS, BLURRED VISION, NELSON, OR DIZZINESS; NAD NOTED AT THIS TIME; Historian: Patient Arrival Mode: Car Ip Litigation Paralegal Required: No Onset (how long ago): unknown Location: blood Quality: pressure Radiation: Reports non-radiation Severity: unable to specify Onset quality: unable to specify Duration (how long): day(s) (1) Timing of current episode: constant Progression: unchanged Chronicity: chronic Context: Denies recent illness, Denies recent surgery Relieving factors: none Exacerbating factors: none Associated symptoms: Reports denies other symptoms Treatments prior to arrival: none Past Medical/Family History Physician Review I have reviewed the patient's past medical and family history. Any updates have been documented here. Past Medical History Recent Fever: No Clinical Suspicion of Infectio: No New/Unexplained Change in Ment: No Past Medical History: Hypertension, Diabetes, Hyperlipedemia Other Medical History: DIVERTICULITIS GOUT PANCREATITIS Past Surgical History: Cholecysctectomy, Tubal Ligation, Other Surgery: C-SECTIONS Other Last Tetanus: UTD Review of Systems Review of Systems Constitutional: Reports no symptoms EENTM: Reports no symptoms Cardiovascular: Reports no symptoms Respiratory: Reports no symptoms Gastrointestinal: Reports no symptoms Genitourinary: Reports no symptoms Musculoskeletal: Reports no symptoms Integumentary: Reports no symptoms Neurological: Reports no symptoms Psychological: Reports no symptoms Endocrine: Reports no symptoms Hematological/Lymphatic: Reports no symptoms Physical Exam Related Data Allergies: Coded Allergies: aspirin (Verified Allergy, Severe, 12/30/19) RASH caffeine (Verified Allergy, Severe, 12/30/19) RASH Triage Vital Signs Vital Signs Date Time Temp Pulse Resp B/P (MAP) Pulse Ox O2 Delivery O2 Flow Rate FiO2 01/28/20 19:23 98.1 102 20 179/79 99 Room Air Vital signs reviewed: Yes Physical Exam CONSTITUTIONAL Constitutional: Present well-developed, Present well-nourished HENT HENT: Present normocephalic, Present atraumatic, Present oropharynx clear/moist, Present nose normal HENT L/R: Present left ext ear normal, Present right ext ear normal EYES Eyes: Reports PERRL, Reports conjunctivae normal NECK Neck: Present ROM normal PULMONARY Pulmonary: Present effort normal, Present breath sounds normal CARDIOVASCULAR Cardiovascular: Present regular rhythm, Present heart sounds normal, Present capillary refill normal, Present normal rate GASTROINTESTINAL Abdominal: Present soft, Present nontender, Present bowel sounds normal GENITOURINARY Genitourinary: Present exam deferred SKIN Skin: Present warm, Present dry MUSCULOSKELETAL Musculoskeletal: Present ROM normal NEUROLOGICAL Neurological: Present alert, Present oriented x 3, Present no gross motor or sensory deficits PSYCHOLOGICAL Psychological: Present mood/affect normal, Present judgement normal Results Laboratory Lab results reviewed: Yes Procedures 12 Lead ECG Interpretation ECG Interpretation : Ip Litigation Paralegal: Interpreted by ED physician Date: Jan 28, 2020 Prior ECG tracings: reviewed Rhythm: sinus rhythm Rate: normal QRS axis: normal Conduction: left bundle branch block ST segments normal: Yes T waves normal: Yes Clinical Impression: abnormal ECG Assessment & Plan Medical Decision Making MDM 74 y.o F presents for asymptomatic HTN. Noticed today. is on hydralazine PRN. Exam benign. W/u shows no end organ dysfunction. Doubt emergent process at this time. I discussed results patient as well as expected disease time course and management. They will follow up with their primary care provider or return to the emergency department for new or worsening symptoms. Patient's appropriate for discharge. Reassessment Reassessment time: 20:56 Reassessment Well appearing, NAD Assessment & Plan Final Impression: (1) Hypertension Depart Disposition: HOME, SELF-CARE Last Vital Signs Date Time Temp Pulse Resp B/P (MAP) Pulse Ox O2 Delivery O2 Flow Rate FiO2 01/28/20 19:23 98.1 102 20 179/79 99 Room Air Home Meds Active Scripts Nitrofurantoin Monohyd/M-Cryst (MACROBID 100 MG CAPSULE) 100 Mg Capsule, 100 MG PO BIDWM, #10 CAP Prov:COLLEEN MASTERS MD 12/30/19 Meclizine Hcl (MECLIZINE HCL) 25 Mg Tablet, 1 TAB PO TID for dizziness, #20 Prov:COLLEEN MASTERS MD 12/30/19 Cephalexin Monohydrate (KEFLEX) 500 Mg Capsule, 500 MG PO Q12H, #10 Prov:AMAIRANI CHANCE MD 06/09/19 Hydralazine Hcl (HYDRALAZINE HCL) 25 Mg Tab, 50 MG PO TID for 30 Days, TAB Prov:AMAIRANI CHANCE MD 09/01/18 Famotidine (FAMOTIDINE) 20 Mg Tab, 20 MG PO BIDAC for 30 Days, TAB Prov:AMAIRANI CHANCE MD 09/01/18 Reported Medications Trazodone Hcl (TRAZODONE HCL) 50 Mg Tablet, 50 MG PO HS, #30 TAB 02/21/19 Insulin Human Nph (HUMULIN N) 100 Units/Ml Ml, 70 UNITS SQ DAILY 08/27/18 Insulin Human Nph (HUMULIN N) 100 Units/Ml Ml, 50 UNITS SQ HS 08/27/18 Glimepiride (GLIMEPIRIDE) 4 Mg Tablet, 4 MG PO DAILY 08/27/18 Benzonatate (BENZONATATE) 100 Mg Capsule, 100 MG PO Q12H PRN for COUGH 08/27/18 Atorvastatin Calcium (ATORVASTATIN CALCIUM) 40 Mg Tablet, 40 MG PO HS, #30 TAB 08/27/18 Metformin Hcl (METFORMIN HCL) 1,000 Mg Tablet, 1000 MG PO BID 01/28/12 Lisinopril (LISINOPRIL) 5 Mg Tablet, 20 MG PO BID 01/28/12 CRISELDA GARCÍA MD Jan 28, 2020 19:38
[2020-01-28 19:50] LABS: BASOPHILS % 0.3 % (0.0-1.0); EOSINOPHILS # (AUTO) 0.1 (0.0-0.4); EOSINOPHILS % 1.1 % (0.0-6.0); HEMATOCRIT 31.7 % (34.2-44.1); HEMOGLOBIN 10.2 g/dL (12.0-16.0); LYMPHOCYTES # (AUTO) 2.6 (1.0-3.2); LYMPHOCYTES % 24.3 % (18.0-39.1); MEAN CORPUSCULAR HEMOGLOBIN 26.2 pg (28-32); MEAN CORPUSCULAR HGB CONC 32.2 g/dL (31-35); MEAN CORPUSCULAR VOLUME 81.5 fL (81-99); MONOCYTES # (AUTO) 0.9 (0.2-0.8); NEUTROPHILS # (AUTO) 7.1 (2.1-6.9); NEUTROPHILS % 65.9 % (38.7-80.0); PLATELET COUNT 278 x10e3/uL (140-360); RED BLOOD COUNT 3.89 x10e6/uL (3.6-5.1); RED CELL DISTRIBUTION WIDTH 14.6 % (11.7-14.4)
[2020-01-28 20:09] LABS: ALBUMIN 3.2 g/dL (3.5-5.0); ALBUMIN/GLOBULIN RATIO 0.7 (0.8-2.0); CALCIUM 8.9 mg/dL (8.4-10.2); CREATININE, SERUM 1.04 mg/dL (0.57-1.11)
[2020-01-28 20:26] LABS: CLARITY,URINE CLEAR (CLEAR); COLOR,URINE YELLOW (YELLOW)
[2020-01-28 20:27] LABS: BILIRUBIN,URINE NEGATIVE (NEGATIVE); KETONES,URINE NEGATIVE (NEGATIVE); LEUKOCYTE ESTERASE ,URINE SMALL (NEGATIVE); NITRITE,URINE NEGATIVE (NEGATIVE); PROTEIN,URINE DIPSTICK 2+ (NEGATIVE); URINE UROBILINOGEN 0.2 mg/dL (0.2 - 1)
[2020-01-28 20:32] LABS: BACTERIA,URINE FEW /HPF; EPITHELIAL CELLS,URINE FEW /LPF; RBC,URINE 0-5 /HPF (0-5)
[2020-01-28 21:11] VITALS: BP 143/63
--- OUTSIDE RECORDS SUMMARY | 2020-01-30 19:14 | XMS REPORT | Clinical Summary ---
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
--- OUTSIDE RECORDS SUMMARY | 2020-01-30 19:15 | XMS REPORT | Continuity of Care Document ---
Author Author [facility] Organization [facility] t Address [address] [place] [address] Phone Unavailable Care Team Providers Care Wage And Salary Administrator Name Role Phone FELIPA PUGH, MD DENNIS PCP [employer]LE[employer] MASTERS Attphys Unavailable Arleen Loo Attphys LO WADE Attphys Unavailable Rhoda Koenig Attphys Chase VILLANUEVA Attphys Unavailable Nicole IRWIN Attphys Unavailable Rhoda CARDOSO Attphys Unavailable Payers Payer Name Policy Type Policy Number Effective Date Expiration Date [facility]oda Smith [facility] [id number] 2017 00:00:00 [facility] [id number] 2016 00:00:00 [facility] Medicare A & B [id number] [facility] Problems Condition Name Condition Details Condition Category Status Onset Date Resolution Date Last Treatment Date Treating Clinician Comments Source DX: K57.30=DIVERTICULOSIS OF LARGE INTES DX: K57.30=DIVERTICULOSIS OF LARGE INTES Active 06/03/2019 [facility] Active 2019-06-03 00:00:00 2019-06-07 06:51:00 Amado Fowler R05 - COUGH R05 - COUGH Active 02/15/2019 [facility] [place] Diagnosis Active 2019-02-15 00:01:00 2019-05-09 18:30:00 Amado Fowler Z12.31 - ENCNTR SCREEN MAMMOGRAM FOR MA Z12.31 - ENCNTR SCREEN MAMMOGRAM FOR MA Active 02/06/2018 MH [facility] [place] Diagnosis Active 2018-02-06 00:01:00 2018-07-06 16:51:00 M vianey Fowler V72.83 - PRE-OP EXAM NEC V72. 83 - PRE-OP EXAM NEC Active 12/08/2017 MH [facility] [place] Diagnosis Active 2017-12-08 00:01:00 2017-12-11 09:33:00 Amado Fowler History of colonoscopy 03/2017 History of colonoscopy 03/2017 Disease Active 2017-11-29 00:00:00 Overview: No further colonoscopy desired by patient. [facility] Inadequately controlled diabetes mellitus Inadequately controlled diabetes mellitus Disease Active 2016-08-30 00:00:00 [facility] History of diverticulitis History of diverticulitis Disease Ac tive 2016-07-07 00:00:00 [facility] Essential hypertension: on meds /poor co ntrol: low salt diet and exercise// f/u with PCP in 2 wk 05/13 Essential hypertension: on meds /poor co ntrol: low salt diet and exercise// f/u with PCP in 2 wk 05/13 Disease Active 2016-05-24 00:00:00 [facility] Poorly controlled diabetes mellitus Poorly controlled diabetes m ellitus Disease Active 2015-10-01 00:00[facility]00 [facility] Fall Fall Disease Active 2014-03-04 00:00:00 [facility] NS (nuclear sclerosis) NS (nuclear sclerosis) Disease Active 2013-11-29 00:00:00 [facility] Diabetes mellitus type 2 without retinopathy Diabetes mellitus type 2 without retinopathy Disease Active 2013-11-29 00:00:00 [facility] Hyperopia with astigmatism and presbyopia Hyperopia wi th astigmatism and presbyopia Disease Active 2013-11-29 00:00:00 [email or web address] Uncontrolled type II diabetes mellitus Uncontrolled type II diabetes mellitus Disease Active 2009-05-12 00:00:00 [facility] Hyperlipidemia LDL goal < 100 Hyperlipidemia LDL goal < 100 Disease Active 2008-12-23 00:00:00 [facility] ealth Screening Screening Disease Active 2008-12-23 00:00:00 [facility] HTN (hypertension) HTN (hypertension) Disease Active 2008-03-25 00:00:0 0 [facility] Family history of diabetes mellitus Family history of diabetes m ellitus Disease Active 2008-02-05 00:00:00 [facility] Elevated LFT's Elevated LFT's Disease Active 2008-02-05 00:00:00 [facility] Diverticulitis Diverticulitis Disease Active 2007-09-05 00:00:00 [facility] Diverticuloses Diverticuloses Disease Active 2007-09-05 00:00:00 [facility] Pancreatitis Pancreatitis Problem Active [facility] Vomiting Vomiting Problem Active [facility] Dizziness Problem Active [facility] Left bundle branch block (LBBB) Problem Active [facility] Encounter for screening mammogram for malignant neopla sm of breast Encounter for screening mammogram for malignant neoplasm of breast 03/07/2018 09/19/2018 SUHA Benitesa Problem 2018-03-07 05: 57:28 2018-09-19 11:41:05 2018-09-19 11:41:05 Amado mustafa Encounter for preprocedural cardiovascular examination Encounter for preprocedural cardiovascular examination 12/16/2017 06/30/2018 [place] Problem 2017-12-16 04:56:02 2018-06-30 13:11:01 2018-06-30 13:11:01 Amado Fowler Allergies, Adverse Reactions, Alerts Allergy Name Allergy Type Status Severity Reaction(s) Onset Date Inacti ve Date Treating Clinician Comments Source Caffeine Allergy to substance Active Severe 2019-12-30 00:00:00 [facility] Aspirin Allergy to substance Active Severe 2019-12-30 00:00:00 [facility] Family History Family Member Diagnosis Comments Start Date Stop Date Source Natural brother Stroke Tor[facility]io He alth Natural mother Diabetes Toribio Hea lt Natural mother Heart Toribio Hea [facility] Natural mother Hypertension [facility] Social History Social Habit Start Date Stop Date Quantity Comments Source Sex Assigned At [facility] Alcohol intake 2018-08-29 00:00:00 2018-08-29 00:00:00 Current non-drinker of alcohol (finding) [facility] History SDOH Food Worry 2017-11-02 00:00:00 2017-11-02 00:00:00 1 [facility] History SDOH Food Scarcity 2017-11-02 00:00:2017-11-02 00:00:00 1 [facility] Smoking Status Start Date Stop Date Source Never smoker [facility] Medications Ordered Medication Name Filled Medication Name Start Date Stop Da te Current Medication? Ordering Clinician Indication Dosage Frequency Signature (SIG) Comments Components Source Nitrofurantoin Monohyd/M-Cryst (Macrobid 100 Mg Capsul e) 100 Mg CAPSULE Nitrofurantoin Monohyd/M-Cryst (Macrobid 100 Mg Capsule) 100 Mg CAPSULE 2019-12-30 10:23:00 Yes 100 Twice Daily With M eals [facility] Meclizine Hcl Meclizine Hcl 2019-12-30 10:17:00 Yes 1 Three Times A Day for Dizziness [facility] Cephalexin Monohydrate (Keflex) 500 Mg CAPSULE Cephale janette Monohydrate (Keflex) 500 Mg CAPSULE 2019 04:34:00 Yes 500 Every 12 Hours [facility] Ciprofloxacin Hcl (Cipro) 500 Mg TABLET Ciprofloxacin Hcl (C ipro) 500 Mg TABLET 2018-09-01 10:26:00 2019-02-21 00:00:00 No 500 Every 12 Hours [facility] Metronidazole (Flagyl) 500 Mg TABLET Metronidazole (Flagyl) 500 Mg TABLET 2018-09-01 10:26:00 2019-02-21 00:00:00 No 500 Three Times A Day [facility] Famotidine Famotidine 2018-09-01 10:13:00 Yes 20 Twice Daily Before Meals [facility] Hydralazine Hcl Hydralazine Hcl 2018-09-01 10:13:00 Yes 50 Three Times A Day [facility] insulin aspart U-100 (NOVOLOG FLEXPEN U-100 INSULIN) 100 uni t/mL pen 2017-11-02 00:00:00 Yes Uncontrolled type 2 diabetes mellitus without complication, with long-term current use of insulin 4U Inject 4 Units under the skin daily before lunch. [facility] pen needle, diabetic (TRUEPLUS PEN NEEDLE) 31 gauge x 3/16" needles 2017-11-02 00:00:00 Yes Uncontrolled typ e 2 diabetes mellitus without complication, with long-term current use of insulin QD Inject under the ski n daily. [facility] metFORMIN (GLUCOPHAGE) 500 mg tablet 2017-08-04 00:00:00 Yes Inadequately controlled diabetes mellitus 1000mg Take 2 tabl ets by mouth 2 times daily (with meals). [facility] ergocalciferol (VITAMIN D2) 50,000 unit capsule 2017-05-26 0 0:00:00 Yes Vitamin D deficiency 75040R Take 1 capsule by mouth weekly. [facility] insulin NPH (NOVOLIN N NPH U-100 INSULIN) 100 unit/mL inject ion 2017-04-19 00:00:00 Yes Inject 70 units under the skin in the morning and 60 units in the evening after meal. [facility] lisinopril-hydrochlorothiazide (ZESTORETIC) 20-12.5 mg per t ablet 2017-04-19 00:00:00 Yes Essential hypertension 1{tbl} QD Take 1 t ablet by mouth daily. [facility] atorvastatin (LIPITOR) 40 mg tablet 2017-04-19 00:00:00 Yes Hyperlipidemia, unspecified hyperlipidemia type 40mg Take 1 tablet by mouth at bedtime nightly. [facility] blood glucose test strips 2017-04-19 00:00:00 Yes 1{each} Q.5D Check blood glucose 2 times daily. [facility] th lancets 28 gauge 2017-04-19 00:00:00 Yes Q.5D by MISCELLANEOUS route 2 times daily. [facility] INSULIN SYRINGE 1mL 30GX5/16" (MONOJECT ULTRACOMFORT INSULIN SYR 1ML 30GX5/16") syringe-needle 2017-04-19 00:00:00 Yes I nadequately controlled diabetes mellitus Q.5D Use to inject medica tion 2 times daily. Use a new syringe each time. [facility] blood glucose meter 2015-10-16 00:00:00 Yes DM (d iabetes mellitus) Use as directed. [facility] Atorvastatin Calcium Atorvastatin Calcium Yes 40 Bedtime [facility] Benzonatate Benzonatate Yes 100 Every 12 Hours as needed for Cough [facility] Glimepiride Glimepiride Yes 4 Daily [facility] Insulin Human Nph (Humulin N) 100 Units/Ml ML Insulin Human Nph (Humulin N) 100 Units/Ml ML Yes 50 Bedtime [facility] Insulin Human Nph (Humulin N) 100 Units/Ml ML Insulin Human Nph (Humulin N) 100 Units/Ml ML Yes 70 Daily [facility] Lisinopril Lisinopril Yes 20 Twice A Day [facility] Metformin Hcl Metformin Hcl Yes 1000 Twice A Day [facility] Trazodone Hcl Trazodone Hcl Yes 50 Bedtime [facility] Acetaminophen/Codeine Phosphate (Tylenol # 3*) 1 Ea TA B Acetaminophen/Codeine Phosphate (Tylenol # 3*) 1 Ea TAB 2019-02-21 00:00:00 No 1 Every 6 Hours as needed for Moderate Pain (4-6) [facility] Ondansetron Hcl Ondansetron Hcl 2019-02-21 00:00:00 No 4 Every 6 Hours as needed for Nausea And Vomiting [facility] Aspirin Aspirin 2018-08-27 00:00:00 No 81 Daily [facility] Insulin Regular, Human (Humulin R) 100 Unit/1 Ml VIAL Insulin Regular, Human (Humulin R) 100 Unit/1 Ml VIAL 2018-08-27 00:00:00 No [facility] Meclizine Hcl Meclizine Hcl 2018-08-27 00:00:00 No 25 Every 6 Hours as needed for Nausea And Vomiting [facility] Nph, Human Insulin Isophane (Novolin N) 100 Unit/1 Ml VIAL Nph, Human Insulin Isophane (Novolin N) 100 Unit/1 Ml VIAL 2018-08-27 00:00:00 No 50 Twice A Day [facility] Lisinopril/Hydrochlorothiazide (Lisinopril-Hctz 10-12. 5 Mg Tab) 1 Each TABLET Lisinopril/Hydrochlorothiazide (Lisinopril-Hctz 10-12.5 Mg Tab) 1 Each TABLET 2016-04-20 00:00:00 No [facility] Hydrochlorothiazide Hydrochlorothiazide 2014-03-04 00:00:00 No 25 Daily [facility] Pravastatin Sodium Pravastatin Sodium 2014-03-04 00:00:00 No 20 Daily [facility] Immunizations Ordered Immunization Name Filled Immunization Name Date Status Comments Source Influenza Vaccine, Seasonal, Injectable 2017-01-10 00:00:0 0 Completed [facility] Herpes Zoster Vaccine In Clinic 2016-07-07 00:00:00 Anuradha rae [facility] Pneumococcal 13-valent conj 0.5 mL injection 2016-02-25 00 :00:00 Completed [facility] Influenza Vaccine 2016-02-25 00:00:00 Completed [facility] Influenza Vaccine 2015-02-12 00:00:00 Completed [facility] Tdap Tetanus, diphtheria, acellular pertussis Vaccine 2014-05-15 00:00:00 Completed [facility] Influenza Vaccine 2014-01-22 00:00:00 Completed [facility] Influenza Vaccine 2009-01-20 00:00:00 [facility] PPV 23 Pneumococcal Polysaccaride 2008-12-23 00:00:00 Comp leted [facility] Vital Signs Vital Name Observation Time Observation Value Comments Source Body Temperature 2019-12-30 10:50:00 98.7 [degF] [facility] Weight 2019-12-30 06:29:00 191 [lb_av] [facility] BMI (Body Mass Index) 2019-12-30 06:29:00 37.3 kg/m2 [facility] Procedures Procedure Date / Time Performed Performing Clinician Cecy sukhwinder Computed tomography of brain without radiopaque contrast 2019-12 00:00:00 [facility] Computed tomography of brain without radiopaque contrast 202 00:00:00 LO WADE [facility] X-ray of chest, two views 2019-06-07 00:00:00 LO WADE I [facility] Plan of Care Planned Activity Planned Date Details Comments Source Future Scheduled Test 2018-11-02 00:00:00 DM Foot Exam (Year ly) [code = DM Foot Exam (Yearly)] [facility] Scheduled Test 2018-10-04 00:00:00 Hemoglobin A1c aurora surement (procedure) [code = 39813397] [facility] Scheduled Test 2018-05-04 00:00:00 Breast Cancer Scrn (Yearly) [code = Breast Cancer Scrn (Yearly)] [facility] Scheduled Test 2018-04-19 00:00:00 DM Retinal Exam (Y early) [code = DM Retinal Exam (Yearly)] [facility] Future Scheduled Test 2018-04-07 00:00:00 Screening for david gnant neoplasm of colon (procedure) [code = 031747117] [facility] Instructions Vertigo [facility] Encounters Start Date/Time End Date/Time Encounter Type Admission Type Attendi [facility] Care Department Encounter ID Source 2019-12-30 06:23:00 2019-12-30 10:59:00 Departed Emergency Room 1 COLLEEN MASTERS [facility] [id number] [facility] 2019-09-26 13:22:00 2019-09-26 23:59:00 Outpatient Arleen Metcalf [facility] [id number] 2019-06-07 16:05:00 2019 12:05:00 Discharged Inpatient (obs) 1 LO WADE [facility] [id number] [facility] 2019-06-07 06:39:00 2019-06-07 23:59:00 Outpatient Martinez Koenig [facility] [id number] 2019-06-07 06:39:00 2019-06-07 06:39:00 Outpatient [facility] [address] [place] [address] 2019-02-21 02:25:00 2019-02-23 17:47:00 Discharged Inpatient 1 MIRNA VILLANUEVA [facility] [id number] [facility] 2018-10-31 07:57:00 2018-10-31 23:59:00 Outpatient Arleen Metcalf [facility] [id number] 2018-09-02 15:44:00 2018-09-02 19:20:00 Departed Emergency Room 1 NKECHINI BLUNT [facility] [id number] [facility] 2018-08-27 06:58:00 2018-09-01 15:31:00 Discharged Inpatient 1 JANAEDESIRE LLANOS [facility] [id number] [facility] 2018-03-01 08:04:00 2018-03-01 23:59:00 Outpatient Riki Ran Arleen [facility] [id number] 2018-02-21 00:00:00 2018-02-21 00:00:00 Outpatient [facility] [id number] [facility] 2017-12-11 09:23:00 2017-12-11 23:59:00 Outpatient Albertjonybear Ran Arleen [facility] [id number] 2017-11-13 00:00:00 2017-11-13 00:00:00 Outpatient [facility] [id number] [facility] 2017-11-13 00:00:00 2017-11-13 00:00:00 Outpatient [facility] [id number] [facility] 2017-11-02 13:10:04 2017-11-02 13:10:04 Outpatient [facility] [id number] [facility] 2017-11-02 00:00:00 2017-11-02 00:00:00 Outpatient [facility] [id number] [facility] 2017-10-31 00:00:00 2017-10-31 00:00:00 Outpatient [facility] [id number] [facility] 2017-10-04 08:34:33 2017-10-04 08:34:33 Outpatient [facility] [id number] [facility] 2017-08-04 16:00:12 2017-08-04 16:00:12 Outpatient [facility] [id number] [facility] 2017-08-04 14:48:53 2017-08-04 14:48:53 Outpatient [facility] [id number] [facility] 2017-08-01 14:47:07 2017-08-01 14:47:07 Outpatient [facility] [id number] [facility] 2017-06-13 07:26:45 2017-06-13 07:26:45 Outpatient [facility] [id number] [facility] 2017-06-05 00:00:00 2017-06-05 00:00:00 Outpatient [facility] [id number] [facility] 2017-05-24 14:46:34 2017-05-24 14:46:34 Outpatient [facility] [id number] [facility] 2017-05-15 08:37:45 2017-05-15 08:37:45 Outpatient [facility] [id number] [facility] 2017-05-04 14:36:07 2017-05-04 14:36:07 Outpatient [facility] [id number] [facility] Results Test Description Test Time Test Comments Results Result Comments Source CT BRAIN WO 2019-12-30 09:02:00 [facility] [address] [address] Patient Name: VIDA HOBBS MR #: [id number] : 1945 Age/Sex: 74/F Req #: [id number] Adm Physician: Ordered by: COLLEEN MASTERS MD Report #: [id number] Location: ER Room/Bed: Procedure: [id number] CT/CT BRAIN WO Exam Date: 12/30/19 Exam Time: 0800 REPORT STATUS: Signed Exam: Head CT without contrast History: Dizziness, weakness Comparison studies: Same-day head CT 12/30/2019 at 7:03 AM and head CTs of 06/07/2019 and 09/02/2018. Technique: Axial images were obtained from the skull base to the vertex. Coronal and sagittal images reconstructed from the axial data. Dose modulation, iterative reconstruction, and/or weight based adjustment of the mA/kV was utilized to reduce the radiation dose to as low as reasonably achievable. Radiation dose: Total DLP: 921.4 mGy*cm. Estimated effective dose: DLP x 0.015 Intravenous contrast: None Findings: Scalp: No abnormalities. Bones: No fractures, blastic or lytic lesions. Brain sulci: Sylvian fissures are mildly prominent. Remaining sulci are of appropriate size for the patient's age. Ventricles: Mild compensatory dilatation. No hydrocephalus. Extra-axial spaces: No masses, no fluid collection. Parenchyma: No mass, acute hemorrhage or acute cortical vascular insult. Ill-defined and confluent hypodensities in the supratentorial white matter are nonspecific but are most compatible with chronic microvascular ischemic changes. Ill-defined hypodensities in the thalami are also nonspecific but may be chronic ischemic changes and/or also unchanged. Sellar/suprasellar region: No abnormalities. Craniocervical junction: Patent foramen magnum. No Chiari one malformation. Included paranasal sinuses: Chronic inflammatory changes in the right sphenoid sinus which is opacified with peripheral mucoperiosteal thickening and contains central calcifications. Left sphenoid sinus is partially opacified and contains secretions, similar to the 06/07/[address] Chronic mucoperiosteal thickening present in the partially imaged right maxillary sinus. Mild scattered nonspecific mucosal thickening present in the right ethmoid air cells. Incidental findings: Atherosclerotic calcifications in the carotid siphons and in the proximal basilar artery. IMPRESSION: No acute intracranial abnormalities or changes from the prior head CT on 12/30/2019 at 7:03 AM. Chronic findings: 1. Mild generalized parenchymal volume loss. 2. Moderate microvascular ischemic changes. Signed by: Dr. Osiris Braden M.D. on 12/30/2019 9:08 AM Dictated By: OSIRIS BRADEN MD 7 Transcribed By: WALDO on 12/30/19907 COPY TO: COLLEEN MASTERS MD CHEST SINGLE (PORTABLE) 2019-12-30 07:46:[address] [address] Patient Name: VIDA HOBBS MR #: [id number] : 1945 Age/Sex: 74/F Req #: [id number] Adm Physician: Ordered by: LO WADE DO Report #: [id number] Location: ER Room/Bed: Procedure: [id number] DX/CHEST SINGLE (PORTABLE) Exam Date: 12/30/19 Exam Time: 0700 REPORT STATUS: Signed EXAMINATION: CHEST SINGLE (PORTABLE) INDICATION: Weakness COMPARISON: Chest x-ray 06/07/2019 FINDINGS: TUBES and LINES: None. LUNGS: Normal lung volumes. Lungs are clear. No consolidations. PLEURA: No pleural effusion or pneumothorax. HEART AND MEDIASTINUM: Cardiac size is mildly enlarged. Aortic calcifications. BONES AND SOFT TISSUES: No acute osseous lesion. Soft tissues are unremarkable. Degenerative changes UPPER ABDOMEN: No free air under the diaphragm. IMPRESSION: Mild cardiomegaly. Signed by: Henry Fraga DO on 12/30/2019 7:46 AM Dictated By: HENRY FRAGA DO 5 Transcribed By: WALDO on 12/30/19745 COPY TO: LO WADE DO Urine color determination 2019-12-30 07:33:00 Test Item Urine Color (test code = 5778-6) YELLOW YELLOW [facility] [id number] 07:33:00* Test Item Value Reference Range Interpretation Comments Urine Clarity (test code = 71261-5) CLEAR [facility]AR [facility] Urine by Test strip 2019-12-30 07:33:00* Test Item Value Reference Range Interpretation Comments Urine Specific [place] (test code = 5811-5) 1.020 1.010-1.02 5 [facility] measurement by automated test [id number] 07:33:00* Test Item Value Reference Range Interpretation Comments Urine pH (test code = 70870-5) 7 5-7 [facility] leukocyte esterase detection by [id number] 07:33:00* Test Item Value Reference Range Interpretation Comments Urine Leukocyte Esterase (test code = 5799-2) SMALL NEGATIVE [facility] nitrite [id number] 07:33:00* Test Item Value Reference Range Interpretation Comments Urine Nitrite (test code = 40677-8) NEGATIVE NEGATIVE [facility] protein measurement by test strip (mass/volume)2019-12-30 07:33:00* Test Item Value Reference Range Interpretation Comments Urine Protein (test code = 5804-0) TRACE NEGATIVE [facility] glucose [id number] 07:33:00* Test Item Value Reference Range Interpretation Comments Urine Glucose (UA) (test code = 2349-9) 1+ NEGATIVE [facility] ketones detection by automated test [id number] 07:33:00* Test Item Value Reference Range Interpretation Comments Urine Ketones (test code = 07228-2) NEGATIVE NEGATIVE [facility] urobilinogen measurement by test strip (mass/volume)2019-12-30 07:33:00* Test Item Value Reference Range Interpretation Comments Urine Urobilinogen (test code = 80564-2) 0.2 0.2-1 [facility] total bilirubin measurement (mass/volume)2019-12-30 07:33:00* Test Item Value Reference Range Interpretation Comments Urine Bilirubin (test code = 1978-6) NEGATIVE NEGATIVE [facility] HospitalUrine erythrocytes ucrajzlpw2668-42-70 07:33:00* Test Item Value Reference Range Interpretation Comments Urine Blood (test code = 58926-6) TRACE NEGATIVE [facility] HospitalAutomated urine sediment leukocyte count by microscopy (number/high power field)2019-12-30 07:33:00* Test Item Value Reference Range Interpretation Comments Urine WBC (test code = 5821-4) 6-10 0-5 [facility] HospitalErythrocytes detection in urine sediment by light gujuhvlbji4844-32-70 07:33:00* Test Item Value Reference Range Interpretation Comments Urine RBC (test code = 60079-1) 6-10 0-5 [facility] HospitalBacteria detection in urine sediment by light tlffclfman7640-73-18 07:33:00* Test Item Value Reference Range Interpretation Comments Urine Bacteria (test code = 51160-6) RARE NONE [facility] HospitalEpithelial cells detection in urine sediment by light lwafgnbpow6059-63-74 07:33:00* Test Item Value Reference Range Interpretation Comments Urine Epithelial Cells (test code = 94210-3) FEW NONE [facility] IO1867-75-66 07:10:00 [facility] [address] [address] Patient Name: VIDA HOBBS MR #: [id number] : 1945 Age/Sex: 74/F Req #: [id number] Adm Physician: Ordered by: LO WADE DO Report #: [id number] Location: ER Room/Bed: Procedure: [id number] CT/CT BRAIN WO Exam Date: 12/30/19 Exam Time: 0655 REPORT STATUS: Signed Exam: Head CT without cont rast History: Weakness Comparison studies: Head CTs of 06/07/2019 20/12/2018 . Technique: Axial images were obtained from the skull base to the vertex . Coronal and sagittal images reconstructed from the axial data. Dose modul ation, iterative reconstruction, and/or weight based adjustment of the mA/kV w as utilized to reduce the radiation dose to as low as reasonably achievable. Radiation dose: Total DLP: 947 mGy*cm. Estimated effective dose: DLP x 0.015 Intravenous contrast: None Findings: Scalp: No abnormaliti es. Bones: No fractures, blastic or lytic lesions. Brain sulci: Sylvian f issures are mildly prominent. Remaining sulci are of appropriate size for the patient's age. Ventricles: Mild compensatory dilatation. No hydrocephalus. E xtra-axial spaces: No masses, no fluid collection. Parenchyma: No mass, acute hemorrhage or acute cortical vascular insult. Ill-defined and confluent hypodensities in the supratentorial white matter are nonspecific but are most compatible with chronic microvascular ischemic changes. Ill-defined hypodensi ties in the thalami are also nonspecific but may be chronic ischemic changes w hich are also unchanged. Sellar/suprasellar region: No abnormalities. Cuff Setter Lockstitch niocervical junction: Patent foramen magnum. No Chiari one malformation. In cluded paranasal sinuses: Chronic inflammatory changes in the right sphenoid sinus which is opacified with peripheral chronic mucoperiosteal thickening and central calcifications. Left sphenoid sinus is partially opacified and contain secretions, similar to the 06/07/[address] Incidental findings: A therosclerotic calcifications in the carotid siphons. IMPRESSION: No acute intracranial abnormalities. Chronic findings: 1. Mild generalized parenchymal volume loss. 2. Moderate microvascular ischemic changes. Si gned by: Dr. Osiris Braden M.D. on 12/30/2019 7:17 AM Dictated By: OSIRIS BRADEN MD 6 Tra nscribed By: WALDO on 12/30/19716 COPY TO: LO WADE DO Blood leukocytes automated count (number/volume)2019-12-30 06:40:00* Test Item Value Reference Range Interpretation Comments White Blood Count (test code = 6690-2) 10.17 4.8-10.8 [facility] HospitalBlood erythrocytes automated count (number/volume)2019-12-30 06:40:00* Test Item Value Reference Range Interpretation Comments Red Blood Count (test code = 789-8) 3.96 3.6-5.1 [facility] HospitalBlood hemoglobin measurement (moles/volume)2019-12-30 06:40:00* Test Item Value Reference Range Interpretation Comments Hemoglobin (test code = 95236-1) 10.5 12.0-16.0 [facility] HospitalAutomated blood hematocrit (volume fraction)2019-12-30 06:40:00* Test Item Value Reference Range Interpretation Comments Hematocrit (test code = 4544-3) 32.9 34.2-44.1 [facility] HospitalAutomated erythrocyte mean corpuscular kzulrt0196-81-63 06:40:00* Test Item Value Reference Range Interpretation Comments Mean Corpuscular Volume (test code = 787-2) 83.1 81-99 [facility] HospitalAutomated erythrocyte mean corpuscular hemoglobin (mass per erythrocyte)2019-12-30 06:40:00* Test Item Value Reference Range Interpretation Comments Mean Corpuscular Hemoglobin (test code = 785-6) 26.5 28-32 [facility] HospitalAutomated erythrocyte mean corpuscular hemoglobin concentration measurement (mass/volume)2019-12-30 06:40:00* Test Item Value Reference Range Interpretation Comments Mean Corpuscular Hemoglobin Concent (test code = 786-4) 31.9 31-35 [facility] HospitalRDW EjfLz-Zgt9762-67-05 06:40:00* Test Item Value Reference Range Interpretation Comments Red Cell Distribution Width (test code = 63927-9) 14.2 11.7 -14.4 [facility] HospitalAutomated blood platelet count (count/volume)2019-12-30 06:40:00* Test Item Value Reference Range Interpretation Comments Platelet Count (test code = 777-3) 299 140-360 [facility] HospitalAutformerly [facility] hospitaled blood segmented neutrophil count as percentage of total fjddhcipzx9371-75-47 06:40:00* Test Item Value Reference Range Interpretation Comments Neutrophils (%) (Auto) (test code = 48841-1) 68.3 38.7-80.0 [facility] HospitalAutformerly [facility] hospitaled blood lymphocyte count as percentage ot total okrdnytfua1675-41-97 06:40:00* Test Item Value Reference Range Interpretation Comments Lymphocytes (%) (Auto) (test code = 736-9) 23.3 18.0-39.1 [facility] HospitalAutomated blood monocyte count as percentage of total ejynypxbyc0427-53-36 06:40:00* Test Item Value Reference Range Interpretation Comments Monocytes (%) (Auto) (test code = 5905-5) 6.3 4.4-11.3 [facility] HospitalAutomated blood eosinophil count as percentage of total wabqnompgz1559-23-63 06:40:00* Test Item Value Reference Range Interpretation Comments Eosinophils (%) (Auto) (test code = 713-8) 1.2 0.0-6.0 [facility] HospitalAutomated blood basophil count as percentage of total brhijvcdbo1055-57-97 06:40:00* Test Item Value Reference Range Interpretation Comments Basophils (%) (Auto) (test code = 706-2) 0.3 0.0-1.0 [facility] HospitalFluoroscopic procedure less than one hour fggpbbia8551-63-62 06:40:00* Test Item Value Reference Range Interpretation Comments IM GRANULOCYTES % (test code = IM GRANULOCYTES %) 0.6 0.0- 1.0 [facility] HospitalAutomated blood neutrophil count 2019-12-30 06:40:00* Test Item Value Reference Range Interpretation Comments Neutrophils # (Auto) (test code = 751-8) 7.0 2.1-6.9 [facility] HospitalBlood lymphocytes count (number/volume) 2019-12-30 06:40:00* Test Item Value Reference Range Interpretation Comments Lymphocytes # (Auto) (test code = 71676-3) 2.4 1.0-3.2 [facility] HospitalBlood monocytes automated count (number/volume)2019-12-30 06:40:00* Test Item Value Reference Range Interpretation Comments Monocytes # (Auto) (test code = 742-7) 0.6 0.2-0.8 [facility] HospitalAutomated blood eosinophil count 2019-12-30 06:40:00* Test Item Value Reference Range Interpretation Comments Eosinophils # (Auto) (test code = 711-2) 0.1 0.0-0.4 [facility] HospitalAutomated blood basophil count (count/volume)2019-12-30 06:40:00* Test Item Value Reference Range Interpretation Comments Basophils # (Auto) (test code = 704-7) 0.0 0.0-0.1 [facility] HospitalFluoroscopic procedure less than one hour oasltjvu1694-75-45 06:40:00* Test Item Value Reference Range Interpretation Comments Absolute Immature Granulocyte (auto (oc t code = Absolute Immature Granulocyte (auto) 0.06 0-0.1 [facility] plasma sodium measurement (moles/volume)2019-12-30 06:40:00* Test Item Value Reference Range Interpretation Comments Sodium Level (test code = 2951-2) 132 136-145 [facility]lineerum or plasma potassium measurement (moles/volume)2019-12-30 06:40:00* Test Item Value Reference Range Interpretation Comments Potassium Level (test code = 2823-3) 4.1 3.5-5.1 [facility]lineerum or plasma chloride measurement (moles/volume)2019-12-30 06:40:00* Test Item Value Reference Range Interpretation Comments Chloride Level (test code = 2075-0) 98 98-107 [facility]lineerum or plasma carbon dioxide, total measurement (moles/volume)2019-12-30 06:40:00* Test Item Value Reference Range Interpretation Comments Carbon Dioxide Level (test code = 2028-9) 24 22-29 [facility]lineerum or plasma anion zah4627-56-11 06:40:00* Test Item Value Reference Range Interpretation Comments Anion Gap (test code = 47225-0) 14.1 8-16 [facility]erum or plasma urea nitrogen measurement (mass/volume)2019-12-30 06:40:00* Test Item Value Reference Range Interpretation Comments Blood Urea Nitrogen (test code = 3094-0) 13 7-26 [facility]erum or plasma creatinine measurement (mass/volume)2019-12-30 06:40:00* Test Item Value Reference Range Interpretation Comments Creatinine (test code = 2160-0) 0.98 0.57-1.11 [facility]um or plasma urea nitrogen/creatinine mass eiigf3825-82-02 06:40:00* Test Item Value Reference Range Interpretation Comments BUN/Creatinine Ratio (test code = 3097-3) 13 6-25 [facility] HospitalEstimated glomerular filtration rate (GFR) qwiobxfzaikhp9521-83-75 06:40:00* Test Item Value Reference Range Interpretation Comments Estimat Glomerular Filtration Rate (test code = 051630094) 55 >60 Ranges were taken from the National Kidney Disease Education Program and the [facility] literature.Reference ranges:60 or greater: Ygkgxa58-95 ( for 3 consecutive months): Chronic kidney disease 15 or less: Kidney failureStarr County Memorial HospitalGlucose lgqxnyzpeoy5126-82-40 06:40:00* Test Item Value Reference Range Interpretation Comments Glucose Level (test code = KME2180) 241 74-118 [facility]um or plasma calcium measurement (mass/volume)2019-12-30 06:40:00* Test Item Value Reference Range Interpretation Comments Calcium Level (test code = 44814-2) 8.9 8.4-10.2 [facility]um or plasma total bilirubin measurement (mass/volume)2019-12-30 06:40:00* Test Item Value Reference Range Interpretation Comments Total Bilirubin (test code = 1975-2) 0.4 0.2-1.2 [facility] HospitalFluoroscopic procedure less than one hour pairpizg3689-41-58 06:40:00* Test Item Value Reference Range Interpretation Comments Aspartate Amino Transf (AST/SGOT) (test code = Aspartate Amino Transf (AST/SGOT)) 17 5-34 [facility]lineerum or plasma alanine aminotransferase measurement (enzymatic activity/volume)2019-12-30 06:40:00* Test Item Value Reference Range Interpretation Comments Alanine Aminotransferase (ALT/SGPT) (test code = 1742-6) 13 0-55 [facility]lineerum or plasma protein measurement (mass/volume)2019-12-30 06:40:00* Test Item Value Reference Range Interpretation Comments Total Protein (test code = 2885-2) 7.8 6.5-8.1 [facility]um or plasma albumin measurement (mass/volume)2019-12-30 06:40:00* Test Item Value Reference Range Interpretation Comments Albumin (test code = 1751-7) 3.3 3.5-5.0 [facility] HospitalPlasma globulin measurement (mass/volume) 2019-12-30 06:40:00* Test Item Value Reference Range Interpretation Comments Globulin (test code = 25418-8) 4.5 2.3-3.5 [facility]line[facility]um or plasma albumin/globulin mass yaclv6511-97-26 06:40:00* Test Item Value Reference Range Interpretation Comments Albumin/Globulin Ratio (test code = 1759-0) 0.7 0.8-2.0 [facility]um or plasma alkaline phosphatase measurement (enzymatic activity/volume)2019-12-30 06:40:00* Test Item Value Reference Range Interpretation Comments Alkaline Phosphatase (test code = 6768-6) 129 40-150 [facility] HospitalBNP Rtm-eDcw1923-22-05 06:40:00* Test Item Value Reference Range Interpretation Comments B-Type Natriuretic Peptide (test code = 89423-3) 33.8 0-100 [facility]lineerum or plasma creatine kinase measurement (enzymatic activity/volume)2019-12-30 06:40:00* Test Item Value Reference Range Interpretation Comments Creatine Kinase (test code = 2157-6) 39 29-168 [facility]lineerum or plasma creatine kinase MB measurement (mass/volume)2019-12-30 06:40:00* Test Item Value Reference Range Interpretation Comments Creatine Kinase MB (test code = 81771-6) 0.40 0-5.0 [facility] HospitalTroponin I measurement by highly sensitive enzyme rnlrhgareaa0906-13-93 06:40:00* Test Item Value Reference Range Interpretation Comments Troponin I (test code = 11176-6) < 0.001 0-0.300 [facility]um or plasma lipase measurement (enzymatic activity/volume)2019-12-30 06:40:00* Test Item Value Reference Range Interpretation Comments Lipase (test code = 3040-3) 54 8-78 [facility] HospitalBedside Zcohgvj4269-99-83 11:35:00* Test Item Value Reference Range Interpretation Comments Bedside Glucose (test code = 64909-4) 256 70-120 H Meter ID: [id number] County Memorial HospitalCapillary blood glucose measurement by glucometer (mass/volume)2019 10:51:00* Test Item Value Reference Range Interpretation Comments Bedside Glucose (test code = 93745-8) 256 70-120 Meter ID: [id number] County Memorial HospitalBlood Culture 2019-06-08 23:54:00* Test Item Value Reference Range Interpretation Comments Blood Culture (test code = 05577893) NO GROWTH AFTER 24 HOURS [facility] HospitalCreatine Kinase NP5361-92-65 07:51:00* Test Item Value Reference Range Interpretation Comments Creatine Kinase MB (test code = 46168-5) 0.80 0-5.0 [facility] HospitalTroponin R4010-96-65 07:51:00* Test Item Value Reference Range Interpretation Comments Troponin I (test code = VKI6872) 0.011 0-0.300 [facility] HospitalCreatine Qrgvma1828-51-07 07:43:00* Test Item Value Reference Range Interpretation Comments Creatine Kinase (test code = 2157-6) 202 29-168 H [facility] Shorelineodium Svtdx3571-99-58 06:01:00* Test Item Value Reference Range Interpretation Comments Sodium Level (test code = 2951-2) 133 136-145 L [facility] HospitalPotassium Hneme4982-85-63 06:01:00* Test Item Value Reference Range Interpretation Comments Potassium Level (test code = 2823-3) 4.1 3.5-5.1 [facility] HospitalChloride Juxmm4187-35-28 06:01:00* Test Item Value Reference Range Interpretation Comments Chloride Level (test code = 2075-0) 105 98-107 [facility] HospitalCarbon Dioxide Ktini0596-07-58 06:01:00* Test Item Value Reference Range Interpretation Comments Carbon Dioxide Level (test code = 2028-9) 25 22-29 [facility] HospitalAnion Xxi0253-55-19 06:01:00* Test Item Value Reference Range Interpretation Comments Anion Gap (test code = 40048-2) 7.1 8-16 L [facility] HospitalBlood Urea Ncjnylmf8180-56-50 06:01:00* Test Item Value Reference Range Interpretation Comments Blood Urea Nitrogen (test code = 3094-0) 11 7-26 [facility] HospitalCreatinine2020-03-14 06:01:00* Test Item Value Reference Range Interpretation Comments Creatinine (test code = 2160-0) 0.91 0.57-1.11 [facility] HospitalBUN/Creatinine Vkqjm0448-08-19 06:01:00* Test Item Value Reference Range Interpretation Comments BUN/Creatinine Ratio (test code = 3097-3) 12 6-25 [facility] HospitalEstimat Glomerular Filtration Rate 2019-06-08 06:01:00* Test Item Value Reference Range Interpretation Comments Estimat Glomerular Filtration Rate (test code = 897872691) > 60 >60 Ranges were taken from the National Kidney Disease Education Program and the [facility] Kidney Foundation literature.Reference ranges:60 or greater: Yftwjt93-68 ( for 3 consecutive months): Chronic kidney disease 15 or less: Kidney failureCHI [facility] Medical CenterGlucose Tvtzj3699-95-46 06:01:00* Test Item Value Reference Range Interpretation Comments Glucose Level (test code = JYU6819) 130 74-118 H [facility] HospitalCalcium Lsnnv6164-84-21 06:01:00* Test Item Value Reference Range Interpretation Comments Calcium Level (test code = 42978-7) 8.5 8.4-10.2 [facility] HospitalTotal Zyroltfnk3754-84-42 06:01:00* Test Item Value Reference Range Interpretation Comments Total Bilirubin (test code = 1975-2) 0.6 0.2-1.2 [facility] HospitalAspartate Amino Transf (AST/SGOT) 2019-06-08 06:01:00* Test Item Value Reference Range Interpretation Comments Aspartate Amino Transf (AST/SGOT) (test code = Aspartate Amino Transf (AST/SGOT)) 24 5-34 [facility] HospitalAlanine Aminotransferase (ALT/SGPT) 2019-06-08 06:01:00* Test Item Value Reference Range Interpretation Comments Alanine Aminotransferase (ALT/SGPT) (test code = 1742-6) 14 0-55 [facility] HospitalTotal Camhpkg6835-69-75 06:01:00* Test Item Value Reference Range Interpretation Comments Total Protein (test code = 2885-2) 6.7 6.5-8.1 [facility] HospitalAlbumin2020-03-14 06:01:00* Test Item Value Reference Range Interpretation Comments Albumin (test code = 1751-7) 2.7 3.5-5.0 L [facility] HospitalGlobulin2020-03-14 06:01:00* Test Item Value Reference Range Interpretation Comments Globulin (test code = 45799-1) 4.0 2.3-3.5 H [facility] HospitalAlbumin/Globulin Dneba3561-73-56 06:01:00 * Test Item Value Reference Range Interpretation Comments Albumin/Globulin Ratio (test code = 1759-0) 0.7 0.8-2.0 L [facility] HospitalAlkaline Aqtyahqbwex5941-17-96 06:01:00* Test Item Value Reference Range Interpretation Comments Alkaline Phosphatase (test code = 6768-6) 93 40-150 [facility] HospitalWhite Blood Ahksb7239-32-86 05:40:00* Test Item Value Reference Range Interpretation Comments White Blood Count (test code = 6690-2) 10.08 4.8-10.8 [facility] HospitalRed Blood Dvduv7699-27-20 05:40:00* Test Item Value Reference Range Interpretation Comments Red Blood Count (test code = 789-8) 3.89 3.6-5.1 [facility] HospitalHemoglobin2020-03-14 05:40:00* Test Item Value Reference Range Interpretation Comments Hemoglobin (test code = 07366-8) 10.5 12.0-16.0 L [facility] HospitalHematocrit2020-03-14 05:40:00* Test Item Value Reference Range Interpretation Comments Hematocrit (test code = 4544-3) 33.1 34.2-44.1 L [facility] HospitalMean Corpuscular Fkawgz2573-09-62 05:40:00* Test Item Value Reference Range Interpretation Comments Mean Corpuscular Volume (test code = 787-2) 85.1 81-99 [facility] HospitalMean Corpuscular Xiajwdrqtx9028-06-41 05:40:00* Test Item Value Reference Range Interpretation Comments Mean Corpuscular Hemoglobin (test code = 785-6) 27.0 28-32 L [facility] HospitalMean Corpuscular Hemoglobin Concent 2019-06-08 05:40:00* Test Item Value Reference Range Interpretation Comments Mean Corpuscular Hemoglobin Concent (test code = 786-4) 31.7 31-35 [facility] HospitalRed Cell Distribution Bhrsn9363-47-91 05:40:00* Test Item Value Reference Range Interpretation Comments Red Cell Distribution Width (test code = 51741-5) 14.3 11.7 -14.4 [facility] HospitalPlatelet Wofoy1010-76-02 05:40:00* Test Item Value Reference Range Interpretation Comments Platelet Count (test code = 777-3) 239 140-360 [facility] HospitalNeutrophils (%) (Auto)2019-06-08 05:40:00 * Test Item Value Reference Range Interpretation Comments Neutrophils (%) (Auto) (test code = 98729-3) 57.9 38.7-80.0 [facility] HospitalLymphocytes (%) (Auto)2019-06-08 05:40:00 * Test Item Value Reference Range Interpretation Comments Lymphocytes (%) (Auto) (test code = 736-9) 30.2 18.0-39.1 [facility] HospitalMonocytes (%) (Auto)2019-06-08 05:40:00* Test Item Value Reference Range Interpretation Comments Monocytes (%) (Auto) (test code = 5905-5) 10.3 4.4-11.3 [facility] HospitalEosinophils (%) (Auto)2019-06-08 05:40:00 * Test Item Value Reference Range Interpretation Comments Eosinophils (%) (Auto) (test code = 713-8) 1.1 0.0-6.0 [facility] HospitalBasophils (%) (Auto)2019-06-08 05:40:00* Test Item Value Reference Range Interpretation Comments Basophils (%) (Auto) (test code = 706-2) 0.2 0.0-1.0 [facility] HospitalIM GRANULOCYTES %2019-06-08 05:40:00* Test Item Value Reference Range Interpretation Comments IM GRANULOCYTES % (test code = IM GRANULOCYTES %) 0.3 0.0- 1.0 [facility] HospitalNeutrophils # (Auto)2019-06-08 05:40:00* Test Item Value Reference Range Interpretation Comments Neutrophils # (Auto) (test code = 751-8) 5.8 2.1-6.9 [facility] HospitalLymphocytes # (Auto)2019-06-08 05:40:00* Test Item Value Reference Range Interpretation Comments Lymphocytes # (Auto) (test code = 31723-0) 3.0 1.0-3.2 [facility] HospitalMonocytes # (Auto)2019-06-08 05:40:00* Test Item Value Reference Range Interpretation Comments Monocytes # (Auto) (test code = 742-7) 1.0 0.2-0.8 H [facility] HospitalEosinophils # (Auto)2019-06-08 05:40:00* Test Item Value Reference Range Interpretation Comments Eosinophils # (Auto) (test code = 711-2) 0.1 0.0-0.4 [facility] HospitalBasophils # (Auto)2019-06-08 05:40:00* Test Item Value Reference Range Interpretation Comments Basophils # (Auto) (test code = 704-7) 0.0 0.0-0.1 [facility] HospitalAbsolute Immature Granulocyte (auto 2019-06-08 05:40:00* Test Item Value Reference Range Interpretation Comments Absolute Immature Granulocyte (auto (oc t code = Absolute Immature Granulocyte (auto) 0.03 0-0.1 [facility] HospitalBlood lvmatct2596-73-47 23:35:00* Test Item Value Reference Range Interpretation Comments Blood Culture (test code = 90649223) NO GROWTH AFTER 5 DAYS, FINAL REPORT [facility] HospitalUrine GJX8771-21-72 16:10:00* Test Item Value Reference Range Interpretation Comments Urine WBC (test code = 5821-4) 0-5 0-5 [facility] HospitalUrine LQV4481-30-41 16:10:00* Test Item Value Reference Range Interpretation Comments Urine RBC (test code = 61550-5) NONE 0-5 [facility] HospitalUrine Dccziwgk5944-60-12 16:10:00* Test Item Value Reference Range Interpretation Comments Urine Bacteria (test code = 63216-9) MANY NONE H [facility] HospitalUrine Epithelial Iegaf9180-88-76 16:10:00 * Test Item Value Reference Range Interpretation Comments Urine Epithelial Cells (test code = 96860-1) NONE NONE [facility] HospitalUrine Fhrre7160-44-56 15:55:00* Test Item Value Reference Range Interpretation Comments Urine Color (test code = 5778-6) YELLOW YELLOW [facility] HospitalUrine Gradqkc3503-96-39 15:55:00* Test Item Value Reference Range Interpretation Comments Urine Clarity (test code = 73351-0) HAZY CLEAR [facility] HospitalUrine Specific Ptklcnx8392-36-50 15:55:00 * Test Item Value Reference Range Interpretation Comments Urine Specific [place] (test code = 5811-5) 1.020 1.010-1.02 5 [facility] HospitalUrine sX7379-49-72 15:55:00* Test Item Value Reference Range Interpretation Comments Urine pH (test code = 25489-8) 5.5 5-7 [facility] HospitalUrine Leukocyte Zvinztwd2830-92-58 15:55:00* Test Item Value Reference Range Interpretation Comments Urine Leukocyte Esterase (test code = 5799-2) TRACE NEGATIVE H [facility] HospitalU[facility] Qhzmwlh0494-64-21 15:55:00* Test Item Value Reference Range Interpretation Comments Urine Nitrite (test code = 45455-3) POSITIVE NEGATIVE [facility] Jqurxxz4426-60-60 15:55:00* Test Item Value Reference Range Interpretation Comments Urine Protein (test code = 5804-0) 1+ NEGATIVE H [facility] HospitalU[facility] Glucose (UA)2019-06-07 15:55:00* Test Item Value Reference Range Interpretation Comments Urine Glucose (UA) (test code = 2349-9) NEGATIVE NEGATIVE [facility] Xvbyqhu3121-43-49 15:55:00* Test Item Value Reference Range Interpretation Comments Urine Ketones (test code = 21278-5) 1+ NEGATIVE H [facility] HospitalU[facility] Ilhfgqqvyuwb2699-24-82 15:55:00* Test Item Value Reference Range Interpretation Comments Urine Urobilinogen (test code = 33070-1) 0.2 0.2-1 [facility] Lqgbtvwje5419-14-43 15:55:00* Test Item Value Reference Range Interpretation Comments Urine Bilirubin (test code = 1978-6) NEGATIVE NEGATIVE [facility] Avcnj0692-84-57 15:55:00* Test Item Value Reference Range Interpretation Comments Urine Blood (test code = 28561-3) TRACE NEGATIVE H [facility] HospitalB-Type Natriuretic Squelbm2369-56-75 15:21:00* Test Item Value Reference Range Interpretation Comments B-Type Natriuretic Peptide (test code = 32200-6) 16.6 0-100 [facility] HospitalCT BRAIN VU7806-69-23 14:57:00 [facility] [address] [address] Patient Name: VIDA HOBBS MR #: [id number] : 1945 Age/Sex: 73/F Req #: [id number] Adm Physician: Ordered by: LO WADE DO Report #: [id number] Location: ER Room/Bed: Procedure: 3920-1801 CT/C T BRAIN WO Exam Date: 06/07/19 [...] COPY TO: LO WADE DO CHEST 2 MNPKU8544-30-71 14:48:00 [address] [address] Patient Name: VIDA OHBBS MR #: [id number] : 1945 Age/Sex: 73/F Req #: [id number] Adm Physician: Ordered by: LO WADE DO Report #: [id number] Location: ER Room/Bed: Procedure: 6024-4542 DX/C HEST 2 VIEWS Exam Date: 06/07/19 [...] y Signed By: BHAVESH STANTON MD on 06/07/19 1449 Transcribed By: WALDO on 06/07/19 1449 COPY TO: LO WADE DO Bedside Qqjinvq8084-40-91 16:23:00 * Test Item Value Reference Range Interpretation Comments Bedside Glucose (test code = 40247-3) 146 70-120 H Meter ID: [id number] [facility] 2019-02-23 06:01:00* Test Item Value Reference Range Interpretation Comments Sodium Level (test code = 2951-2) 130 136-145 L [facility] HospitalPotassium Liktx8583-06-98 06:01:00* Test Item Value Reference Range Interpretation Comments Potassium Level (test code = 2823-3) 3.8 3.5-5.1 [facility] HospitalChloride Azpwr2747-35-83 06:01:00* Test Item Value Reference Range Interpretation Comments Chloride Level (test code = 2075-0) 102 98-107 [facility] HospitalCarbon Dioxide Uugmo0351-26-69 06:01:00* Test Item Value Reference Range Interpretation Comments Carbon Dioxide Level (test code = 2028-9) 21 22-29 L [facility] HospitalAnion Vnr0475-33-07 06:01:00* Test Item Value Reference Range Interpretation Comments Anion Gap (test code = 53074-0) 10.8 8-16 [facility] HospitalBlood Urea Ijbggdgi1968-91-21 06:01:00* Test Item Value Reference Range Interpretation Comments Blood Urea Nitrogen (test code = 3094-0) 7 7-26 [facility] HospitalCreatinine2019-11-30 06:01:00* Test Item Value Reference Range Interpretation Comments Creatinine (test code = 2160-0) 0.85 0.57-1.11 [facility] HospitalBUN/Creatinine Xuwzf0242-23-48 06:01:00* Test Item Value Reference Range Interpretation Comments BUN/Creatinine Ratio (test code = 3097-3) 8 6- [facility] HospitalEstimat Glomerular Filtration Rate 2019-02-23 06:01:00* Test Item Value Reference Range Interpretation Comments Estimat Glomerular Filtration Rate (test code = 259810318) > 60 >60 Ranges were taken from the National Kidney Disease Education Program and the [facility] Kidney Foundation literature.Reference ranges:60 or greater: Rdiwob50-65 ( for 3 consecutive months): Chronic kidney disease 15 or less: Kidney failureSt[facility] HospitalGlucose Vnqfd2182-99-27 06:01:00* Test Item Value Reference Range Interpretation Comments Glucose Level (test code = VNT1648) 155 74-118 H [facility] HospitalCalcium Tuknp3066-85-09 06:01:00* Test Item Value Reference Range Interpretation Comments Calcium Level (test code = 27000-2) 8.4 8.4-10.2 [facility] HospitalWhite Blood Pisol2204-42-91 05:41:00* Test Item Value Reference Range Interpretation Comments White Blood Count (test code = 6690-2) 7.51 4.8-10.8 [facility] HospitalRed Blood Nqsvd6045-89-16 05:41:00* Test Item Value Reference Range Interpretation Comments Red Blood Count (test code = 789-8) 3.71 3.6-5.1 [facility] HospitalHemoglobin2019-11-30 05:41:00* Test Item Value Reference Range Interpretation Comments Hemoglobin (test code = 05504-6) 9.9 12.0-16.0 L [facility] HospitalHematocrit2019-11-30 05:41:00* Test Item Value Reference Range Interpretation Comments Hematocrit (test code = 4544-3) 30.4 34.2-44.1 L [facility] HospitalMean Corpuscular Quikip9269-04-13 05:41:00* Test Item Value Reference Range Interpretation Comments Mean Corpuscular Volume (test code = 787-2) 81.9 81-99 [facility] HospitalMean Corpuscular Rhiiwtqezj8195-19-91 05:41:00* Test Item Value Reference Range Interpretation Comments Mean Corpuscular Hemoglobin (test code = 785-6) 26.7 28-32 L [facility] HospitalMean Corpuscular Hemoglobin Concent 2019-02-23 05:41:00* Test Item Value Reference Range Interpretation Comments Mean Corpuscular Hemoglobin Concent (test code = 786-4) 32.6 31-35 [facility] HospitalRed Cell Distribution Wbcdz2254-03-32 05:41:00* Test Item Value Reference Range Interpretation Comments Red Cell Distribution Width (test code = 26795-4) 13.9 11.7 -14.4 [facility] HospitalPlatelet Ntvhr7975-38-61 05:41:00* Test Item Value Reference Range Interpretation Comments Platelet Count (test code = 777-3) 246 140-360 [facility] HospitalNeutrophils (%) (Auto)2019-02-23 05:41:00 * Test Item Value Reference Range Interpretation Comments Neutrophils (%) (Auto) (test code = 40726-5) 61.0 38.7-80.0 [facility] HospitalLymphocytes (%) (Auto)2019-02-23 05:41:00 * Test Item Value Reference Range Interpretation Comments Lymphocytes (%) (Auto) (test code = 736-9) 28.8 18.0-39.1 [facility] HospitalMonocytes (%) (Auto)2019-02-23 05:41:00* Test Item Value Reference Range Interpretation Comments Monocytes (%) (Auto) (test code = 5905-5) 8.1 4.4-11.3 [facility] HospitalEosinophils (%) (Auto)2019-02-23 05:41:00 * Test Item Value Reference Range Interpretation Comments Eosinophils (%) (Auto) (test code = 713-8) 1.2 0.0-6.0 [facility] HospitalBasophils (%) (Auto)2019-02-23 05:41:00* Test Item Value Reference Range Interpretation Comments Basophils (%) (Auto) (test code = 706-2) 0.4 0.0-1.0 [facility] HospitalIM GRANULOCYTES %2019-02-23 05:41:00* Test Item Value Reference Range Interpretation Comments IM GRANULOCYTES % (test code = IM GRANULOCYTES %) 0.5 0.0- 1.0 [facility] HospitalNeutrophils # (Auto)2019-02-23 05:41:00* Test Item Value Reference Range Interpretation Comments Neutrophils # (Auto) (test code = 751-8) 4.6 2.1-6.9 [facility] HospitalLymphocytes # (Auto)2019-02-23 05:41:00* Test Item Value Reference Range Interpretation Comments Lymphocytes # (Auto) (test code = 77812-4) 2.2 1.0-3.2 [facility] HospitalMonocytes # (Auto)2019-02-23 05:41:00* Test Item Value Reference Range Interpretation Comments Monocytes # (Auto) (test code = 742-7) 0.6 0.2-0.8 [facility] HospitalEosinophils # (Auto)2019-02-23 05:41:00* Test Item Value Reference Range Interpretation Comments Eosinophils # (Auto) (test code = 711-2) 0.1 0.0-0.4 [facility] HospitalBasophils # (Auto)2019-02-23 05:41:00* Test Item Value Reference Range Interpretation Comments Basophils # (Auto) (test code = 704-7) 0.0 0.0-0.1 [facility] HospitalAbsolute Immature Granulocyte (auto 2019-02-23 05:41:00* Test Item Value Reference Range Interpretation Comments Absolute Immature Granulocyte (auto (oc t code = Absolute Immature Granulocyte (auto) 0.04 0-0.1 [facility] HospitalTotal Wpevcqudl9592-54-65 05:39:00* Test Item Value Reference Range Interpretation Comments Total Bilirubin (test code = 1975-2) 0.5 0.2-1.2 [facility] HospitalAspartate Amino Transf (AST/SGOT) 2019-02-22 05:39:00* Test Item Value Reference Range Interpretation Comments Aspartate Amino Transf (AST/SGOT) (test code = Aspartate Amino Transf (AST/SGOT)) 17 5-34 [facility] HospitalAlanine Aminotransferase (ALT/SGPT) 2019-02-22 05:39:00* Test Item Value Reference Range Interpretation Comments Alanine Aminotransferase (ALT/SGPT) (test code = 1742-6) 12 0-55 [facility] HospitalTotal Krgjuog9619-29-00 05:39:00* Test Item Value Reference Range Interpretation Comments Total Protein (test code = 2885-2) 6.4 6.5-8.1 L [facility] HospitalAlbumin2019-11-29 05:39:00* Test Item Value Reference Range Interpretation Comments Albumin (test code = 1751-7) 2.7 3.5-5.0 L [facility] HospitalGlobulin2019-11-29 05:39:00* Test Item Value Reference Range Interpretation Comments Globulin (test code = 64086-9) 3.7 2.3-3.5 H [facility] HospitalAlbumin/Globulin Rhwbn8872-55-17 05:39:00 * Test Item Value Reference Range Interpretation Comments Albumin/Globulin Ratio (test code = 1759-0) 0.7 0.8-2.0 L [facility] HospitalAlkaline Zjqawtqftyz1303-11-52 05:39:00* Test Item Value Reference Range Interpretation Comments Alkaline Phosphatase (test code = 6768-6) 67 40-150 [facility] HospitalAmylase Hgcac8617-38-51 05:39:00* Test Item Value Reference Range Interpretation Comments Amylase Level (test code = 1798-8) 51 25-125 [facility] HospitalLipase2019-11-29 05:39:00* Test Item Value Reference Range Interpretation Comments Lipase (test code = 3040-3) 15 [facility] HospitalAmylase Ajhij3886-70-31 05:39:00* Test Item Value Reference Range Interpretation Comments Amylase Level (test code = 1798-8) 51 25-125 [facility] HospitalLipase2019-11-29 05:39:00* Test Item Value Reference Range Interpretation Comments Lipase (test code = 3040-3) 15 78 [facility] HospitalTriglycerides Swoxb4403-15-65 06:08:00* Test Item Value Reference Range Interpretation Comments Triglycerides Level (test code = 2571-8) 108 0-149 [facility] HospitalCholesterol Jrhvq3800-18-28 06:08:00* Test Item Value Reference Range Interpretation Comments Cholesterol Level (test code = 2093-3) 150 0-199 Less than 200 mg/dL Low Rlpu847 - 239 mg/dL Borderline Ugdq212 m g/dl and greater High Risk [facility] HospitalLDL Jcncmpmwird6334-00-17 06:08:00* Test Item Value Reference Range Interpretation Comments LDL Cholesterol (test code = 2089-1) 86 60-130 [facility] HospitalHDL Qntcjcaiize1280-89-74 06:08:00* Test Item Value Reference Range Interpretation Comments HDL Cholesterol (test code = 2085-9) 42 40-60 [facility] HospitalCholesterol/HDL Harck0670-66-55 06:08:00 * Test Item Value Reference Range Interpretation Comments Cholesterol/HDL Ratio (test code = 9830-1) 3.6 3.0-3.6 [facility] HospitalTriglycerides Utgfm4965-15-07 06:08:00* Test Item Value Reference Range Interpretation Comments Triglycerides Level (test code = 2571-8) 108 0-149 [facility] HospitalCholesterol Zleyf2477-92-48 06:08:00* Test Item Value Reference Range Interpretation Comments Cholesterol Level (test code = 2093-3) 150 0-199 Less than 200 mg/dL Low Rfnw127 - 239 mg/dL Borderline Uirz305 m g/dl and greater High Risk [facility] HospitalLDL Ecvajvlplva0899-39-29 06:08:00* Test Item Value Reference Range Interpretation Comments LDL Cholesterol (test code = 2089-1) 86 60-130 [facility] HospitalHDL Ushwcoujthm4345-04-08 06:08:00* Test Item Value Reference Range Interpretation Comments HDL Cholesterol (test code = 2085-9) 42 40-60 [facility] HospitalCholesterol/HDL Iyrrk1417-59-91 06:08:00 * Test Item Value Reference Range Interpretation Comments Cholesterol/HDL Ratio (test code = 9830-1) 3.6 3.0-3.6 [facility] HospitalHemoglobin A1c Hmpvcrn7739-98-47 05:55:00 * Test Item Value Reference Range Interpretation Comments Hemoglobin A1c Percent (test code = Hemoglobin A1c Percent) 7.6 4.0-7.0 H [facility] HospitalHemoglobin A1c Yxbuicd2660-07-51 05:55:00 * Test Item Value Reference Range Interpretation Comments Hemoglobin A1c Percent (test code = Hemoglobin A1c Percent) 7.6 4.0-7.0 H [facility] HospitalCT ABDOMEN/PELVIS O3307-95-65 01:53:00 [facility] [address] [place] [address] Patient Name: VIDA HOBBS MR #: [id number] : 1945 Age/Sex: 73/F Req #: [id number] Adm Physician: Ordered by: MIRNA VILLANUEVA MD Report #: [id number] Location: ER Room/Bed: Procedure: 1128-[address]/CT [...] (test code = 5821-4) 6-10 0-5 H [facility] HospitalUrine HFS1904-70-99 01:13:00* Test Item Value Reference Range Interpretation Comments Urine RBC (test code = 80508-5) 6-10 0-5 H [facility] HospitalUrine Rykmstjb5946-80-95 01:13:00* Test Item Value Reference Range Interpretation Comments Urine Bacteria (test code = 28057-6) MODERATE NONE H [facility] HospitalUrine Epithelial Dlovn4485-92-99 01:13:00 * Test Item Value Reference Range Interpretation Comments Urine Epithelial Cells (test code = 06293-9) MODERATE NONE [facility] HospitalUrine Wtpoh6048-78-85 01:12:00* Test Item Value Reference Range Interpretation Comments Urine Color (test code = 5778-6) YELLOW YELLOW [facility] HospitalUrine Kuslyzf9064-60-60 01:12:00* Test Item Value Reference Range Interpretation Comments Urine Clarity (test code = 34115-6) SL CLOUDY CLEAR [facility] HospitalUrine Specific Bpojujd1406-84-48 01:12:00 * Test Item Value Reference Range Interpretation Comments Urine Specific [place] (test code = 5811-5) 1.015 1.010-1.02 5 [facility] HospitalUrine yL0537-33-91 01:12:00* Test Item Value Reference Range Interpretation Comments Urine pH (test code = 19642-4) 6.5 5-7 [facility] HospitalUrine Leukocyte Gtctjmxv2829-68-10 01:12:00* Test Item Value Reference Range Interpretation Comments Urine Leukocyte Esterase (test code = 28311-1) TRACE NEGATIV E H [facility] HospitalUrine Rxjhbbq5019-92-45 01:12:00* Test Item Value Reference Range Interpretation Comments Urine Nitrite (test code = 89589-5) NEGATIVE NEGATIVE [facility] HospitalUrine Hurdnrk0672-05-27 01:12:00* Test Item Value Reference Range Interpretation Comments Urine Protein (test code = 00257-1) TRACE NEGATIVE H [facility] HospitalUrine Glucose (UA)2019-02-21 01:12:00* Test Item Value Reference Range Interpretation Comments Urine Glucose (UA) (test code = 70675-5) NEGATIVE NEGATIVE [facility] HospitalUrine Zllftnq7771-23-45 01:12:00* Test Item Value Reference Range Interpretation Comments Urine Ketones (test code = 94432-6) NEGATIVE NEGATIVE [facility] Jmzkmtvlxfvd5622-46-40 01:12:00* Test Item Value Reference Range Interpretation Comments Urine Urobilinogen (test code = 71203-7) 0.2 0.2-1 [facility] HospitalUrine Dnecwbkkl7373-39-88 01:12:00* Test Item Value Reference Range Interpretation Comments Urine Bilirubin (test code = 1977-8) NEGATIVE NEGATIVE [facility] Zxiaa9790-72-82 01:12:00* Test Item Value Reference Range Interpretation Comments Urine Blood (test code = 34048-5) NEGATIVE NEGATIVE [facility] HospitalUrine RIL2449-57-41 17:33:00* Test Item Value Reference Range Interpretation Comments Urine WBC (test code = 5821-4) 0-5 0-5 [facility] HospitalUrine EBD1643-07-72 17:33:00* Test Item Value Reference Range Interpretation Comments Urine RBC (test code = 23739-5) 0-5 0-5 [facility] HospitalUrine Hpgruskb7075-74-68 17:33:00* Test Item Value Reference Range Interpretation Comments Urine Bacteria (test code = 75647-0) FEW NONE [facility] HospitalUrine Epithelial Ranor1127-59-65 17:33:00 * Test Item Value Reference Range Interpretation Comments Urine Epithelial Cells (test code = 97155-6) MANY NONE [facility] HospitalUrine Ogwnz3479-80-39 17:28:00* Test Item Value Reference Range Interpretation Comments Urine Color (test code = 5778-6) YELLOW YELLOW [facility] HospitalUrine Ycebpik5874-22-15 17:28:00* Test Item Value Reference Range Interpretation Comments Urine Clarity (test code = 15681-4) SL CLOUDY CLEAR [facility] Specific Bfkvjdo7535-54-09 17:28:00 * Test Item Value Reference Range Interpretation Comments Urine Specific [place] (test code = 5811-5) 1.015 1.010-1.02 5 [facility] HospitalUrine sL2570-02-99 17:28:00* Test Item Value Reference Range Interpretation Comments Urine pH (test code = 62311-2) 6.5 5-7 [facility] Leukocyte Vcimyypt1844-40-14 17:28:00* Test Item Value Reference Range Interpretation Comments Urine Leukocyte Esterase (test code = 64930-2) MODERATE NEGATIV E [facility] HospitalUrine Jnbwiqf6953-73-66 17:28:00* Test Item Value Reference Range Interpretation Comments Urine Nitrite (test code = 76023-4) NEGATIVE NEGATIVE [facility] Rqcrllh1168-45-56 17:28:00* Test Item Value Reference Range Interpretation Comments Urine Protein (test code = 02795-6) NEGATIVE NEGATIVE [facility] Glucose (UA)2018-09-02 17:28:00* Test Item Value Reference Range Interpretation Comments Urine Glucose (UA) (test code = 43094-9) NEGATIVE NEGATIVE [facility] HospitalUrine Zkpwtsm1040-48-56 17:28:00* Test Item Value Reference Range Interpretation Comments Urine Ketones (test code = 90250-3) TRACE NEGATIVE H [facility] Pbquxwtsnjap6989-18-28 17:28:00* Test Item Value Reference Range Interpretation Comments Urine Urobilinogen (test code = 98279-6) 0.2 0.2-1 [facility] HospitalUrine Jbncbooem0068-34-02 17:28:00* Test Item Value Reference Range Interpretation Comments Urine Bilirubin (test code = 1977-8) NEGATIVE NEGATIVE [facility] HospitalUrine Ipxjd6094-08-38 17:28:00* Test Item Value Reference Range Interpretation Comments Urine Blood (test code = 92985-9) NEGATIVE NEGATIVE [facility] Zosbe0392-24-88 16:53:00* Test Item Value Reference Range Interpretation Comments Sodium Level (test code = 2951-2) 133 136-145 L [facility] HospitalPotassium Luuig6095-76-96 16:53:00* Test Item Value Reference Range Interpretation Comments Potassium Level (test code = 2823-3) 3.3 3.5-5.1 L [facility] HospitalChloride Arbyh7215-63-56 16:53:00* Test Item Value Reference Range Interpretation Comments Chloride Level (test code = 2075-0) 98 98-107 [facility] HospitalCarbon Dioxide Exrvo6214-24-99 16:53:00* Test Item Value Reference Range Interpretation Comments Carbon Dioxide Level (test code = 2028-9) 22 22-29 [facility] HospitalAnion Veg2792-38-09 16:53:00* Test Item Value Reference Range Interpretation Comments Anion Gap (test code = 91491-4) 16.3 8-16 H [facility] HospitalBlood Urea Uacukops0452-85-14 16:53:00* Test Item Value Reference Range Interpretation Comments Blood Urea Nitrogen (test code = 3094-0) 7 7-26 [facility] HospitalCreatinine2019 16:53:00* Test Item Value Reference Range Interpretation Comments Creatinine (test code = 2160-0) 1.01 0.57-1.11 [facility] HospitalBUN/Creatinine Puclf0102-32-03 16:53:00* Test Item Value Reference Range Interpretation Comments BUN/Creatinine Ratio (test code = 3097-3) 7 6-25 [facility] HospitalEstimat Glomerular Filtration Rate 2018-09-02 16:53:00* Test Item Value Reference Range Interpretation Comments Estimat Glomerular Filtration Rate (test code = 642875367) 54 >60 L Ranges were taken from the National Kidney Disease Education Program and the [facility] literature.Reference ranges:60 or greater: Fueskg27-07 ( for 3 consecutive months): Chronic kidney disease 15 or less: Kidney failureSt[facility] HospitalGlucose Kohif6276-58-83 16:53:00* Test Item Value Reference Range Interpretation Comments Glucose Level (test code = YJF1061) 180 74-118 H [facility] HospitalCalcium Dgdlk8189-94-65 16:53:00* Test Item Value Reference Range Interpretation Comments Calcium Level (test code = 34913-3) 9.2 8.4-10.2 [facility] HospitalCT BRAIN BM8572-48-43 16:41:00 [facility] [address] [address] Patient Name: VIDA HOBBS MR #: [id number] : 1945 Age/Sex: 73/F Req #: [id number] Adm Physician: Ordered by: NI IRWIN MD Report #: [id number] Location: ER Room/Bed: Procedure: 1304-2427 C T/CT BRAIN WO Exam Date: 09/02/18 [...] COPY TO: NI IRWIN MD White Blood Yxbcm3771-92-52 16:26:00* Test Item Value Reference Range Interpretation Comments White Blood Count (test code = 6690-2) 13.74 4.8-10.8 H [facility] HospitalRed Blood Qkzcr4037-84-50 16:26:00* Test Item Value Reference Range Interpretation Comments Red Blood Count (test code = 789-8) 4.26 3.6-5.1 [facility] HospitalHemoglobin2019 16:26:00* Test Item Value Reference Range Interpretation Comments Hemoglobin (test code = 93563-1) 11.7 12.0-16.0 L [facility] HospitalHematocrit2019 16:26:00* Test Item Value Reference Range Interpretation Comments Hematocrit (test code = 4544-3) 34.8 34.2-44.1 [facility] HospitalMean Corpuscular Ewxfkt0016-78-29 16:26:00* Test Item Value Reference Range Interpretation Comments Mean Corpuscular Volume (test code = 787-2) 81.7 81-99 [facility] HospitalMean Corpuscular Sweidhltdl4474-96-94 16:26:00* Test Item Value Reference Range Interpretation Comments Mean Corpuscular Hemoglobin (test code = 785-6) 27.5 28-32 L [facility] HospitalMean Corpuscular Hemoglobin Concent 2018-09-02 16:26:00* Test Item Value Reference Range Interpretation Comments Mean Corpuscular Hemoglobin Concent (test code = 786-4) 33.6 31-35 [facility] HospitalRed Cell Distribution Ingan6392-66-78 16:26:00* Test Item Value Reference Range Interpretation Comments Red Cell Distribution Width (test code = 76696-8) 15.0 11.7 -14.4 H [facility] HospitalPlatelet Vomrf0051-82-52 16:26:00* Test Item Value Reference Range Interpretation Comments Platelet Count (test code = 777-3) 315 140-360 [facility] HospitalNeutrophils (%) (Auto)2018-09-02 16:26:00 * Test Item Value Reference Range Interpretation Comments Neutrophils (%) (Auto) (test code = 78874-4) 73.6 38.7-80.0 [facility] HospitalLymphocytes (%) (Auto)2018-09-02 16:26:00 * Test Item Value Reference Range Interpretation Comments Lymphocytes (%) (Auto) (test code = 736-9) 17.8 18.0-39.1 L [facility] HospitalMonocytes (%) (Auto)2018-09-02 16:26:00* Test Item Value Reference Range Interpretation Comments Monocytes (%) (Auto) (test code = 5905-5) 7.4 4.4-11.3 [facility] HospitalEosinophils (%) (Auto)2018-09-02 16:26:00 * Test Item Value Reference Range Interpretation Comments Eosinophils (%) (Auto) (test code = 713-8) 0.4 0.0-6.0 [facility] HospitalBasophils (%) (Auto)2018-09-02 16:26:00* Test Item Value Reference Range Interpretation Comments Basophils (%) (Auto) (test code = 706-2) 0.2 0.0-1.0 [facility] HospitalIM GRANULOCYTES %2018-09-02 16:26:00* Test Item Value Reference Range Interpretation Comments IM GRANULOCYTES % (test code = IM GRANULOCYTES %) 0.6 0.0- 1.0 [facility] HospitalNeutrophils # (Auto)2018-09-02 16:26:00* Test Item Value Reference Range Interpretation Comments Neutrophils # (Auto) (test code = 751-8) 10.1 2.1-6.9 H [facility] HospitalLymphocytes # (Auto)2018-09-02 16:26:00* Test Item Value Reference Range Interpretation Comments Lymphocytes # (Auto) (test code = 87132-0) 2.5 1.0-3.2 [facility] HospitalMonocytes # (Auto)2018-09-02 16:26:00* Test Item Value Reference Range Interpretation Comments Monocytes # (Auto) (test code = 742-7) 1.0 0.2-0.8 H [facility] HospitalEosinophils # (Auto)2018-09-02 16:26:00* Test Item Value Reference Range Interpretation Comments Eosinophils # (Auto) (test code = 711-2) 0.1 0.0-0.4 [facility] HospitalBasophils # (Auto)2018-09-02 16:26:00* Test Item Value Reference Range Interpretation Comments Basophils # (Auto) (test code = 704-7) 0.0 0.0-0.1 [facility] HospitalAbsolute Immature Granulocyte (auto 2018-09-02 16:26:00* Test Item Value Reference Range Interpretation Comments Absolute Immature Granulocyte (auto (oc t code = Absolute Immature Granulocyte (auto) 0.08 0-0.1 [facility] Slpmhud9269-95-78 11:54:00* Test Item Value Reference Range Interpretation Comments Bedside Glucose (test code = 76176-7) 266 70-120 H Meter ID: [id number] Glucose 2018-09-01 11:54:00* Test Item Value Reference Range Interpretation Comments Bedside Glucose (test code = 62768-7) 266 70-120 H Meter ID: [id number] County Memorial HospitalUrine Culture 2018-08-31 06:53:00* Test Item Value Reference Range Interpretation Comments Urine Culture (test code = 630-4) Organism: PSEUDOMONAS AERUGINOSA [facility] Mkhgkzf9486-25-87 06:53:00* Test Item Value Reference Range Interpretation Comments Urine Culture (test code = 630-4) Organism: PSEUDOMONAS AERUGINOSA [facility] Ileeyur4385-46-45 06:53:00* Test Item Value Reference Range Interpretation Comments Urine Culture (test code = 630-4) No Result Data Provided [facility] Vagfvfb0854-93-68 06:53:00* Test Item Value Reference Range Interpretation Comments Urine Culture (test code = 630-4) No Result Data Provided [facility] Fvsuu8186-10-95 08:18:00* Test Item Value Reference Range Interpretation Comments Sodium Level (test code = 2951-2) 135 136-145 L [facility] HospitalPotassium Movnk7794-26-67 08:18:00* Test Item Value Reference Range Interpretation Comments Potassium Level (test code = 2823-3) 3.8 3.5-5.1 [facility] HospitalChloride Rfduj6161-56-93 08:18:00* Test Item Value Reference Range Interpretation Comments Chloride Level (test code = 2075-0) 105 98-107 [facility] HospitalCarbon Dioxide Tauwx5583-83-23 08:18:00* Test Item Value Reference Range Interpretation Comments Carbon Dioxide Level (test code = 2028-9) 23 22-29 [facility] HospitalAnion Hio1623-78-11 08:18:00* Test Item Value Reference Range Interpretation Comments Anion Gap (test code = 59661-5) 10.8 8-16 [facility] HospitalBlood Urea Utcikksi2111-53-06 08:18:00* Test Item Value Reference Range Interpretation Comments Blood Urea Nitrogen (test code = 3094-0) 6 7-26 L [facility] HospitalCreatinine2019-06-06 08:18:00* Test Item Value Reference Range Interpretation Comments Creatinine (test code = 2160-0) 0.83 0.57-1.11 [facility] HospitalBUN/Creatinine Vqksa1301-68-18 08:18:00* Test Item Value Reference Range Interpretation Comments BUN/Creatinine Ratio (test code = 3097-3) 7 6-25 [facility] HospitalEstimat Glomerular Filtration Rate 2018-08-30 08:18:00* Test Item Value Reference Range Interpretation Comments Estimat Glomerular Filtration Rate (test code = 337052716) > 60 >60 Ranges were taken from the National Kidney Disease Education Program and the [facility] Kidney Foundation literature.Reference ranges:60 or greater: Pgkusg58-75 ( for 3 consecutive months): Chronic kidney disease 15 or less: Kidney failureStarr County Memorial HospitalGlucose Hnvyb5239-05-82 08:18:00* Test Item Value Reference Range Interpretation Comments Glucose Level (test code = CQU9549) 133 74-118 H [facility] HospitalCalcium Gmfat2641-37-53 08:18:00* Test Item Value Reference Range Interpretation Comments Calcium Level (test code = 48497-9) 8.7 8.4-10.2 [facility] HospitalWhite Blood Pqyuy8215-30-83 07:52:00* Test Item Value Reference Range Interpretation Comments White Blood Count (test code = 6690-2) 9.31 4.8-10.8 [facility] HospitalRed Blood Hludd3797-82-26 07:52:00* Test Item Value Reference Range Interpretation Comments Red Blood Count (test code = 789-8) 3.71 3.6-5.1 [facility] HospitalHemoglobin2019-06-06 07:52:00* Test Item Value Reference Range Interpretation Comments Hemoglobin (test code = 73963-1) 10.1 12.0-16.0 L [facility] HospitalHematocrit2019-06-06 07:52:00* Test Item Value Reference Range Interpretation Comments Hematocrit (test code = 4544-3) 31.1 34.2-44.1 L [facility] HospitalMean Corpuscular Nbnuzu1604-23-83 07:52:00* Test Item Value Reference Range Interpretation Comments Mean Corpuscular Volume (test code = 787-2) 83.8 81-99 [facility] HospitalMean Corpuscular Sdausqlzjf0753-46-21 07:52:00* Test Item Value Reference Range Interpretation Comments Mean Corpuscular Hemoglobin (test code = 785-6) 27.2 28-32 L [facility] HospitalMean Corpuscular Hemoglobin Concent 2018-08-30 07:52:00* Test Item Value Reference Range Interpretation Comments Mean Corpuscular Hemoglobin Concent (test code = 786-4) 32.5 31-35 [facility] HospitalRed Cell Distribution Ydajk1386-56-23 07:52:00* Test Item Value Reference Range Interpretation Comments Red Cell Distribution Width (test code = 44734-5) 14.5 11.7 -14.4 H [facility] HospitalPlatelet Yxjij9049-86-40 07:52:00* Test Item Value Reference Range Interpretation Comments Platelet Count (test code = 777-3) 248 140-360 [facility] HospitalNeutrophils (%) (Auto)2018-08-30 07:52:00 * Test Item Value Reference Range Interpretation Comments Neutrophils (%) (Auto) (test code = 63245-1) 61.3 38.7-80.0 [facility] HospitalLymphocytes (%) (Auto)2018-08-30 07:52:00 * Test Item Value Reference Range Interpretation Comments Lymphocytes (%) (Auto) (test code = 736-9) 27.7 18.0-39.1 [facility] HospitalMonocytes (%) (Auto)2018-08-30 07:52:00* Test Item Value Reference Range Interpretation Comments Monocytes (%) (Auto) (test code = 5905-5) 7.9 4.4-11.3 [facility] HospitalEosinophils (%) (Auto)2018-08-30 07:52:00 * Test Item Value Reference Range Interpretation Comments Eosinophils (%) (Auto) (test code = 713-8) 2.4 0.0-6.0 [facility] HospitalBasophils (%) (Auto)2018-08-30 07:52:00* Test Item Value Reference Range Interpretation Comments Basophils (%) (Auto) (test code = 706-2) 0.3 0.0-1.0 [facility] HospitalIM GRANULOCYTES %2018-08-30 07:52:00* Test Item Value Reference Range Interpretation Comments IM GRANULOCYTES % (test code = IM GRANULOCYTES %) 0.4 0.0- 1.0 [facility] HospitalNeutrophils # (Auto)2018-08-30 07:52:00* Test Item Value Reference Range Interpretation Comments Neutrophils # (Auto) (test code = 751-8) 5.7 2.1-6.9 [facility] HospitalLymphocytes # (Auto)2018-08-30 07:52:00* Test Item Value Reference Range Interpretation Comments Lymphocytes # (Auto) (test code = 64665-9) 2.6 1.0-3.2 [facility] HospitalMonocytes # (Auto)2018-08-30 07:52:00* Test Item Value Reference Range Interpretation Comments Monocytes # (Auto) (test code = 742-7) 0.7 0.2-0.8 [facility] HospitalEosinophils # (Auto)2018-08-30 07:52:00* Test Item Value Reference Range Interpretation Comments Eosinophils # (Auto) (test code = 711-2) 0.2 0.0-0.4 [facility] HospitalBasophils # (Auto)2018-08-30 07:52:00* Test Item Value Reference Range Interpretation Comments Basophils # (Auto) (test code = 704-7) 0.0 0.0-0.1 [facility] HospitalAbsolute Immature Granulocyte (auto 2018-08-30 07:52:00* Test Item Value Reference Range Interpretation Comments Absolute Immature Granulocyte (auto (oc t code = Absolute Immature Granulocyte (auto) 0.04 0-0.1 [facility] HospitalMagnesium Uhqlh0281-54-67 09:27:00* Test Item Value Reference Range Interpretation Comments Magnesium Level (test code = 52451-6) 1.4 1.3-2.1 [facility] Bfzaq8736-52-97 09:27:00* Test Item Value Reference Range Interpretation Comments Magnesium Level (test code = 77687-2) 1.4 1.3-2.1 [facility] Jedgq7838-41-76 09:27:00* Test Item Value Reference Range Interpretation Comments Magnesium Level (test code = 29112-7) 1.4 1.3-2.1 [facility]2019-06-05 09:27:00* Test Item Value Reference Range Interpretation Comments Magnesium Level (test code = 17708-8) 1.4 1.3-2.1 [facility] HospitalLipase2019-06-04 06:22:00* Test Item Value Reference Range Interpretation Comments Lipase (test code = 3040-3) [facility] HospitalLipase2019-06-04 06:22:00* Test Item Value Reference Range Interpretation Comments Lipase (test code = 3040-3) [facility] HospitalTriglycerides Zwzsb4607-09-75 09:22:00* Test Item Value Reference Range Interpretation Comments Triglycerides Level (test code = 2571-8) 112 0-149 [facility] HospitalCholesterol Ysmmt0881-12-97 09:22:00* Test Item Value Reference Range Interpretation Comments Cholesterol Level (test code = 2093-3) 139 0-199 Less than 200 mg/dL Low Hhra893 - 239 mg/dL Borderline Uxyv786 m g/dl and greater High Risk [facility] HospitalLDL Tevkfklduqb4550-32-73 09:22:00* Test Item Value Reference Range Interpretation Comments LDL Cholesterol (test code = 2089-1) 68 60-130 [facility] HospitalHDL Luyttaqcpdp0258-26-30 09:22:00* Test Item Value Reference Range Interpretation Comments HDL Cholesterol (test code = 2085-9) 49 40-60 [facility] HospitalCholesterol/HDL Suyzf5646-23-71 09:22:00 * Test Item Value Reference Range Interpretation Comments Cholesterol/HDL Ratio (test code = 9830-1) 2.8 3.0-3.6 L [facility] HospitalTriglycerides Jfcra4398-29-95 09:22:00* Test Item Value Reference Range Interpretation Comments Triglycerides Level (test code = 2571-8) 112 0-149 [facility] HospitalCholesterol Dgbzd4956-04-09 09:22:00* Test Item Value Reference Range Interpretation Comments Cholesterol Level (test code = 2093-3) 139 0-199 Less than 200 mg/dL Low Zwuj896 - 239 mg/dL Borderline Xsbd595 m g/dl and greater High Risk [facility] HospitalLDL Ohvopxoppsd9079-98-57 09:22:00* Test Item Value Reference Range Interpretation Comments LDL Cholesterol (test code = 2089-1) 68 60-130 [facility] HospitalHDL Fhawhcmrctg7017-14-03 09:22:00* Test Item Value Reference Range Interpretation Comments HDL Cholesterol (test code = 2085-9) 49 40-60 [facility] HospitalCholesterol/HDL Xxqmt7029-28-28 09:22:00 * Test Item Value Reference Range Interpretation Comments Cholesterol/HDL Ratio (test code = 9830-1) 2.8 3.0-3.6 L [facility] HospitalHemoglobin A1c Mgkmnob9553-62-99 09:06:00 * Test Item Value Reference Range Interpretation Comments Hemoglobin A1c Percent (test code = Hemoglobin A1c Percent) 7.7 4.0-7.0 H [facility] HospitalHemoglobin A1c Tcqkpej1408-49-73 09:06:00 * Test Item Value Reference Range Interpretation Comments Hemoglobin A1c Percent (test code = Hemoglobin A1c Percent) 7.7 4.0-7.0 H [facility] HospitalUrine ZRB7947-75-84 02:08:00* Test Item Value Reference Range Interpretation Comments Urine WBC (test code = 5821-4) 21-50 0-5 H [facility] HospitalUrine MDT1305-73-10 02:08:00* Test Item Value Reference Range Interpretation Comments Urine RBC (test code = 49690-7) 6-10 0-5 H [facility] Xpcuhznk9143-40-13 02:08:00* Test Item Value Reference Range Interpretation Comments Urine Bacteria (test code = 39547-8) FEW NONE [facility] Epithelial Nrhhi6648-01-16 02:08:00 * Test Item Value Reference Range Interpretation Comments Urine Epithelial Cells (test code = 73912-0) FEW NONE [facility] Vvvfh7283-26-37 02:08:00* Test Item Value Reference Range Interpretation Comments Urine Mucus (test code = 8247-9) FEW RARE H [facility] Axplq8158-98-80 02:08:00* Test Item Value Reference Range Interpretation Comments Urine Mucus (test code = 8247-9) FEW RARE H [facility] Mopvt0234-77-20 02:08:00* Test Item Value Reference Range Interpretation Comments Urine Mucus (test code = 8247-9) FEW RARE H [facility] Amltr8826-73-63 02:08:00* Test Item Value Reference Range Interpretation Comments Urine Mucus (test code = 8247-9) FEW RARE H [facility] Wwshz2508-01-31 02:01:00* Test Item Value Reference Range Interpretation Comments Urine Color (test code = 5778-6) YELLOW YELLOW [facility] Oybdulw4924-42-88 02:01:00* Test Item Value Reference Range Interpretation Comments Urine Clarity (test code = 31802-3) CLEAR CLEAR [facility] Specific Pytjrvz9886-64-67 02:01:00 * Test Item Value Reference Range Interpretation Comments Urine Specific [place] (test code = 5811-5) <=1.005 1.010-1.02 5 [facility] mR9469-21-13 02:01:00* Test Item Value Reference Range Interpretation Comments Urine pH (test code = 58076-1) 7 5-7 [facility] HospitalUrine Leukocyte Jikffhri5348-60-52 02:01:00* Test Item Value Reference Range Interpretation Comments Urine Leukocyte Esterase (test code = 26611-7) TRACE NEGATIV E H [facility] HospitalUrine Mffjlxr0001-21-61 02:01:00* Test Item Value Reference Range Interpretation Comments Urine Nitrite (test code = 08381-3) NEGATIVE NEGATIVE [facility] HospitalUrine Pzkhfle1558-59-07 02:01:00* Test Item Value Reference Range Interpretation Comments Urine Protein (test code = 96671-4) NEGATIVE NEGATIVE [facility] HospitalUrine Glucose (UA)2018-08-27 02:01:00* Test Item Value Reference Range Interpretation Comments Urine Glucose (UA) (test code = 12742-1) NEGATIVE NEGATIVE [facility] HospitalUrine Nohyguf0817-34-53 02:01:00* Test Item Value Reference Range Interpretation Comments Urine Ketones (test code = 04313-5) NEGATIVE NEGATIVE [facility] HospitalUrine Iblleulvoxwl0011-43-69 02:01:00* Test Item Value Reference Range Interpretation Comments Urine Urobilinogen (test code = 57118-1) 0.2 0.2-1 [facility] HospitalUrine Fycpbvthe7031-40-08 02:01:00* Test Item Value Reference Range Interpretation Comments Urine Bilirubin (test code = 1977-8) NEGATIVE NEGATIVE [facility] HospitalUrine Tkbsy8203-80-27 02:01:00* Test Item Value Reference Range Interpretation Comments Urine Blood (test code = 76362-4) NEGATIVE NEGATIVE [facility] HospitalCT ABDOMEN/PELVIS V5798-15-65 01:56:00 [facility] [address] [place] [address] Patient Name: VIDA HOBBS MR #: [id number] : 1945 Age/Sex: 73/F Req #: [id number] Adm Physician: Ordered by: DESIRE CARDOSO MD Report #: [id number] Location: ER Room/Bed: Procedure: [id number] C T/CT ABDOMEN/PELVIS W Exam Date: Exam [...] 202 COPY TO: DESIRE CARDOSO MD Total Estahrixs1303-12-49 00:31:00* Test Item Value Reference Range Interpretation Comments Total Bilirubin (test code = 1975-2) 0.8 0.2-1.2 [facility] HospitalAspartate Amino Transf (AST/SGOT) 2018-08-27 00:31:00* Test Item Value Reference Range Interpretation Comments Aspartate Amino Transf (AST/SGOT) (test code = Aspartate Amino Transf (AST/SGOT)) 28 5-34 [facility] HospitalAlanine Aminotransferase (ALT/SGPT) 2018-08-27 00:31:00* Test Item Value Reference Range Interpretation Comments Alanine Aminotransferase (ALT/SGPT) (test code = 1742-6) 21 0-55 [facility] HospitalTotal Estdlgl0723-98-22 00:31:00* Test Item Value Reference Range Interpretation Comments Total Protein (test code = 2885-2) 8.3 6.5-8.1 H [facility] HospitalAlbumin2019-06-03 00:31:00* Test Item Value Reference Range Interpretation Comments Albumin (test code = 1751-7) 3.5 3.5-5.0 [facility] HospitalGlobulin2019-06-03 00:31:00* Test Item Value Reference Range Interpretation Comments Globulin (test code = 06343-6) 4.8 2.3-3.5 H [facility] HospitalAlbumin/Globulin Hwett9679-06-25 00:31:00 * Test Item Value Reference Range Interpretation Comments Albumin/Globulin Ratio (test code = 1759-0) 0.7 0.8-2.0 L [facility] HospitalAlkaline Oovjvpullae8143-55-45 00:31:00* Test Item Value Reference Range Interpretation Comments Alkaline Phosphatase (test code = 6768-6) 131 40-150 [facility] HospitalAmylase Anfha8794-26-46 00:31:00* Test Item Value Reference Range Interpretation Comments Amylase Level (test code = 1798-8) 215 25-125 H [facility] HospitalTotal Snduqwlrv7835-65-66 00:31:00* Test Item Value Reference Range Interpretation Comments Total Bilirubin (test code = 1975-2) 0.8 0.2-1.2 [facility] HospitalAspartate Amino Transf (AST/SGOT) 2018-08-27 00:31:00* Test Item Value Reference Range Interpretation Comments Aspartate Amino Transf (AST/SGOT) (test code = Aspartate Amino Transf (AST/SGOT)) 28 5-34 [facility] HospitalAlanine Aminotransferase (ALT/SGPT) 2018-08-27 00:31:00* Test Item Value Reference Range Interpretation Comments Alanine Aminotransferase (ALT/SGPT) (test code = 1742-6) 21 0-55 [facility] HospitalTotal Dzmzwsg5703-95-65 00:31:00* Test Item Value Reference Range Interpretation Comments Total Protein (test code = 2885-2) 8.3 6.5-8.1 H [facility] HospitalAlbumin2019-06-03 00:31:00* Test Item Value Reference Range Interpretation Comments Albumin (test code = 1751-7) 3.5 3.5-5.0 [facility] HospitalGlobulin2019-06-03 00:31:00* Test Item Value Reference Range Interpretation Comments Globulin (test code = 05732-9) 4.8 2.3-3.5 H [facility] HospitalAlbumin/Globulin Hkqmc9746-90-45 00:31:00 * Test Item Value Reference Range Interpretation Comments Albumin/Globulin Ratio (test code = 1759-0) 0.7 0.8-2.0 L [facility] HospitalAlkaline Vqwmgyspgvs3033-34-61 00:31:00* Test Item Value Reference Range Interpretation Comments Alkaline Phosphatase (test code = 6768-6) 131 40-150 [facility] HospitalAmylase Kroba8432-53-63 00:31:00* Test Item Value Reference Range Interpretation Comments Amylase Level (test code = 1798-8) 215 25-125 [facility]
== END 2020-01-28 21:14 | disposition home or self-care (01) ==
LOC: ER 20:06
DX: I10 Essential (primary) hypertension (principal); E11.65 Type 2 diabetes mellitus with hyperglycemia; E78.5 Hyperlipidemia, unspecified; M10.9 Gout, unspecified; R94.31 Abnormal electrocardiogram [ECG] [EKG]; Z87.19 Personal history of other diseases of the digestive system
CPT/HCPCS: 36415; 80053; 81001; 85025; 93005; 99283

== ENCOUNTER → 2020-03-31 | Outpatient (CLI) | payer MEDICARE ==
[~2020-03-31] MED LIST changes: +REGADENOSON 0.4 MG/5 ML SYR IV ONE
== END ==
LOC: NM 07:48
PROVIDERS: ATTEND Internal Medicine Interventional Cardiology
DX: I50.9 Heart failure, unspecified (principal); I44.7 Left bundle-branch block, unspecified
CPT/HCPCS: 78452; 93017; A9502; J2785

== ENCOUNTER 2021-01-31 17:47 | Emergency (ER) | payer MEDICARE ==
[~2021-01-31] VITALS: Ht 152.4 cm; Wt 86.6 kg
[~2021-01-31 17:47] MED LIST changes: -REGADENOSON 0.4 MG/5 ML SYR IV ONE
[2021-01-31] MEDS ORDERED: ONDANSETRON HCL INJ 2MG/ML 2ML 2 MG/ML VIAL IV STA (17:55)
[2021-01-31] MEDS ORDERED: SODIUM CHLORIDE 0.9% 1000ML 1,000 ML IV STA ×2 (17:55→20:30)
[2021-01-31 18:12] LABS: BASOPHILS % 0.1 % (0.0-1.0); EOSINOPHILS # (AUTO) 0.1 (0.0-0.4); EOSINOPHILS % 0.6 % (0.0-6.0); HEMATOCRIT 39.6 % (34.2-44.1); HEMOGLOBIN 12.6 g/dL (12.0-16.0); LYMPHOCYTES % 13.1 % (18.0-39.1); MEAN CORPUSCULAR HEMOGLOBIN 26.8 pg (28-32); MEAN CORPUSCULAR HGB CONC 31.8 g/dL (31-35); MEAN CORPUSCULAR VOLUME 84.3 fL (81-99); MONOCYTES # (AUTO) 0.9 (0.2-0.8); MONOCYTES % 5.8 % (4.4-11.3); NEUTROPHILS # (AUTO) 12.3 (2.1-6.9); PLATELET COUNT 267 x10e3/uL (140-360); RED CELL DISTRIBUTION WIDTH 14.7 % (11.7-14.4)
[2021-01-31 18:19] LABS: CLARITY,URINE HAZY (CLEAR); COLOR,URINE YELLOW (YELLOW); KETONES,URINE TRACE (NEGATIVE); LEUKOCYTE ESTERASE ,URINE TRACE (NEGATIVE); NITRITE,URINE NEGATIVE (NEGATIVE); PROTEIN,URINE DIPSTICK >=300 (NEGATIVE); URINE UROBILINOGEN 0.2 mg/dL (0.2 - 1)
[2021-01-31 18:26] LABS: WBC,URINE (MAN) 21-50 /HPF (0-5)
[2021-01-31 18:27] LABS: AMORPHOUS SEDIMENT,URINE FEW (FEW); BACTERIA,URINE MANY /HPF; EPITHELIAL CELLS,URINE MODERATE /LPF; MUCUS,URINE FEW (RARE)
[2021-01-31 18:32] LABS: ALBUMIN 3.3 g/dL (3.5-5.0); ALBUMIN/GLOBULIN RATIO 0.7 (0.8-2.0); CREATININE, SERUM 1.13 mg/dL (0.57-1.11)
[2021-01-31 18:39] LABS: CREATINE KINASE MB 0.3 ng/mL (0-5.0)
[2021-01-31] MEDS ORDERED: SODIUM CHLORIDE 0.9% 50ML 50 ML ONE (18:58)
[2021-01-31] MEDS ORDERED: IOPAMIDOL 370 MG/ML 200 ML INFUS..BTL INJ ONE (18:58)
[2021-01-31] MEDS ORDERED: SODIUM CHLORIDE 0.9% 1000ML 1,000 ML ONE (20:42)
[2021-01-31] MEDS ORDERED: CIPRO500 MG PO (21:40)
[2021-01-31] MEDS ORDERED: ONDANSETRON ODT4 MG PO (21:40)
[2021-01-31] MEDS ORDERED: METRONIDAZOLE500 MG PO (21:40)
[2021-01-31 22:25] VITALS: BP 140/65
[2021-02-01] MEDS ORDERED: SODIUM CHLORIDE 0.9% 50ML 50 ML ONE (00:03)
[2021-02-01] MEDS ORDERED: IOPAMIDOL 370 MG/ML 200 ML INFUS..BTL INJ ONE (00:03)
== END 2021-01-31 22:00 | disposition home or self-care (01) ==
LOC: ER 17:53
DX: R19.7 Diarrhea, unspecified (principal); K57.32 Diverticulitis of large intestine without perforation or abscess without bleeding; R10.30 Lower abdominal pain, unspecified; R11.2 Nausea with vomiting, unspecified; I10 Essential (primary) hypertension; E11.65 Type 2 diabetes mellitus with hyperglycemia; E78.5 Hyperlipidemia, unspecified; M10.9 Gout, unspecified; Z20.822 Contact with and (suspected) exposure to COVID-19
CPT/HCPCS: 36415; 74177; 80053; 81001; 82550; 82553; 84484; 85025; 93005; 99283; J2405; J7030; Q9967; U0002

== ENCOUNTER 2021-02-24 02:58 | Inpatient (IN) | payer MEDICARE ==
[~2021-02-24] VITALS: Ht 152.4 cm; Wt 83.9 kg
[2021-02-24] VITALS (7 sets, daily range): BP systolic 143–170; BP diastolic 56–70
[~2021-02-24 02:58] MED LIST changes: +METRONIDAZOLE500 MG PO; +ONDANSETRON ODT4 MG PO
[2021-02-24] MEDS ORDERED: ONDANSETRON HCL INJ 2MG/ML 2ML 2 MG/ML VIAL IV STA (03:18)
[2021-02-24 03:45] LABS: BASOPHILS % 0.4 % (0.0-1.0); EOSINOPHILS % 0.4 % (0.0-6.0); HEMATOCRIT 35.6 % (34.2-44.1); HEMOGLOBIN 11.2 g/dL (12.0-16.0); LYMPHOCYTES # (AUTO) 2.7 (1.0-3.2); LYMPHOCYTES % 24.3 % (18.0-39.1); MEAN CORPUSCULAR HEMOGLOBIN 26.4 pg (28-32); MEAN CORPUSCULAR HGB CONC 31.5 g/dL (31-35); MEAN CORPUSCULAR VOLUME 83.8 fL (81-99); MONOCYTES # (AUTO) 0.7 (0.2-0.8); MONOCYTES % 5.9 % (4.4-11.3); NEUTROPHILS # (AUTO) 7.7 (2.1-6.9); NEUTROPHILS % 68.5 % (38.7-80.0); PLATELET COUNT 265 x10e3/uL (140-360); RED BLOOD COUNT 4.25 x10e6/uL (3.6-5.1); RED CELL DISTRIBUTION WIDTH 14.7 % (11.7-14.4)
[2021-02-24 04:03] LABS: AMYLASE 384 U/L (25-125); LIPASE 948 U/L (8-78)
[2021-02-24 04:05] LABS: ALBUMIN 3.2 g/dL (3.5-5.0); ALBUMIN/GLOBULIN RATIO 0.8 (0.8-2.0); ANION GAP 14.9 mmol/L (8-16); CALCIUM 8.5 mg/dL (8.4-10.2); CREATININE, SERUM 1.11 mg/dL (0.57-1.11); POTASSIUM 3.9 mmol/L (3.5-5.1)
[2021-02-24] MEDS ORDERED: SODIUM CHLORIDE 0.9% 1000ML 1,000 ML IV ONE (04:30)
[2021-02-24 04:32] LABS: CLARITY,URINE CLOUDY (CLEAR); COLOR,URINE YELLOW (YELLOW)
[2021-02-24] MEDS ORDERED: SODIUM CHLORIDE 0.9% 50ML 50 ML ONE (04:32)
[2021-02-24 04:33] LABS: KETONES,URINE NEGATIVE (NEGATIVE); LEUKOCYTE ESTERASE ,URINE SMALL (NEGATIVE); NITRITE,URINE POSITIVE (NEGATIVE); PROTEIN,URINE DIPSTICK 1+ (NEGATIVE); URINE UROBILINOGEN 0.2 mg/dL (0.2 - 1)
[2021-02-24] MEDS ORDERED: IOPAMIDOL 370 MG/ML 200 ML INFUS..BTL INJ ONE (04:33)
[2021-02-24] MEDS ORDERED: SODIUM CHLORIDE 0.9% 1000ML 1,000 ML ONE (04:33)
[2021-02-24 04:41] LABS: BACTERIA,URINE MANY /HPF; EPITHELIAL CELLS,URINE MANY /LPF; RBC,URINE 0-5 /HPF (0-5); WBC,URINE (MAN) >50 /HPF (0-5)
[2021-02-24] MEDS ORDERED: CEFTRIAXONE 1 GM in SODIUM CHLORIDE 0.9% 50ML 50 ML IV SCH (05:15)
[2021-02-24] MEDS ORDERED: Morphine 2mg Syringe 2 MG/ML SYR IV PRN ×2 (07:00)
[2021-02-24] MEDS ORDERED: METRONIDAZOLE 500MG/NS 100ML IV SCH (07:00)
[2021-02-24] MEDS: SODIUM CHLORIDE 0.9% 1000ML 1,000 ML IV SCH ×2 (07:39→21:02)
[2021-02-24] MEDS: METRONIDAZOLE 500 MG TAB PO SCH ×3 (07:41→17:05)
[2021-02-24 08:10] LABS: CREATINE KINASE MB 0.4 ng/mL (0-5.0)
[2021-02-24 08:47] LABS: CHOL/HDL RATIO 2.3 (3.0-3.6)
[2021-02-24 16:59] LABS: CREATINE KINASE MB 0.7 ng/mL (0-5.0)
[2021-02-24] MEDS: CEFTRIAXONE 1 GM in SODIUM CHLORIDE 0.9% 50ML 50 ML IV SCH (17:05)
[2021-02-25] VITALS (8 sets, daily range): BP systolic 131–174; BP diastolic 61–84
[2021-02-25] MEDS: CEFTRIAXONE 1 GM in SODIUM CHLORIDE 0.9% 50ML 50 ML IV SCH ×2 (05:00→16:19)
[2021-02-25] MEDS: METRONIDAZOLE 500 MG TAB PO SCH ×4 (05:34→17:14)
[2021-02-25 05:41] LABS: BASOPHILS % 0.2 % (0.0-1.0); EOSINOPHILS # (AUTO) 0.1 (0.0-0.4); EOSINOPHILS % 1.5 % (0.0-6.0); HEMATOCRIT 32.5 % (34.2-44.1); HEMOGLOBIN 10.5 g/dL (12.0-16.0); LYMPHOCYTES # (AUTO) 2.2 (1.0-3.2); LYMPHOCYTES % 27.1 % (18.0-39.1); MEAN CORPUSCULAR HEMOGLOBIN 26.3 pg (28-32); MEAN CORPUSCULAR HGB CONC 32.3 g/dL (31-35); MEAN CORPUSCULAR VOLUME 81.5 fL (81-99); MONOCYTES # (AUTO) 0.6 (0.2-0.8); MONOCYTES % 6.7 % (4.4-11.3); NEUTROPHILS # (AUTO) 5.2 (2.1-6.9); NEUTROPHILS % 64.1 % (38.7-80.0); PLATELET COUNT 227 x10e3/uL (140-360); RED BLOOD COUNT 3.99 x10e6/uL (3.6-5.1); RED CELL DISTRIBUTION WIDTH 14.8 % (11.7-14.4)
[2021-02-25 06:02] LABS: ALBUMIN 2.7 g/dL (3.5-5.0); ALBUMIN/GLOBULIN RATIO 0.8 (0.8-2.0); ANION GAP 11.9 mmol/L (8-16); CALCIUM 8.3 mg/dL (8.4-10.2); CREATININE, SERUM 0.89 mg/dL (0.57-1.11); POTASSIUM 3.9 mmol/L (3.5-5.1)
[2021-02-25 06:37] LABS: CREATINE KINASE MB 0.5 ng/mL (0-5.0)
[2021-02-25] MEDS: SODIUM CHLORIDE 0.9% 1000ML 1,000 ML IV SCH ×2 (09:40→20:50)
[2021-02-25] MEDS: NEOMYCIN SULFATE 500 MG TAB PO SCH ×2 (11:00→17:14)
[2021-02-25] MEDS ORDERED: CITRATE OF MAGNESIA 300ML BOTTLE PO ONE (12:00)
[2021-02-26] VITALS (13 sets, daily range): BP systolic 100–163; BP diastolic 52–81
[2021-02-26] MEDS: METRONIDAZOLE 500 MG TAB PO SCH ×4 (00:06→17:57)
[2021-02-26] MEDS: NEOMYCIN SULFATE 500 MG TAB PO SCH (00:06)
[2021-02-26] MEDS: CEFTRIAXONE 1 GM in SODIUM CHLORIDE 0.9% 50ML 50 ML IV SCH ×2 (04:11→17:50)
[2021-02-26] MEDS: HYDRALAZINE HCL 25 MG TAB PO SCH ×3 (09:00→20:10)
[2021-02-26] MEDS: SODIUM CHLORIDE 0.9% 1000ML 1,000 ML IV SCH (12:20)
[2021-02-26] MEDS ORDERED: BUPIVACAINE HCL 0.5% INJ 30 ML VIAL INJ ONE (13:01)
[2021-02-26] MEDS ORDERED: MIDAZOLAM HCL 2 MG/2 ML VIAL ONE (13:52)
[2021-02-26] MEDS ORDERED: FENTANYL CITRATE/PF 100MCG/2 ML INJ ONE ×2 (13:52→17:11)
[2021-02-26] MEDS ORDERED: SEVOFLURANE INHAL SOLN 250 ML PEN BTL ONE (14:11)
[2021-02-26] MEDS ORDERED: LIDOCAINE HCL 2% LOCAL INJ 5 ML SDV VIAL INJ ONE (14:11)
[2021-02-26] MEDS ORDERED: POVIDONE IODINE 0.05% 0.05 % ML PO ONE (14:11)
[2021-02-26] MEDS ORDERED: PROPOFOL IV EMULSION 10 MG/ML 20 ML VIAL ONE (14:11)
[2021-02-26] MEDS ORDERED: ROCURONIUM BROMIDE 10 MG/ML 5ML VIAL IV ONE (14:11)
[2021-02-26] MEDS ORDERED: DEXAMETHASONE SOD PHOS INJ 4 MG/ML SDV ONE (14:11)
[2021-02-26] MEDS ORDERED: KETOROLAC TROMETHAMINE 30 MG/ML VIAL ONE (14:11)
[2021-02-26] MEDS ORDERED: ONDANSETRON HCL INJ 2MG/ML 2ML 2 MG/ML VIAL ONE ×2 (14:11→17:28)
[2021-02-26] MEDS ORDERED: NEOSTIGMINE 1 MG/ML 10ML VIAL ONE (14:11)
[2021-02-26] MEDS ORDERED: ATROPINE SULFATE 1 MG/ML VIAL ONE (14:11)
[2021-02-26] MEDS ORDERED: MORPHINE SULFATE 1 MG/ML 30ML PCA IV PRN (16:30)
[2021-02-26] MEDS ORDERED: NALOXONE HCL INJ 0.4 MG/ML AMP IV PRN (16:30)
[2021-02-26] MEDS ORDERED: ACETAMINOPHEN 1000 MG/100 ML IV PRN (16:30)
[2021-02-26] MEDS ORDERED: ONDANSETRON HCL INJ 2MG/ML 2ML 2 MG/ML VIAL IV PRN (16:30)
[2021-02-26] MEDS ORDERED: DIPHENHYDRAMINE HCL INJ 50 MG/ML VIAL IM PRN (16:30)
[2021-02-26] MEDS ORDERED: MORPHINE SULFATE 1 MG/ML 30ML PCA ONE (16:52)
[2021-02-26] MEDS ORDERED: METOCLOPRAMIDE HCL 10 MG/2ML VIAL ONE (17:28)
[2021-02-26] MEDS: LACTATED RINGER'S 1,000 ML INJ SCH (17:50)
[2021-02-27] VITALS (8 sets, daily range): BP systolic 102–133; BP diastolic 51–87
[2021-02-27] MEDS: METRONIDAZOLE 500 MG TAB PO SCH ×4 (00:29→17:59)
[2021-02-27] MEDS: LACTATED RINGER'S 1,000 ML INJ SCH ×3 (00:41→16:30)
[2021-02-27] MEDS: SODIUM CHLORIDE 0.9% 1000ML 1,000 ML IV SCH (01:40)
[2021-02-27 04:56] LABS: BASOPHILS # (AUTO) 0.1 (0.0-0.1); BASOPHILS % 0.3 % (0.0-1.0); HEMATOCRIT 32.8 % (34.2-44.1); HEMOGLOBIN 10.6 g/dL (12.0-16.0); LYMPHOCYTES # (AUTO) 1.3 (1.0-3.2); LYMPHOCYTES % 6.7 % (18.0-39.1); MEAN CORPUSCULAR HEMOGLOBIN 26.9 pg (28-32); MEAN CORPUSCULAR HGB CONC 32.3 g/dL (31-35); MEAN CORPUSCULAR VOLUME 83.2 fL (81-99); MONOCYTES % 5.1 % (4.4-11.3); NEUTROPHILS # (AUTO) 17.5 (2.1-6.9); NEUTROPHILS % 87.5 % (38.7-80.0); PLATELET COUNT 236 x10e3/uL (140-360); RED BLOOD COUNT 3.94 x10e6/uL (3.6-5.1); RED CELL DISTRIBUTION WIDTH 15.3 % (11.7-14.4)
[2021-02-27] MEDS: CEFTRIAXONE 1 GM in SODIUM CHLORIDE 0.9% 50ML 50 ML IV SCH ×2 (05:06→17:30)
[2021-02-27 05:23] LABS: ANION GAP 15.7 mmol/L (8-16); CALCIUM 7.8 mg/dL (8.4-10.2)
[2021-02-27 05:28] LABS: CREATININE, SERUM 1.99 mg/dL (0.57-1.11); POTASSIUM 4.7 mmol/L (3.5-5.1)
[2021-02-27] MEDS: HYDRALAZINE HCL 25 MG TAB PO SCH ×3 (09:00→20:52)
[2021-02-27 12:21] LABS: ANION GAP 14.5 mmol/L (8-16); CALCIUM 7.5 mg/dL (8.4-10.2); CREATININE, SERUM 2.71 mg/dL (0.57-1.11); POTASSIUM 4.5 mmol/L (3.5-5.1)
[2021-02-27] MEDS ORDERED: DEXTROSE 50% SYRINGE 50 ML IV PRN (13:00)
[2021-02-27] MEDS ORDERED: SODIUM CHLORIDE 0.9% 1000ML 500 ML IV ONE (13:00)
[2021-02-27] MEDS: INSULIN LISPRO 100 UNIT/1 ML 3ML VIAL SQ SCH ×2 (17:30→20:52)
[2021-02-27 21:10] LABS: BASOPHILS % 0.1 % (0.0-1.0); EOSINOPHILS % 0.3 % (0.0-6.0); HEMOGLOBIN 8.2 g/dL (12.0-16.0); LYMPHOCYTES # (AUTO) 2.1 (1.0-3.2); LYMPHOCYTES % 14.4 % (18.0-39.1); MEAN CORPUSCULAR HEMOGLOBIN 26.9 pg (28-32); MEAN CORPUSCULAR HGB CONC 31.5 g/dL (31-35); MEAN CORPUSCULAR VOLUME 85.2 fL (81-99); MONOCYTES # (AUTO) 0.7 (0.2-0.8); MONOCYTES % 4.9 % (4.4-11.3); NEUTROPHILS # (AUTO) 11.6 (2.1-6.9); NEUTROPHILS % 79.8 % (38.7-80.0); PLATELET COUNT 143 x10e3/uL (140-360); RED BLOOD COUNT 3.05 x10e6/uL (3.6-5.1); RED CELL DISTRIBUTION WIDTH 15.7 % (11.7-14.4)
[2021-02-27 21:24] LABS: CALCIUM 7.4 mg/dL (8.4-10.2); CREATININE, SERUM 2.16 mg/dL (0.57-1.11)
[2021-02-27] MEDS ORDERED: NICOTINE POLACRILEX 2 MG LOZG #24 MM PRN (22:15)
[2021-02-27] MEDS ORDERED: CEPACOL SORE THROAT LOZENGES PO PRN (23:30)
[2021-02-28] VITALS (8 sets, daily range): BP systolic 131–154; BP diastolic 58–78
[2021-02-28] MEDS: LACTATED RINGER'S 1,000 ML INJ SCH ×3 (01:30→16:30)
[2021-02-28] MEDS: CEFTRIAXONE 1 GM in SODIUM CHLORIDE 0.9% 50ML 50 ML IV SCH ×2 (05:00→18:21)
[2021-02-28] MEDS: METRONIDAZOLE 500 MG TAB PO SCH ×4 (06:00→18:21)
[2021-02-28 07:24] LABS: HEMATOCRIT 27.9 % (34.2-44.1); HEMOGLOBIN 8.6 g/dL (12.0-16.0); MEAN CORPUSCULAR HEMOGLOBIN 26.6 pg (28-32); MEAN CORPUSCULAR HGB CONC 30.8 g/dL (31-35); MEAN CORPUSCULAR VOLUME 86.4 fL (81-99); PLATELET COUNT 149 x10e3/uL (140-360); RED BLOOD COUNT 3.23 x10e6/uL (3.6-5.1); RED CELL DISTRIBUTION WIDTH 15.7 % (11.7-14.4)
[2021-02-28 07:48] LABS: ANION GAP 15.1 mmol/L (8-16); CREATININE, SERUM 1.45 mg/dL (0.57-1.11); POTASSIUM 4.1 mmol/L (3.5-5.1)
[2021-02-28] MEDS: INSULIN LISPRO 100 UNIT/1 ML 3ML VIAL SQ SCH ×4 (08:00→21:00)
[2021-02-28 08:33] LABS: HYPOCHROMASIA SLIGHT; LYMPHOCYTES % (MANUAL) 6 % (19-48); MONOCYTES % (MANUAL) 4 % (3.4-9.0); NEUTROPHILS % (MANUAL) 86 % (40-74); PLATELET ESTIMATE ADEQUATE; PLATELET MORPHOLOGY COMMENT NORMAL; RBC MORPHOLOGY COMMENT NORMAL
[2021-02-28] MEDS: HYDRALAZINE HCL 25 MG TAB PO SCH ×3 (10:00→21:00)
[2021-02-28 13:54] LABS: HEMATOCRIT 26.5 % (34.2-44.1); HEMOGLOBIN 8.2 g/dL (12.0-16.0); MEAN CORPUSCULAR HEMOGLOBIN 26.5 pg (28-32); MEAN CORPUSCULAR HGB CONC 30.9 g/dL (31-35); MEAN CORPUSCULAR VOLUME 85.8 fL (81-99); PLATELET COUNT 144 x10e3/uL (140-360); RED BLOOD COUNT 3.09 x10e6/uL (3.6-5.1); RED CELL DISTRIBUTION WIDTH 15.7 % (11.7-14.4)
[2021-02-28 13:58] LABS: BASOPHILS % 0.1 % (0.0-1.0); EOSINOPHILS # (AUTO) 0.2 (0.0-0.4); EOSINOPHILS % 1.2 % (0.0-6.0); LYMPHOCYTES % 12.7 % (18.0-39.1); MONOCYTES # (AUTO) 0.7 (0.2-0.8); MONOCYTES % 4.2 % (4.4-11.3); NEUTROPHILS # (AUTO) 12.7 (2.1-6.9); NEUTROPHILS % 81.1 % (38.7-80.0)
[2021-02-28] MEDS ORDERED: ONDANSETRON HCL 4 MG ORAL DISINTEGRATING TAB PO PRN (16:45)
[2021-03-01] VITALS (8 sets, daily range): BP systolic 129–157; BP diastolic 56–75
[2021-03-01] MEDS: METRONIDAZOLE 500 MG TAB PO SCH ×5 (00:20→23:08)
[2021-03-01] MEDS: LACTATED RINGER'S 1,000 ML INJ SCH ×3 (00:43→17:13)
[2021-03-01] MEDS: CEFTRIAXONE 1 GM in SODIUM CHLORIDE 0.9% 50ML 50 ML IV SCH ×2 (05:00→17:13)
[2021-03-01 06:10] LABS: HEMATOCRIT 26.5 % (34.2-44.1); HEMOGLOBIN 8.5 g/dL (12.0-16.0); MEAN CORPUSCULAR HGB CONC 32.1 g/dL (31-35); MEAN CORPUSCULAR VOLUME 84.1 fL (81-99); PLATELET COUNT 139 x10e3/uL (140-360); RED BLOOD COUNT 3.15 x10e6/uL (3.6-5.1); RED CELL DISTRIBUTION WIDTH 15.7 % (11.7-14.4)
[2021-03-01 06:38] LABS: ANION GAP 12.8 mmol/L (8-16); CALCIUM 8.1 mg/dL (8.4-10.2); CREATININE, SERUM 0.84 mg/dL (0.57-1.11); POTASSIUM 3.8 mmol/L (3.5-5.1)
[2021-03-01] MEDS: INSULIN LISPRO 100 UNIT/1 ML 3ML VIAL SQ SCH ×4 (08:15→20:48)
[2021-03-01] MEDS: HYDRALAZINE HCL 25 MG TAB PO SCH ×3 (08:53→20:50)
[2021-03-01 10:59] LABS: EOSINOPHILS % (MANUAL) 3 % (0-7); LYMPHOCYTES % (MANUAL) 8 % (19-48); MONOCYTES % (MANUAL) 4 % (3.4-9.0); NEUTROPHILS % (MANUAL) 85 % (40-74)
[2021-03-01 11:00] LABS: PLATELET ESTIMATE SLIGHTLY DECREASED; PLATELET MORPHOLOGY COMMENT NORMAL; RBC MORPHOLOGY COMMENT NORMAL
[2021-03-01] MEDS: HYDROCODONE/APAP 5MG-325MG TAB PO PRN (11:35)
[2021-03-01] MEDS: GUAIFENESIN/DEXTROMETHORPHAN LIQD 5 ML UDC PO PRN (23:08)
[2021-03-02] VITALS (8 sets, daily range): BP systolic 138–155; BP diastolic 59–73
[2021-03-02] MEDS: LACTATED RINGER'S 1,000 ML INJ SCH (02:00)
[2021-03-02] MEDS: CEFTRIAXONE 1 GM in SODIUM CHLORIDE 0.9% 50ML 50 ML IV SCH ×2 (05:00→17:29)
[2021-03-02] MEDS: METRONIDAZOLE 500 MG TAB PO SCH ×4 (05:24→23:42)
[2021-03-02] MEDS: BENZONATATE 100 MG CAP PO SCH ×3 (05:24→22:00)
[2021-03-02] MEDS ORDERED: SODIUM CHLORIDE FLUSH 10 ML SYR INJ PRN (06:30)
[2021-03-02] MEDS: INSULIN LISPRO 100 UNIT/1 ML 3ML VIAL SQ SCH ×4 (07:30→20:41)
[2021-03-02 08:12] LABS: BASOPHILS % 0.1 % (0.0-1.0); EOSINOPHILS # (AUTO) 0.1 (0.0-0.4); EOSINOPHILS % 0.6 % (0.0-6.0); HEMATOCRIT 29.2 % (34.2-44.1); HEMOGLOBIN 9.2 g/dL (12.0-16.0); LYMPHOCYTES # (AUTO) 1.4 (1.0-3.2); LYMPHOCYTES % 9.2 % (18.0-39.1); MEAN CORPUSCULAR HEMOGLOBIN 26.6 pg (28-32); MEAN CORPUSCULAR HGB CONC 31.5 g/dL (31-35); MEAN CORPUSCULAR VOLUME 84.4 fL (81-99); MONOCYTES # (AUTO) 0.7 (0.2-0.8); NEUTROPHILS # (AUTO) 12.3 (2.1-6.9); NEUTROPHILS % 84.2 % (38.7-80.0); PLATELET COUNT 210 x10e3/uL (140-360); RED BLOOD COUNT 3.46 x10e6/uL (3.6-5.1); RED CELL DISTRIBUTION WIDTH 15.5 % (11.7-14.4)
[2021-03-02 08:52] LABS: ANION GAP 14.8 mmol/L (8-16); CALCIUM 8.5 mg/dL (8.4-10.2); CREATININE, SERUM 0.8 mg/dL (0.57-1.11); POTASSIUM 3.8 mmol/L (3.5-5.1)
[2021-03-02] MEDS: HYDRALAZINE HCL 25 MG TAB PO SCH ×3 (09:14→20:41)
[2021-03-02] MEDS: GUAIFENESIN/DEXTROMETHORPHAN LIQD 5 ML UDC PO PRN (18:29)
[2021-03-02] MEDS: NYSTATIN SUSPENSION 5 ML UDC PO SCH (20:41)
[2021-03-03] VITALS (7 sets, daily range): BP systolic 146–170; BP diastolic 63–71
[2021-03-03] MEDS: GUAIFENESIN/DEXTROMETHORPHAN LIQD 5 ML UDC PO PRN ×2 (03:38→11:10)
[2021-03-03] MEDS: CEFTRIAXONE 1 GM in SODIUM CHLORIDE 0.9% 50ML 50 ML IV SCH ×2 (05:00→17:00)
[2021-03-03] MEDS: BENZONATATE 100 MG CAP PO SCH ×3 (05:39→21:08)
[2021-03-03] MEDS: METRONIDAZOLE 500 MG TAB PO SCH (05:39)
[2021-03-03] MEDS: INSULIN LISPRO 100 UNIT/1 ML 3ML VIAL SQ SCH ×4 (07:55→20:52)
[2021-03-03] MEDS: HYDRALAZINE HCL 25 MG TAB PO SCH ×3 (07:58→20:35)
[2021-03-03] MEDS: NYSTATIN SUSPENSION 5 ML UDC PO SCH ×3 (11:50→20:35)
[2021-03-03] MEDS: METOPROLOL TARTRATE 25 MG TAB PO SCH ×2 (14:50→17:00)
[2021-03-04] VITALS (7 sets, daily range): BP systolic 134–167; BP diastolic 58–75
[2021-03-04] MEDS: CEFTRIAXONE 1 GM in SODIUM CHLORIDE 0.9% 50ML 50 ML IV SCH ×2 (05:45→16:30)
[2021-03-04] MEDS: BENZONATATE 100 MG CAP PO SCH ×3 (05:45→21:09)
[2021-03-04] MEDS: INSULIN LISPRO 100 UNIT/1 ML 3ML VIAL SQ SCH ×4 (08:30→21:15)
[2021-03-04 09:10] LABS: BASOPHILS % 0.2 % (0.0-1.0); EOSINOPHILS # (AUTO) 0.2 (0.0-0.4); EOSINOPHILS % 1.5 % (0.0-6.0); HEMATOCRIT 28.6 % (34.2-44.1); LYMPHOCYTES # (AUTO) 1.7 (1.0-3.2); LYMPHOCYTES % 13.9 % (18.0-39.1); MEAN CORPUSCULAR HEMOGLOBIN 26.8 pg (28-32); MEAN CORPUSCULAR HGB CONC 31.5 g/dL (31-35); MEAN CORPUSCULAR VOLUME 85.1 fL (81-99); MONOCYTES % 7.7 % (4.4-11.3); NEUTROPHILS # (AUTO) 9.3 (2.1-6.9); NEUTROPHILS % 75.8 % (38.7-80.0); PLATELET COUNT 218 x10e3/uL (140-360); RED BLOOD COUNT 3.36 x10e6/uL (3.6-5.1)
[2021-03-04 09:29] LABS: ANION GAP 12.6 mmol/L (8-16); CALCIUM 8.2 mg/dL (8.4-10.2); CREATININE, SERUM 0.95 mg/dL (0.57-1.11); MAGNESIUM 1.8 MG/DL (1.3-2.1); PHOSPHORUS 2.4 MG/DL (2.3-4.7); POTASSIUM 3.6 mmol/L (3.5-5.1)
[2021-03-04] MEDS: METOPROLOL TARTRATE 25 MG TAB PO SCH ×2 (09:40→17:20)
[2021-03-04] MEDS: HYDRALAZINE HCL 25 MG TAB PO SCH ×3 (09:45→21:08)
[2021-03-04] MEDS: NYSTATIN SUSPENSION 5 ML UDC PO SCH ×3 (09:45→21:09)
[2021-03-04] MEDS: GUAIFENESIN/DEXTROMETHORPHAN LIQD 5 ML UDC PO PRN (21:09)
[2021-03-05] VITALS (8 sets, daily range): BP systolic 134–159; BP diastolic 56–64
[2021-03-05] MEDS: BENZONATATE 100 MG CAP PO SCH ×3 (05:14→21:06)
[2021-03-05] MEDS: CEFTRIAXONE 1 GM in SODIUM CHLORIDE 0.9% 50ML 50 ML IV SCH ×2 (05:14→16:39)
[2021-03-05] MEDS: GUAIFENESIN/DEXTROMETHORPHAN LIQD 5 ML UDC PO PRN ×2 (05:29→20:20)
[2021-03-05] MEDS: HYDRALAZINE HCL 25 MG TAB PO SCH ×3 (09:55→20:39)
[2021-03-05] MEDS: INSULIN LISPRO 100 UNIT/1 ML 3ML VIAL SQ SCH ×4 (09:55→20:39)
[2021-03-05] MEDS: METOPROLOL TARTRATE 25 MG TAB PO SCH ×2 (09:56→16:39)
[2021-03-05] MEDS: NYSTATIN SUSPENSION 5 ML UDC PO SCH ×3 (09:56→20:39)
[2021-03-05] MEDS ORDERED: FUROSEMIDE INJ 10 MG/ML 4 ML VIAL IV ONE (13:15)
[2021-03-06] MEDS: HYDROCODONE/APAP 5MG-325MG TAB PO PRN ×2 (00:15→16:35)
[2021-03-06 00:44] VITALS: BP 154/57
[2021-03-06] MEDS: CEFTRIAXONE 1 GM in SODIUM CHLORIDE 0.9% 50ML 50 ML IV SCH (05:00)
[2021-03-06 05:22] VITALS: BP 140/58
[2021-03-06] MEDS: BENZONATATE 100 MG CAP PO SCH ×3 (05:38→21:02)
[2021-03-06 06:33] LABS: BASOPHILS % 0.3 % (0.0-1.0); EOSINOPHILS # (AUTO) 0.1 (0.0-0.4); HEMATOCRIT 27.6 % (34.2-44.1); HEMOGLOBIN 8.7 g/dL (12.0-16.0); LYMPHOCYTES # (AUTO) 2.5 (1.0-3.2); LYMPHOCYTES % 19.7 % (18.0-39.1); MEAN CORPUSCULAR HEMOGLOBIN 26.8 pg (28-32); MEAN CORPUSCULAR HGB CONC 31.5 g/dL (31-35); MEAN CORPUSCULAR VOLUME 84.9 fL (81-99); MONOCYTES % 7.5 % (4.4-11.3); NEUTROPHILS % 70.7 % (38.7-80.0); PLATELET COUNT 263 x10e3/uL (140-360); RED BLOOD COUNT 3.25 x10e6/uL (3.6-5.1); RED CELL DISTRIBUTION WIDTH 16.3 % (11.7-14.4)
[2021-03-06 06:56] LABS: ANION GAP 14.2 mmol/L (8-16); CALCIUM 7.5 mg/dL (8.4-10.2); CREATININE, SERUM 0.91 mg/dL (0.57-1.11); POTASSIUM 3.2 mmol/L (3.5-5.1)
[2021-03-06 08:00] VITALS: BP 140/58
[2021-03-06 08:14] VITALS: BP 137/52
[2021-03-06] MEDS: HYDRALAZINE HCL 25 MG TAB PO SCH ×3 (09:00→20:45)
[2021-03-06] MEDS: METOPROLOL TARTRATE 25 MG TAB PO SCH ×2 (09:00→16:26)
[2021-03-06] MEDS: NYSTATIN SUSPENSION 5 ML UDC PO SCH ×3 (09:00→20:45)
[2021-03-06] MEDS: INSULIN LISPRO 100 UNIT/1 ML 3ML VIAL SQ SCH ×4 (10:07→20:46)
[2021-03-06] MEDS ORDERED: POTASSIUM CHLORIDE 20 MEQ TAB CR PO PRN (12:45)
[2021-03-06 20:19] VITALS: BP 137/54
[2021-03-06 20:27] VITALS: BP 137/54
[2021-03-07] VITALS (8 sets, daily range): BP systolic 142–159; BP diastolic 48–112
[2021-03-07] MEDS: BENZONATATE 100 MG CAP PO SCH ×3 (05:26→21:05)
[2021-03-07] MEDS: INSULIN LISPRO 100 UNIT/1 ML 3ML VIAL SQ SCH ×4 (07:30→20:56)
[2021-03-07] MEDS: NYSTATIN SUSPENSION 5 ML UDC PO SCH ×3 (09:00→20:58)
[2021-03-07] MEDS: HYDRALAZINE HCL 25 MG TAB PO SCH ×3 (09:00→20:58)
[2021-03-07] MEDS: METOPROLOL TARTRATE 25 MG TAB PO SCH ×2 (09:00→16:39)
[2021-03-07] MEDS: GUAIFENESIN/DEXTROMETHORPHAN LIQD 5 ML UDC PO PRN (13:12)
[2021-03-07] MEDS: ALBUTEROL/IPRATROPIUM 3 ML NEB NEB PRN ×2 (16:24→19:15)
[2021-03-07] MEDS: ENOXAPARIN SOD INJ 40 MG/0.4 ML SYR SC SCH (16:39)
[2021-03-08] VITALS (8 sets, daily range): BP systolic 120–170; BP diastolic 47–66
[2021-03-08] MEDS: BENZONATATE 100 MG CAP PO SCH ×3 (05:18→21:17)
[2021-03-08 05:19] LABS: BASOPHILS % 0.2 % (0.0-1.0); EOSINOPHILS # (AUTO) 0.1 (0.0-0.4); EOSINOPHILS % 0.7 % (0.0-6.0); HEMATOCRIT 28.5 % (34.2-44.1); HEMOGLOBIN 9.1 g/dL (12.0-16.0); LYMPHOCYTES # (AUTO) 2.4 (1.0-3.2); LYMPHOCYTES % 18.4 % (18.0-39.1); MEAN CORPUSCULAR HGB CONC 31.9 g/dL (31-35); MEAN CORPUSCULAR VOLUME 84.6 fL (81-99); MONOCYTES # (AUTO) 0.9 (0.2-0.8); MONOCYTES % 7.1 % (4.4-11.3); NEUTROPHILS # (AUTO) 9.4 (2.1-6.9); NEUTROPHILS % 72.8 % (38.7-80.0); PLATELET COUNT 264 x10e3/uL (140-360); RED BLOOD COUNT 3.37 x10e6/uL (3.6-5.1); RED CELL DISTRIBUTION WIDTH 16.4 % (11.7-14.4)
[2021-03-08 05:28] LABS: ANION GAP 12.4 mmol/L (8-16); CALCIUM 7.4 mg/dL (8.4-10.2); CREATININE, SERUM 0.81 mg/dL (0.57-1.11); POTASSIUM 3.4 mmol/L (3.5-5.1)
[2021-03-08] MEDS: GUAIFENESIN/DEXTROMETHORPHAN LIQD 5 ML UDC PO PRN ×2 (06:33→21:28)
[2021-03-08] MEDS: ALBUTEROL/IPRATROPIUM 3 ML NEB NEB PRN (07:13)
[2021-03-08] MEDS: INSULIN LISPRO 100 UNIT/1 ML 3ML VIAL SQ SCH ×4 (07:30→21:28)
[2021-03-08] MEDS: NYSTATIN SUSPENSION 5 ML UDC PO SCH ×3 (09:00→21:16)
[2021-03-08] MEDS: METOPROLOL TARTRATE 25 MG TAB PO SCH ×2 (09:00→17:00)
[2021-03-08] MEDS: HYDRALAZINE HCL 25 MG TAB PO SCH ×3 (13:04→21:16)
[2021-03-08] MEDS: ENOXAPARIN SOD INJ 40 MG/0.4 ML SYR SC SCH (16:59)
[2021-03-09] VITALS (7 sets, daily range): BP systolic 133–165; BP diastolic 50–70
[2021-03-09] MEDS: BENZONATATE 100 MG CAP PO SCH ×3 (05:17→21:05)
[2021-03-09] MEDS: INSULIN LISPRO 100 UNIT/1 ML 3ML VIAL SQ SCH ×4 (07:30→21:17)
[2021-03-09] MEDS: HYDRALAZINE HCL 25 MG TAB PO SCH ×3 (09:54→21:06)
[2021-03-09] MEDS: NYSTATIN SUSPENSION 5 ML UDC PO SCH ×2 (09:54→14:26)
[2021-03-09] MEDS: METOPROLOL TARTRATE 25 MG TAB PO SCH ×2 (09:54→17:12)
[2021-03-09] MEDS: CEFTRIAXONE 1 GM in SODIUM CHLORIDE 0.9% 50ML 50 ML IV SCH (15:16)
[2021-03-09] MEDS: ENOXAPARIN SOD INJ 40 MG/0.4 ML SYR SC SCH (17:12)
[2021-03-09] MEDS: ALBUTEROL/IPRATROPIUM 3 ML NEB NEB PRN (20:18)
[2021-03-09] MEDS: GUAIFENESIN/DEXTROMETHORPHAN LIQD 5 ML UDC PO PRN (21:06)
[2021-03-10] VITALS (8 sets, daily range): BP systolic 126–153; BP diastolic 53–76
[2021-03-10] MEDS: GUAIFENESIN/DEXTROMETHORPHAN LIQD 5 ML UDC PO PRN (04:13)
[2021-03-10] MEDS: BENZONATATE 100 MG CAP PO SCH ×3 (04:58→20:44)
[2021-03-10] MEDS: INSULIN LISPRO 100 UNIT/1 ML 3ML VIAL SQ SCH ×4 (07:30→20:44)
[2021-03-10] MEDS: CEFTRIAXONE 1 GM in SODIUM CHLORIDE 0.9% 50ML 50 ML IV SCH (09:35)
[2021-03-10] MEDS: HYDRALAZINE HCL 25 MG TAB PO SCH ×3 (09:35→20:43)
[2021-03-10] MEDS: METOPROLOL TARTRATE 25 MG TAB PO SCH ×2 (09:35→17:19)
[2021-03-10] MEDS: ENOXAPARIN SOD INJ 40 MG/0.4 ML SYR SC SCH (17:19)
[2021-03-11] VITALS: BP 149/62
[2021-03-11 04:00] VITALS: BP 132/72
[2021-03-11] MEDS: BENZONATATE 100 MG CAP PO SCH ×2 (06:00→13:34)
[2021-03-11] MEDS: INSULIN LISPRO 100 UNIT/1 ML 3ML VIAL SQ SCH ×2 (07:30→11:30)
[2021-03-11 07:59] VITALS: BP 147/54
[2021-03-11] MEDS: CEFTRIAXONE 1 GM in SODIUM CHLORIDE 0.9% 50ML 50 ML IV SCH (09:14)
[2021-03-11] MEDS: HYDRALAZINE HCL 25 MG TAB PO SCH ×2 (09:15→13:42)
[2021-03-11] MEDS: METOPROLOL TARTRATE 25 MG TAB PO SCH (09:15)
[2021-03-11 09:29] VITALS: BP 147/59
[2021-03-11 12:15] VITALS: BP 119/49
== END 2021-03-11 15:20 | DRG 330 ==
LOC: ER 03:18 → ERHOLD 06:56 → MED/SURG2 08:01 → UNDODISIN 03-11 15:20
PROVIDERS: ADMIT Internal Medicine; ATTEND Internal Medicine
PROC: 0DTG4ZZ Resection of Left Large Intestine, Percutaneous Endoscopic Approach (ICD-10-PCS; principal; 2021-02-26 14:00)
DX: K57.32 Diverticulitis of large intestine without perforation or abscess without bleeding (principal); N39.0 Urinary tract infection, site not specified; Z16.24 Resistance to multiple antibiotics; K56.699 Other intestinal obstruction unspecified as to partial versus complete obstruction; E11.9 Type 2 diabetes mellitus without complications; E86.0 Dehydration; K52.9 Noninfective gastroenteritis and colitis, unspecified; B96.20 Unspecified Escherichia coli [E. coli] as the cause of diseases classified elsewhere; B96.89 Other specified bacterial agents as the cause of diseases classified elsewhere; Z90.49 Acquired absence of other specified parts of digestive tract; E66.01 Morbid (severe) obesity due to excess calories; Z68.36 Body mass index [BMI] 36.0-36.9, adult; J20.9 Acute bronchitis, unspecified; Z20.822 Contact with and (suspected) exposure to COVID-19
CPT/HCPCS: 36415; 71045; 74177; 80048; 80053; 80061; 81001; 82150; 82550; 82553; 82948; 83036; 83690; 83735; 84100; 84484; 85007; 85025; 85027; 87086; 87186; 88305; 88307; 94640; 94799; 96361; 96372; 97139; 99251; 99284; J0461; J0696; J1100; J1650; J1885; J1940; J2001; J2250; J2270; J2405; J2710; J2765; J3010; J7030; J7121; Q0162; Q9967; U0002

== ENCOUNTER 2021-05-12 16:46 | Emergency (ER) | payer MEDICARE ==
[~2021-05-12] VITALS: Ht 152.4 cm; Wt 86.2 kg
[2021-05-12 17:32] LABS: BASOPHILS % 0.3 % (0.0-1.0); EOSINOPHILS # (AUTO) 0.2 (0.0-0.4); EOSINOPHILS % 1.8 % (0.0-6.0); HEMOGLOBIN 10.2 g/dL (12.0-16.0); LYMPHOCYTES # (AUTO) 3.4 (1.0-3.2); LYMPHOCYTES % 36.4 % (18.0-39.1); MEAN CORPUSCULAR HEMOGLOBIN 26.6 pg (28-32); MEAN CORPUSCULAR HGB CONC 31.9 g/dL (31-35); MEAN CORPUSCULAR VOLUME 83.6 fL (81-99); MONOCYTES # (AUTO) 0.6 (0.2-0.8); MONOCYTES % 6.4 % (4.4-11.3); NEUTROPHILS # (AUTO) 5.1 (2.1-6.9); NEUTROPHILS % 54.9 % (38.7-80.0); PLATELET COUNT 341 x10e3/uL (140-360); RED BLOOD COUNT 3.83 x10e6/uL (3.6-5.1); RED CELL DISTRIBUTION WIDTH 17.7 % (11.7-14.4)
[2021-05-12] MEDS: ONDANSETRON HCL INJ 2MG/ML 2ML 2 MG/ML VIAL IV PRN ×2 (17:45→17:50)
[2021-05-12 17:54] LABS: ALBUMIN 2.5 g/dL (3.5-5.0); ALBUMIN/GLOBULIN RATIO 0.5 (0.8-2.0); CALCIUM 8.5 mg/dL (8.4-10.2); CREATININE, SERUM 0.78 mg/dL (0.57-1.11)
[2021-05-12 17:55] LABS: CLARITY,URINE SL CLOUDY (CLEAR); COLOR,URINE YELLOW (YELLOW); KETONES,URINE NEGATIVE (NEGATIVE); LEUKOCYTE ESTERASE ,URINE TRACE (NEGATIVE); NITRITE,URINE POSITIVE (NEGATIVE); PROTEIN,URINE DIPSTICK 2+ (NEGATIVE); URINE UROBILINOGEN 1 mg/dL (0.2 - 1)
[2021-05-12 18:06] LABS: BACTERIA,URINE MANY /HPF
[2021-05-12] MEDS ORDERED: CEFDINIR300 MG PO (19:44)
[2021-05-12] MEDS ORDERED: ONDANSETRON ODT4 MG PO (19:44)
[2021-05-12] MEDS ORDERED: CEFDINIR 300 MG CAP PO SCH (20:00)
[2021-05-12 20:25] VITALS: BP 132/81
== END 2021-05-12 20:26 | disposition home or self-care (01) ==
LOC: ER 17:24
DX: R10.33 Periumbilical pain (principal); K52.9 Noninfective gastroenteritis and colitis, unspecified; N30.90 Cystitis, unspecified without hematuria; R11.0 Nausea; I10 Essential (primary) hypertension; E11.65 Type 2 diabetes mellitus with hyperglycemia; E78.5 Hyperlipidemia, unspecified; M10.9 Gout, unspecified; Z87.19 Personal history of other diseases of the digestive system
CPT/HCPCS: 36415; 74177; 80053; 81001; 83690; 85025; 87086; 99284; J2405

== ENCOUNTER 2021-06-05 14:47 | Observation (INO) | payer MEDICARE ==
[~2021-06-05] VITALS: Ht 152.4 cm; Wt 86.2 kg
[~2021-06-05 14:47] MED LIST changes: +CEFDINIR300 MG PO
[2021-06-05] MEDS ORDERED: ONDANSETRON HCL INJ 2MG/ML 2ML 2 MG/ML VIAL IV STA (15:02)
[2021-06-05] MEDS ORDERED: Morphine 2mg Syringe 2 MG/ML SYR IV ONE (15:15)
[2021-06-05] MEDS ORDERED: SODIUM CHLORIDE 0.9% 1000ML 1,000 ML IV SCH (15:15)
[2021-06-05] MEDS ORDERED: DIATRIZOATE MEGL/DIATRIZOA SOD 30 ML BTL PO ONE (15:23)
[2021-06-05 15:28] LABS: BASOPHILS % 0.4 % (0.0-1.0); EOSINOPHILS # (AUTO) 0.1 (0.0-0.4); HEMATOCRIT 31.8 % (34.2-44.1); HEMOGLOBIN 10.1 g/dL (12.0-16.0); LYMPHOCYTES # (AUTO) 3.3 (1.0-3.2); LYMPHOCYTES % 32.3 % (18.0-39.1); MEAN CORPUSCULAR HEMOGLOBIN 27.2 pg (28-32); MEAN CORPUSCULAR HGB CONC 31.8 g/dL (31-35); MEAN CORPUSCULAR VOLUME 85.7 fL (81-99); MONOCYTES # (AUTO) 0.6 (0.2-0.8); MONOCYTES % 5.3 % (4.4-11.3); NEUTROPHILS # (AUTO) 6.3 (2.1-6.9); NEUTROPHILS % 60.8 % (38.7-80.0); PLATELET COUNT 307 x10e3/uL (140-360); RED BLOOD COUNT 3.71 x10e6/uL (3.6-5.1); RED CELL DISTRIBUTION WIDTH 17.3 % (11.7-14.4)
[2021-06-05 15:38] LABS: CLARITY,URINE HAZY (CLEAR); COLOR,URINE YELLOW (YELLOW); KETONES,URINE TRACE (NEGATIVE); LEUKOCYTE ESTERASE ,URINE TRACE (NEGATIVE); NITRITE,URINE NEGATIVE (NEGATIVE); PROTEIN,URINE DIPSTICK >=300 (NEGATIVE); URINE UROBILINOGEN 0.2 mg/dL (0.2 - 1)
[2021-06-05 15:41] LABS: AMORPHOUS SEDIMENT,URINE FEW (FEW); BACTERIA,URINE FEW /HPF; EPITHELIAL CELLS,URINE FEW /LPF
[2021-06-05 15:42] LABS: INR 0.87; PARTIAL THROMBOPLASTIN TIME 25.2 seconds (23.8-35.5); PROTHROMBIN TIME 12.7 seconds (11.9-14.5)
[2021-06-05 16:21] LABS: ALBUMIN 2.6 g/dL (3.5-5.0); ALBUMIN/GLOBULIN RATIO 0.6 (0.8-2.0); ANION GAP 12.1 mmol/L (8-16); CALCIUM 8.8 mg/dL (8.4-10.2); CREATININE, SERUM 0.84 mg/dL (0.57-1.11); POTASSIUM 3.1 mmol/L (3.5-5.1)
[2021-06-05] MEDS ORDERED: DEXTROSE 50% SYRINGE 50 ML IV STA (16:29)
[2021-06-05 16:30] LABS: CREATINE KINASE MB 0.3 ng/mL (0-5.0)
[2021-06-05 16:39] LABS: MAGNESIUM 1.5 MG/DL (1.3-2.1)
[2021-06-05] MEDS ORDERED: DEXTROSE 50% SYRINGE 50 ML IV ONE (16:40)
[2021-06-05] MEDS ORDERED: MEROPENEM 1 GM in SODIUM CHLORIDE 0.9% 100 ML IV ONE (17:00)
[2021-06-05] MEDS ORDERED: DEXTROSE 50% SYRINGE 50 ML IV PRN (17:30)
[2021-06-05] MEDS ORDERED: ONDANSETRON HCL INJ 2MG/ML 2ML 2 MG/ML VIAL IV PRN (17:30)
[2021-06-05] MEDS ORDERED: SODIUM CHLORIDE 0.9% 50ML 50 ML ONE (17:51)
[2021-06-05] MEDS ORDERED: IOPAMIDOL 370 MG/ML 200 ML INFUS..BTL INJ ONE (17:51)
[2021-06-05] MEDS: OCTREOTIDE ACETATE 0.05 MG/ML AMP SQ SCH ×2 (18:29→23:12)
[2021-06-05] MEDS: D5.45%NS/KCL 20MEQ 1,000 ML IV SCH (18:29)
[2021-06-05 19:36] LABS: CREATINE KINASE MB 0.3 ng/mL (0-5.0)
[2021-06-05 20:00] VITALS: BP 164/65
[2021-06-05 21:07] VITALS: BP 164/65
[2021-06-05 21:15] VITALS: BP 164/65
[2021-06-06] VITALS: BP 174/83
[2021-06-06 04:00] VITALS: BP 173/76
[2021-06-06] MEDS ORDERED: MEROPENEM 1 GM in SODIUM CHLORIDE 0.9% 100 ML IV SCH (05:00)
[2021-06-06] MEDS: OCTREOTIDE ACETATE 0.05 MG/ML AMP SQ SCH ×2 (05:08→11:33)
[2021-06-06 05:24] LABS: BASOPHILS % 0.3 % (0.0-1.0); EOSINOPHILS # (AUTO) 0.2 (0.0-0.4); EOSINOPHILS % 2.1 % (0.0-6.0); HEMATOCRIT 28.9 % (34.2-44.1); HEMOGLOBIN 9.2 g/dL (12.0-16.0); LYMPHOCYTES # (AUTO) 2.6 (1.0-3.2); LYMPHOCYTES % 34.4 % (18.0-39.1); MEAN CORPUSCULAR HEMOGLOBIN 27.5 pg (28-32); MEAN CORPUSCULAR HGB CONC 31.8 g/dL (31-35); MEAN CORPUSCULAR VOLUME 86.3 fL (81-99); MONOCYTES # (AUTO) 0.5 (0.2-0.8); MONOCYTES % 6.1 % (4.4-11.3); NEUTROPHILS # (AUTO) 4.3 (2.1-6.9); NEUTROPHILS % 56.7 % (38.7-80.0); PLATELET COUNT 218 x10e3/uL (140-360); RED BLOOD COUNT 3.35 x10e6/uL (3.6-5.1); RED CELL DISTRIBUTION WIDTH 17.2 % (11.7-14.4)
[2021-06-06 05:47] LABS: ALBUMIN 2.2 g/dL (3.5-5.0); ALBUMIN/GLOBULIN RATIO 0.6 (0.8-2.0); ALKALINE PHOSPHATASE 64 IU/L (40-150); ANION GAP 9.2 mmol/L (8-16); BLOOD UREA NITROGEN 7 mg/dL (7-26); BUN/CREATININE RATIO 10 (6-25); CARBON DIOXIDE 29 mmol/L (22-29); CHLORIDE 103 mmol/L (98-107); EST GLOMERULAR FILTRATION RATE 82 ML/MIN (60-); GLUCOSE 120 mg/dL (74-118); POTASSIUM 3.2 mmol/L (3.5-5.1); SODIUM 138 mmol/L (136-145)
[2021-06-06 05:48] LABS: ALANINE AMINOTRANSFERASE < 6 IU/L (0-55)
[2021-06-06 06:05] LABS: CREATINE KINASE MB 0.3 ng/mL (0-5.0)
[2021-06-06 08:14] VITALS: BP 149/64
[2021-06-06 08:30] VITALS: BP 149/64
[2021-06-06] MEDS: D5.45%NS/KCL 20MEQ 1,000 ML IV SCH (09:10)
[2021-06-06 09:49] LABS: CHOL/HDL RATIO 2.6 (3.0-3.6)
[2021-06-06] MEDS ORDERED: CEPHALEXIN500 MG PO (11:07)
[2021-06-06] MEDS ORDERED: ONDANSETRON ODT4 MG PO (11:07)
[2021-06-06] MEDS ORDERED: METRONIDAZOLE500 MG PO (11:07)
[2021-06-06] MEDS ORDERED: ONDANSETRON HCL 4 MG ORAL DISINTEGRATING TAB PO SCH (12:00)
[2021-06-06] MEDS ORDERED: METRONIDAZOLE 500MG/NS 100ML 100 ML IV SCH (14:00)
[2021-06-06] MEDS ORDERED: HYDRALAZINE HCL 25 MG TAB PO SCH (15:00)
[2021-06-06] MEDS ORDERED: FAMOTIDINE 20 MG TAB PO SCH (16:30)
[2021-06-06] MEDS ORDERED: ATORVASTATIN 20 MG TAB PO SCH (21:00)
[2021-06-07] MEDS ORDERED: CEFTRIAXONE 1 GM in SODIUM CHLORIDE 0.9% 50ML 50 ML IV SCH (09:00)
== END 2021-06-06 14:10 | disposition home or self-care (01) ==
LOC: ER 14:57 → ERHOLD 17:25 → INTOOBSV 17:25 → MED/SURG 19:50
PROVIDERS: ADMIT Internal Medicine; ATTEND Internal Medicine
DX: N39.0 Urinary tract infection, site not specified (principal); E16.0 Drug-induced hypoglycemia without coma; E11.649 Type 2 diabetes mellitus with hypoglycemia without coma; T38.3X5A Adverse effect of insulin and oral hypoglycemic [antidiabetic] drugs, initial encounter; Z79.899 Other long term (current) drug therapy; M10.9 Gout, unspecified; Z88.6 Allergy status to analgesic agent; Z91.018 Allergy to other foods; Z20.822 Contact with and (suspected) exposure to COVID-19; Z90.49 Acquired absence of other specified parts of digestive tract
CPT/HCPCS: 36415 ×2; 71045; 74177; 80053 ×2; 80061; 81001; 82550 ×2; 82553 ×2; 82948 ×2; 83036; 83605; 83690; 83735; 84484 ×2; 85025 ×2; 85610; 85730; 87040; 87086; 93005; 94799; 99284; C9113; G0378 ×2; J2185 ×2; J2270; J2354 ×2; J2405; J7030; J7050 ×2; J7799; Q0162; Q9967; U0002

== ENCOUNTER 2021-07-27 16:15 | Emergency (ER) | payer MEDICARE ==
[~2021-07-27] VITALS: Ht 152.4 cm; Wt 86.2 kg
[~2021-07-27 16:15] MED LIST changes: +CEPHALEXIN500 MG PO
[2021-07-27] MEDS ORDERED: ONDANSETRON HCL INJ 2MG/ML 2ML 2 MG/ML VIAL IV STA (16:33)
[2021-07-27] MEDS ORDERED: SODIUM CHLORIDE FLUSH 10 ML SYR IV PRN (16:45)
[2021-07-27 16:50] LABS: BASOPHILS % 0.2 % (0.0-1.0); EOSINOPHILS # (AUTO) 0.1 (0.0-0.4); EOSINOPHILS % 1.2 % (0.0-6.0); HEMATOCRIT 31.7 % (34.2-44.1); HEMOGLOBIN 9.9 g/dL (12.0-16.0); LYMPHOCYTES % 28.8 % (18.0-39.1); MEAN CORPUSCULAR HEMOGLOBIN 27.2 pg (28-32); MEAN CORPUSCULAR HGB CONC 31.2 g/dL (31-35); MEAN CORPUSCULAR VOLUME 87.1 fL (81-99); MONOCYTES # (AUTO) 0.7 (0.2-0.8); MONOCYTES % 6.5 % (4.4-11.3); NEUTROPHILS # (AUTO) 6.4 (2.1-6.9); PLATELET COUNT 290 x10e3/uL (140-360); RED BLOOD COUNT 3.64 x10e6/uL (3.6-5.1); RED CELL DISTRIBUTION WIDTH 15.5 % (11.7-14.4)
[2021-07-27 17:13] LABS: ALBUMIN 2.8 g/dL (3.5-5.0); ALBUMIN/GLOBULIN RATIO 0.6 (0.8-2.0); ANION GAP 13.9 mmol/L (8-16); CALCIUM 8.7 mg/dL (8.4-10.2); CREATININE, SERUM 0.83 mg/dL (0.57-1.11); POTASSIUM 3.9 mmol/L (3.5-5.1)
[2021-07-27] MEDS ORDERED: SODIUM CHLORIDE 0.9% 500ML 500 ML IV ONE (17:55)
[2021-07-27] MEDS ORDERED: ONDANSETRON ODT4 MG PO (18:42)
== END 2021-07-27 18:53 | disposition home or self-care (01) ==
LOC: ER 16:19
DX: R11.2 Nausea with vomiting, unspecified (principal); R42 Dizziness and giddiness; I10 Essential (primary) hypertension; E11.9 Type 2 diabetes mellitus without complications; E78.5 Hyperlipidemia, unspecified; M10.9 Gout, unspecified; Z87.19 Personal history of other diseases of the digestive system
CPT/HCPCS: 36415; 80053; 83690; 84484; 85025; 93005; 99284; J2405; J7040

== ENCOUNTER → 2023-11-16 | Day surgery (SDC) | payer MEDICARE ==
[~2023-11-16] MED LIST changes: +FENTANYL CITRATE/PF 100MCG/2 ML INJ ONE; +GLIPIZIDE5 MG PO; +LANTUS 3ML100 UNITS/ SC; +LIDOCAINE HCL 2% LOCAL INJ 5 ML SDV VIAL INJ ONE; +LISINOPRIL10 MG PO; +PROPOFOL IV EMULSION 10 MG/ML 20 ML VIAL ONE; +TRULICITY4.5 MG/0.5 SC
[2023-11-16] MEDS: LACTATED RINGER'S 1,000 ML ONE (08:17)
[2023-11-16 08:42] LABS: BASOPHILS % 0.3 % (0.0-1.0); EOSINOPHILS # (AUTO) 0.1 (0.0-0.4); HEMATOCRIT 31.9 % (34.2-44.1); LYMPHOCYTES # (AUTO) 2.5 (1.0-3.2); LYMPHOCYTES % 26.3 % (18.0-39.1); MEAN CORPUSCULAR HEMOGLOBIN 26.6 pg (28-32); MEAN CORPUSCULAR HGB CONC 31.3 g/dL (31-35); MEAN CORPUSCULAR VOLUME 84.8 fL (81-99); MONOCYTES # (AUTO) 0.6 (0.2-0.8); MONOCYTES % 6.3 % (4.4-11.3); NEUTROPHILS # (AUTO) 6.2 (2.1-6.9); NEUTROPHILS % 65.9 % (38.7-80.0); PLATELET COUNT 218 x10e3/uL (140-360); RED BLOOD COUNT 3.76 x10e6/uL (3.6-5.1); RED CELL DISTRIBUTION WIDTH 14.8 % (11.7-14.4); WHITE BLOOD COUNT 9.45 x10e3/uL (4.8-10.8)
[2023-11-16 11:04] VITALS: TEMP 97.7
[2023-11-16 11:30] VITALS: BP 152/73; PULSE 65; RESP 16; O2SAT 98
== END | disposition home or self-care (01) ==
LOC: OR 07:13
PROVIDERS: ATTEND Internal Medicine Gastroenterology
DX: K29.50 Unspecified chronic gastritis without bleeding (principal); D12.5 Benign neoplasm of sigmoid colon; K21.9 Gastro-esophageal reflux disease without esophagitis; K31.89 Other diseases of stomach and duodenum; Z98.0 Intestinal bypass and anastomosis status; K64.8 Other hemorrhoids; Z71.3 Dietary counseling and surveillance; D50.9 Iron deficiency anemia, unspecified; I10 Essential (primary) hypertension; E11.9 Type 2 diabetes mellitus without complications; J30.2 Other seasonal allergic rhinitis; R06.02 Shortness of breath; M19.90 Unspecified osteoarthritis, unspecified site; Z88.6 Allergy status to analgesic agent; Z79.4 Long term (current) use of insulin; Z79.84 Long term (current) use of oral hypoglycemic drugs; Z79.899 Other long term (current) drug therapy; Z68.32 Body mass index [BMI] 32.0-32.9, adult
CPT/HCPCS: 36415; 43239; 45385; 85025; 88305; 88342; 93005; J2001; J2704; J3010; J7121; 45378

== ENCOUNTER 2024-04-28 12:58 | Emergency (ER) | payer MEDICARE ==
[~2024-04-28] VITALS: Ht 152.4 cm; Wt 74.4 kg
[~2024-04-28 12:58] MED LIST changes: -FENTANYL CITRATE/PF 100MCG/2 ML INJ ONE; -LIDOCAINE HCL 2% LOCAL INJ 5 ML SDV VIAL INJ ONE; -PROPOFOL IV EMULSION 10 MG/ML 20 ML VIAL ONE
[2024-04-28 13:04] VITALS: TEMP 98.2
[2024-04-28 14:11] LABS: BASOPHILS % 0.3 % (0.0-1.0); EOSINOPHILS # (AUTO) 0.1 (0.0-0.4); EOSINOPHILS % 0.8 % (0.0-6.0); HEMATOCRIT 33.6 % (34.2-44.1); HEMOGLOBIN 10.8 g/dL (12.0-16.0); LYMPHOCYTES % 19.4 % (18.0-39.1); MEAN CORPUSCULAR HEMOGLOBIN 27.3 pg (28-32); MEAN CORPUSCULAR HGB CONC 32.1 g/dL (31-35); MEAN CORPUSCULAR VOLUME 85.1 fL (81-99); MONOCYTES # (AUTO) 0.8 (0.2-0.8); MONOCYTES % 7.8 % (4.4-11.3); NEUTROPHILS # (AUTO) 7.4 (2.1-6.9); NEUTROPHILS % 71.3 % (38.7-80.0); PLATELET COUNT 275 x10e3/uL (140-360); RED BLOOD COUNT 3.95 x10e6/uL (3.6-5.1); RED CELL DISTRIBUTION WIDTH 14.5 % (11.7-14.4); WHITE BLOOD COUNT 10.36 x10e3/uL (4.8-10.8)
[2024-04-28 14:39] LABS: ALBUMIN 2.8 g/dL (3.5-5.0); ALBUMIN/GLOBULIN RATIO 0.7 (0.8-2.0); ANION GAP 16.8 mmol/L (8-16); BILIRUBIN,TOTAL 0.3 mg/dL (0.2-1.2); CALCIUM 7.9 mg/dL (8.4-10.2); CREATININE, SERUM 1.34 mg/dL (0.57-1.11); POTASSIUM 3.8 mmol/L (3.5-5.1); TOTAL PROTEIN 6.8 g/dL (6.5-8.1)
[2024-04-28 16:13] LABS: BILIRUBIN,URINE NEGATIVE (NEGATIVE); CLARITY,URINE CLOUDY (CLEAR); COLOR,URINE YELLOW (YELLOW); GLUCOSE, URINE 1+ (NEGATIVE); KETONES,URINE TRACE (NEGATIVE); LEUKOCYTE ESTERASE ,URINE 2+ (NEGATIVE); NITRITE,URINE NEGATIVE (NEGATIVE); PH,URINE 5.5 (5 - 7); PROTEIN,URINE DIPSTICK 2+ (NEGATIVE); URINE UROBILINOGEN 0.2 mg/dL (0.2 - 1)
[2024-04-28] MEDS: SODIUM CHLORIDE 0.9% 1000ML 1,000 ML IV SCH (16:13)
[2024-04-28 16:25] LABS: BACTERIA,URINE MANY /HPF; EPITHELIAL CELLS,URINE MODERATE /LPF
[2024-04-28] MEDS ORDERED: CEFDINIR300 MG PO (16:47)
[2024-04-28 17:03] VITALS: PULSE 78; RESP 16; O2SAT 100
== END 2024-04-28 17:52 | disposition home or self-care (01) ==
LOC: ER 13:11
DX: R55 Syncope and collapse (principal); R42 Dizziness and giddiness; W18.11XA Fall from or off toilet without subsequent striking against object, initial encounter; N39.0 Urinary tract infection, site not specified; I10 Essential (primary) hypertension; E11.65 Type 2 diabetes mellitus with hyperglycemia; E78.5 Hyperlipidemia, unspecified; M10.9 Gout, unspecified; R94.31 Abnormal electrocardiogram [ECG] [EKG]; Z87.19 Personal history of other diseases of the digestive system
CPT/HCPCS: 36415; 70450; 71045; 80053; 81001; 83880; 84484; 85025; 93005; 99285; J7030

== ENCOUNTER 2024-06-20 02:07 | Inpatient (IN) | payer MEDICARE ==
[~2024-06-20] VITALS: Ht 152.4 cm; Wt 75.5 kg
[2024-06-20] VITALS (13 sets, daily range): BP systolic 137–175; BP diastolic 57–80; PULSE 64–74; RESP 16–21; TEMP 97.9–99.1; O2SAT 96–100
[2024-06-20 02:29] LABS: BASOPHILS % 0.3 % (0.0-1.0); EOSINOPHILS # (AUTO) 0.2 (0.0-0.4); HEMATOCRIT 33.9 % (34.2-44.1); LYMPHOCYTES # (AUTO) 2.2 (1.0-3.2); LYMPHOCYTES % 25.8 % (18.0-39.1); MEAN CORPUSCULAR HEMOGLOBIN 26.4 pg (28-32); MEAN CORPUSCULAR HGB CONC 32.4 g/dL (31-35); MEAN CORPUSCULAR VOLUME 81.3 fL (81-99); MONOCYTES # (AUTO) 0.7 (0.2-0.8); MONOCYTES % 8.1 % (4.4-11.3); NEUTROPHILS # (AUTO) 5.5 (2.1-6.9); NEUTROPHILS % 63.5 % (38.7-80.0); PLATELET COUNT 254 x10e3/uL (140-360); RED BLOOD COUNT 4.17 x10e6/uL (3.6-5.1); RED CELL DISTRIBUTION WIDTH 13.9 % (11.7-14.4); WHITE BLOOD COUNT 8.62 x10e3/uL (4.8-10.8)
[2024-06-20] MEDS: SODIUM CHLORIDE 0.9% 1000ML 1,000 ML IV STA (02:37)
[2024-06-20 02:51] LABS: BILIRUBIN,URINE NEGATIVE (NEGATIVE); CLARITY,URINE SL CLOUDY (CLEAR); COLOR,URINE YELLOW (YELLOW); GLUCOSE, URINE 2+ (NEGATIVE); KETONES,URINE NEGATIVE (NEGATIVE); LEUKOCYTE ESTERASE ,URINE SMALL (NEGATIVE); NITRITE,URINE NEGATIVE (NEGATIVE); PH,URINE 5.5 (5 - 7); PROTEIN,URINE DIPSTICK 2+ (NEGATIVE); URINE UROBILINOGEN 0.2 mg/dL (0.2 - 1)
[2024-06-20 02:53] LABS: ALBUMIN 3.4 g/dL (3.5-5.0); ALBUMIN/GLOBULIN RATIO 0.7 (0.8-2.0); ANION GAP 14.2 mmol/L (8-16); BILIRUBIN,TOTAL 0.4 mg/dL (0.2-1.2); CALCIUM 9.1 mg/dL (8.4-10.2); CREATININE, SERUM 1.45 mg/dL (0.57-1.11); POTASSIUM 4.2 mmol/L (3.5-5.1); TOTAL PROTEIN 8.3 g/dL (6.5-8.1)
[2024-06-20 02:59] LABS: TROPONIN I 0.004 ng/mL (0-0.300)
[2024-06-20 03:16] LABS: BACTERIA,URINE MANY /HPF; EPITHELIAL CELLS,URINE FEW /LPF; WBC,URINE (MAN) >50 /HPF (0-5)
[2024-06-20] MEDS ORDERED: Morphine 2mg Syringe 2 MG/ML SYR IV PRN (03:45)
[2024-06-20] MEDS ORDERED: HYDRALAZINE HCL 20 MG/ML VIAL ONE (04:00)
[2024-06-20] MEDS: SODIUM CHLORIDE 0.9% 1000ML 1,000 ML IV SCH (04:10)
[2024-06-20] MEDS: HYDRALAZINE HCL 20 MG/ML VIAL IV PRN (04:10)
[2024-06-20] MEDS ORDERED: INFLUENZA VIRUS VAC SPLIT INJ 0.5 ML SYR IM SCH (06:44)
[2024-06-20] MEDS ORDERED: PNEUMOCOCCAL VACCINE POLYVALENT 23 MCG/0.5 ML VIAL IM SCH (06:44)
[2024-06-20 10:15] LABS: CORONAVIRUS COVID-19 AG NEGATIVE (NEGATIVE); INFLUENZA A AG NEGATIVE (NEGATIVE); INFLUENZA B AG NEGATIVE (NEGATIVE)
[2024-06-20] MEDS ORDERED: METOPROLOL TARTRATE INJ 1 MG/ML VIAL IV PRN (11:15)
[2024-06-20] MEDS ORDERED: ACETAMINOPHEN 325 MG TAB PO PRN (11:15)
[2024-06-20] MEDS ORDERED: MELATONIN 3 MG TAB PO PRN (11:15)
[2024-06-20] MEDS ORDERED: DOCUSATE SODIUM 100 MG CAP PO PRN (11:15)
[2024-06-20] MEDS ORDERED: DEXTROSE 50% SYRINGE 50 ML IV PRN (11:15)
[2024-06-20] MEDS ORDERED: ALBUTEROL/IPRATROPIUM 3 ML NEB NEB PRN (11:15)
[2024-06-20] MEDS: INSULIN REGULAR, HUMAN 100 UNIT/1 ML SQ SCH (11:44)
[2024-06-20 14:23] LABS: CHOL/HDL RATIO 3.2 (3.0-3.6)
[2024-06-20 15:33] LABS: TROPONIN I 0.003 ng/mL (0-0.300)
[2024-06-20] MEDS ORDERED: FAMOTIDINE 20 MG TAB PO SCH (16:30)
[2024-06-20] MEDS: ENOXAPARIN SOD INJ 40 MG/0.4 ML SYR SC SCH (16:55)
[2024-06-21] VITALS (10 sets, daily range): BP systolic 129–175; BP diastolic 62–78; PULSE 58–89; RESP 16–20; TEMP 97.5–98.6; O2SAT 95–100
[2024-06-21 06:25] LABS: BASOPHILS % 0.4 % (0.0-1.0); EOSINOPHILS # (AUTO) 0.2 (0.0-0.4); EOSINOPHILS % 2.5 % (0.0-6.0); HEMATOCRIT 28.4 % (34.2-44.1); HEMOGLOBIN 9.2 g/dL (12.0-16.0); LYMPHOCYTES # (AUTO) 2.5 (1.0-3.2); LYMPHOCYTES % 32.3 % (18.0-39.1); MEAN CORPUSCULAR HEMOGLOBIN 26.7 pg (28-32); MEAN CORPUSCULAR HGB CONC 32.4 g/dL (31-35); MEAN CORPUSCULAR VOLUME 82.6 fL (81-99); MONOCYTES # (AUTO) 0.6 (0.2-0.8); MONOCYTES % 7.1 % (4.4-11.3); NEUTROPHILS # (AUTO) 4.5 (2.1-6.9); NEUTROPHILS % 57.4 % (38.7-80.0); PLATELET COUNT 223 x10e3/uL (140-360); RED BLOOD COUNT 3.44 x10e6/uL (3.6-5.1); RED CELL DISTRIBUTION WIDTH 14.3 % (11.7-14.4); WHITE BLOOD COUNT 7.75 x10e3/uL (4.8-10.8)
[2024-06-21 07:04] LABS: ALBUMIN 2.5 g/dL (3.5-5.0); ALBUMIN/GLOBULIN RATIO 0.6 (0.8-2.0); ANION GAP 12.6 mmol/L (8-16); BILIRUBIN,TOTAL 0.6 mg/dL (0.2-1.2); CALCIUM 7.9 mg/dL (8.4-10.2); CREATININE, SERUM 1.31 mg/dL (0.57-1.11); POTASSIUM 4.6 mmol/L (3.5-5.1); TOTAL PROTEIN 6.5 g/dL (6.5-8.1)
[2024-06-21 07:10] LABS: TROPONIN I 0.009 ng/mL (0-0.300)
[2024-06-21 07:23] LABS: FERRITIN 24.39 ng/mL (4.63-204.00)
[2024-06-21] MEDS ORDERED: SODIUM BICARBONATE 8.4% SYRING 100 ML in DEXTROSE 5% 1,000 ML IV SCH ×2 (10:45→12:30)
[2024-06-21] MEDS: FAMOTIDINE 20 MG TAB PO SCH (12:33)
[2024-06-21] MEDS: SODIUM BICARBONATE 8.4% VIAL 100 ML in DEXTROSE 5% 1,000 ML IV SCH (13:48)
[2024-06-22] VITALS (12 sets, daily range): BP systolic 126–180; BP diastolic 57–77; PULSE 62–88; RESP 18–20; TEMP 97.5–99.5; O2SAT 97–100
[2024-06-22 11:04] LABS: BASOPHILS % 0.4 % (0.0-1.0); EOSINOPHILS # (AUTO) 0.1 (0.0-0.4); EOSINOPHILS % 1.5 % (0.0-6.0); HEMATOCRIT 30.4 % (34.2-44.1); HEMOGLOBIN 9.6 g/dL (12.0-16.0); LYMPHOCYTES # (AUTO) 1.6 (1.0-3.2); LYMPHOCYTES % 19.1 % (18.0-39.1); MEAN CORPUSCULAR HEMOGLOBIN 26.4 pg (28-32); MEAN CORPUSCULAR HGB CONC 31.6 g/dL (31-35); MEAN CORPUSCULAR VOLUME 83.7 fL (81-99); MONOCYTES # (AUTO) 0.5 (0.2-0.8); MONOCYTES % 6.2 % (4.4-11.3); NEUTROPHILS # (AUTO) 6.2 (2.1-6.9); NEUTROPHILS % 72.2 % (38.7-80.0); PLATELET COUNT 216 x10e3/uL (140-360); RED BLOOD COUNT 3.63 x10e6/uL (3.6-5.1); RED CELL DISTRIBUTION WIDTH 14.4 % (11.7-14.4); WHITE BLOOD COUNT 8.52 x10e3/uL (4.8-10.8)
[2024-06-22 11:18] LABS: ANION GAP 15.2 mmol/L (8-16); CALCIUM 8.1 mg/dL (8.4-10.2); CREATININE, SERUM 1.5 mg/dL (0.57-1.11); POTASSIUM 4.2 mmol/L (3.5-5.1)
[2024-06-22] MEDS: INSULIN GLARGINE 100 UNITS/ML VIAL SQ SCH (12:23)
[2024-06-23] VITALS (12 sets, daily range): BP systolic 109–183; BP diastolic 57–73; PULSE 61–100; RESP 18–20; TEMP 97.1–98.6; O2SAT 96–100
[2024-06-23 05:53] LABS: BASOPHILS % 0.4 % (0.0-1.0); EOSINOPHILS # (AUTO) 0.2 (0.0-0.4); EOSINOPHILS % 1.9 % (0.0-6.0); HEMATOCRIT 30.8 % (34.2-44.1); LYMPHOCYTES # (AUTO) 2.2 (1.0-3.2); LYMPHOCYTES % 21.7 % (18.0-39.1); MEAN CORPUSCULAR HEMOGLOBIN 26.4 pg (28-32); MEAN CORPUSCULAR HGB CONC 32.5 g/dL (31-35); MEAN CORPUSCULAR VOLUME 81.3 fL (81-99); MONOCYTES # (AUTO) 0.7 (0.2-0.8); MONOCYTES % 6.4 % (4.4-11.3); NEUTROPHILS # (AUTO) 7.1 (2.1-6.9); NEUTROPHILS % 69.1 % (38.7-80.0); PLATELET COUNT 250 x10e3/uL (140-360); RED BLOOD COUNT 3.79 x10e6/uL (3.6-5.1); RED CELL DISTRIBUTION WIDTH 14.5 % (11.7-14.4); WHITE BLOOD COUNT 10.25 x10e3/uL (4.8-10.8)
[2024-06-23 06:10] LABS: ANION GAP 14.9 mmol/L (8-16); CALCIUM 8.7 mg/dL (8.4-10.2); CREATININE, SERUM 1.42 mg/dL (0.57-1.11); POTASSIUM 3.9 mmol/L (3.5-5.1)
[2024-06-23] MEDS: ONDANSETRON HCL INJ 2MG/ML 2ML 2 MG/ML VIAL IV PRN (19:47)
[2024-06-24] VITALS (7 sets, daily range): BP systolic 154–165; BP diastolic 61–86; PULSE 58–74; RESP 17–20; TEMP 97.5–98.8; O2SAT 95–100
[2024-06-24 09:38] LABS: ANION GAP 12.8 mmol/L (8-16); CALCIUM 8.5 mg/dL (8.4-10.2); CREATININE, SERUM 1.41 mg/dL (0.57-1.11); POTASSIUM 3.8 mmol/L (3.5-5.1)
[2024-06-24] MEDS: FUROSEMIDE INJ 10 MG/ML 2 ML VIAL IV ONE (12:01)
[2024-06-24] MEDS: HYDRALAZINE HCL 10 MG TAB PO SCH (13:24)
== END 2024-06-24 16:50 | disposition home health service (06) | DRG 690 ==
LOC: ER 02:12 → ERHOLD 03:35 → MED/SURG2 04:41
PROVIDERS: ADMIT Internal Medicine; ATTEND Internal Medicine
DX: N39.0 Urinary tract infection, site not specified (principal); N17.9 Acute kidney failure, unspecified; E86.0 Dehydration; N18.30 Chronic kidney disease, stage 3 unspecified; D63.1 Anemia in chronic kidney disease; I12.9 Hypertensive chronic kidney disease with stage 1 through stage 4 chronic kidney disease, or unspecified chronic kidney disease; E11.22 Type 2 diabetes mellitus with diabetic chronic kidney disease; I44.7 Left bundle-branch block, unspecified; E78.5 Hyperlipidemia, unspecified; R26.2 Difficulty in walking, not elsewhere classified; M10.9 Gout, unspecified; I73.9 Peripheral vascular disease, unspecified; Z11.52 Encounter for screening for COVID-19; R53.81 Other malaise; E66.9 Obesity, unspecified; Z68.32 Body mass index [BMI] 32.0-32.9, adult; Z79.4 Long term (current) use of insulin; Z79.85 Long-term (current) use of injectable non-insulin antidiabetic drugs; Z79.84 Long term (current) use of oral hypoglycemic drugs; Z90.49 Acquired absence of other specified parts of digestive tract; Z88.6 Allergy status to analgesic agent; Z91.018 Allergy to other foods
CPT/HCPCS: 36415; 51700; 70450; 71045; 80048; 80053; 80061; 81001; 82550; 82607; 82728; 82948; 83036; 83540; 83880; 84466; 84484; 85025; 93005; 94799; 96372; 99252; 99284; J0360; J1650; J1940; J2405; J2543; J7030; J7070